=== PATIENT | female | born 1935 | race Caucasian/White ===

== ENCOUNTER 2016-10-18 05:39 | Inpatient (IN) | payer OTHER, MEDICARE ==
[2016-10-18] MEDS ORDERED: NS 1,000 ML IV ONE (05:49)
[2016-10-18] MEDS ORDERED: HYDROmorphONE/DILAUDID 1 MG/ML SYR IVP ONE (05:49)
[2016-10-18] MEDS ORDERED: ONDANSETRON 4 MG/2 ML VIAL IVP ONE (05:49)
--- NOTE | 2016-10-18 05:52 | EDPHY ---
H & P Stated Complaint: abd pain/distension; last BM 2 days ago Time Seen by Provider: 10/18/16 05:47 HPI/ROS: CHIEF COMPLAINT: Abdominal pain and vomiting HISTORY OF PRESENT ILLNESS: Patient is an 80-year-old female with a history of ovarian cancer multiple metastasis and surgeries and radiation. 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 Her son states that she has not had a bowel movement in 2 days and that this is typical of her small bowel obstructions. She states she did pass some gas yesterday. The son states that they typically try to do with this at home with oxycodone but that she cannot keep it down. She is admitted here in April of last year for 3 days and her symptoms resolved with an NG tube. She was given fentanyl and Zofran by EMS and now feels that her pain is much better down to a 4/10. Originally was 10/10. No fever. No chest pain or shortness of breath. She does feel distended and bloated. REVIEW OF SYSTEMS: Constitutional: denies: chills, fever, recent illness, recent injury EENTM: denies: blurred vision, double vision, nose congestion Respiratory: denies: cough, shortness of breath Cardiac: denies: chest pain, irregular heart rate, lightheadedness, palpitations Gastrointestinal/Abdominal: see HPI Genitourinary: denies: dysuria, frequency, hematuria, pain Musculoskeletal: denies: joint pain, muscle pain Skin: denies: lesions, rash, jaundice, bruising Neurological: denies: headache, numbness, paresthesia, tingling, dizziness, weakness Hematologic/Lymphatic: denies: blood clots, easy bleeding, easy bruising Immunologic/allergic: denies: HIV/AIDS, transplant EXAM: GENERAL: Well-appearing, well-nourished and in no acute distress. HEAD: Atraumatic, normocephalic. EYES: Pupils equal round and reactive to light, extraocular movements intact, sclera anicteric, conjunctiva are normal. ENT: TMs normal, nares patent, oropharynx clear without exudates. Moist mucous membranes. NECK: Normal range of motion, supple without lymphadenopathy or JVD. LUNGS: Breath sounds clear to auscultation bilaterally and equal. No wheezes rales or rhonchi. HEART: Regular rate and rhythm without murmurs, rubs or gallops. ABDOMEN: Mildly distended, no focal tenderness. BACK: No CVA tenderness, no spinal tenderness, step-offs or deformities EXTREMITIES: Normal range of motion, no pitting or edema. No clubbing or cyanosis. NEUROLOGICAL: Cranial nerves II through XII grossly intact. Normal speech, normal gait. 5/5 strength, normal movement in all extremities, normal sensation PSYCH: Normal mood, normal affect. SKIN: Warm, dry, normal turgor, no visible rashes or lesions. Source: Patient Exam Limitations: No limitations - Personal History Current Tetanus/Diphtheria Vaccine: Unsure Tetanus Vaccine Date: unsure - Medical/Surgical History Hx Asthma: No Hx Chronic Respiratory Disease: No Hx Diabetes: No Hx Cardiac Disease: No Hx Renal Disease: No Hx Cirrhosis: No Hx Alcoholism: No Hx HIV/AIDS: No Hx Splenectomy or Spleen Trauma: No Other PMH: ovarian CA diag 30 yr ago with 7surg & 1 round of chemo, depression, back surgery, PNA. - Family History Significant Family History: No pertinent family hx - Social History Smoking Status: Never smoked Alcohol Use: Sober Drug Use: None Constitutional: Initial Vital Signs Temperature (C) 36.2 C 10/18/16 05:45 Heart Rate 65 10/18/16 05:45 Respiratory Rate 17 10/18/16 05:45 Blood Pressure 155/55 H 10/18/16 05:45 O2 Sat (%) 95 10/18/16 05:45 O2 Delivery Mode Nasal Cannula O2 (L/minute) 2 Allergies/Adverse Reactions: Iodinated Contrast Media - Oral and [Iodinated Contrast Media - IV Dye] Allergy (Verified 01/17/16 22:05) Dyspnea IODINE Allergy (Severe, Uncoded 09/01/14 11:40) Dyspnea DAISIES Allergy (Uncoded 09/01/14 11:40) Other-Enter Comments tape Allergy (Uncoded 09/01/14 11:40) Home Medications: Medication Instructions Recorded AMITRIPTYLINE HCL [Amitriptyline 25 mg PO HS 10/28/11 25 mg] Cyanocobalamin (Vitamin B-12) 1,000 mcg PO DAILY 10/28/11 [Vitamin B-12] Diazepam [Valium] 5 mg PO Q6 PRN 10/28/11 Multivitamin [Daily Multiple 1 each PO DAILY 10/28/11 Vitamin] Cholecalciferol Vit D3 [Vitamin D3 1,000 units PO DAILY 04/10/14 (*)] Lorazepam [Ativan] 1 mg PO HS 04/10/14 Sennosides/Docusate Sodium 2 each PO HS PRN 04/10/14 [Senokot-S] Acetaminophen [Tylenol 325mg (*)] 650 mg PO Q4 PRN #0 tab 01/20/16 DULoxetine [Cymbalta 30 MG (*)] 60 mg PO DAILY 04/24/16 Ondansetron HCl [Zofran] 4 mg PO Q6 PRN 04/24/16 Pregabalin [Lyrica 50mg (*)] 100 mg PO BID #120 cap 04/27/16 morphINE SR [Ms Contin/Oramorph 15 15 mg PO BID 10/18/16 mg (*)] Medical Decision Making - Diagnostics Imaging: Results: CT scan of the abdomen and pelvis was obtained. The results of the study are positive for small bowel obstruction and worsening mass in bladder and bones. The study was read by Dr. Navarrete. I viewed the images myself on the PACS system. ED Course/Re-evaluation: 6:55 a.[address]. we discussed the CT results. We have trouble getting blood work. I recommended NG tube and admission. The patient family agree. 7:00 a.m. I discussed the case with Dr. Dorie Jernigan who will admit to the medical service. She asked that I consult surgery. 7:00 a.m. I discussed the case with Dr. Tan Olivo who will consult. Differential Diagnosis: Partial list of the Differential diagnosis considered include but were not limited to; small bowel obstruction, electrolyte abnormality, gastritis and although unlikely based on the history and physical exam, I also considered ischemia, volvulus. - Data Points Laboratory Results: Laboratory Results 10/18/16 06:55 10/18/16 06:55 Medications Given: Discontinued Medications Hydromorphone HCl (Dilaudid) 0.5 mg IVP EDNOW ONE Stop: 10/18/16 05:50 Last Admin: 10/18/16 06:07 Dose: 0.5 mg Hydromorphone HCl (Dilaudid) 0.25 - 1 mg IVP Q4HRS PRN PRN Reason: Pain, Severe Unable to Take PO Stop: 10/28/16 07:17 Last Admin: 10/18/16 14:15 Dose: 0.5 mg Hydromorphone HCl (Dilaudid) 0.25 - 1 mg IVP Q2 PRN PRN Reason: Pain, Severe Unable to Take PO Stop: 10/28/16 07:17 Last Admin: 10/19/16 13:07 Dose: 1 mg Sodium Chloride (Ns) 1,000 mls @ 0 mls/hr IV ONCE ONE PRN Reason: Wide Open Stop: 10/18/16 05:50 Last Admin: 10/18/16 06:04 Dose: 1,000 mls Potassium Chloride/Dextrose/Sod Cl (D5w Ns W/ 20 Kcl/L) 1,000 mls @ 125 mls/hr IV CONT AICHA Stop: 04/16/17 10:44 Last Admin: 10/18/16 15:16 Dose: 1,000 mls Lorazepam (Ativan Injection) 0.5 - 1 mg IVP Q4HRS PRN PRN Reason: Anxiety, Unable to Take PO Stop: 04/16/17 20:11 Last Admin: 10/18/16 20:59 Dose: 1 mg Ondansetron HCl (Zofran) 4 mg IVP EDNOW ONE Stop: 10/18/16 05:50 Last Admin: 10/18/16 06:04 Dose: 4 mg Ondansetron HCl (Zofran) 4 mg IVP Q4HRS PRN PRN Reason: Nausea/Vomiting, Can't Take PO Stop: 04/16/17 07:17 Last Admin: 10/18/16 14:15 Dose: 4 mg Promethazine HCl (Phenergan Injection) 6.25 - 12.5 mg IVP Q6HRS PRN PRN Reason: Nausea/Vomiting, Use 2nd Stop: 04/16/17 07:17 Last Admin: 10/18/16 15:25 Dose: 12.5 mg Departure - Departure Disposition: [facility] Acute Clinical Impression: Small bowel obstruction Condition: Fair
[2016-10-18] MEDS ORDERED: BENZOCAINE UNIT DOSE SPRAY HURRICAINE MM ONE (07:10)
[2016-10-18 07:14] LABS: % IMMATURE GRANULYOCYTES 0.3 % (0.0-1.1); ABSOLUTE IMMATURE GRANULOCYTES 0.04 10^3/uL (0.00-0.10); ADD DIFF? NO; ADD MORPH? NO; ADD SCAN? NO; ATYPICAL LYMPHOCYTE FLAG 0 (0-99); FRAGMENT RBC FLAG 0 (0-99); HEMATOCRIT 38.1 % (38.0-47.0); HEMOGLOBIN 12.8 g/dL (12.6-16.3); LEFT SHIFT FLG 30 (0-99); LIPEMIA HEMOLYSIS FLAG 80 (0-99); MEAN CELL HEMOGLOBIN 29.2 pg (27.9-34.1); MEAN CELL HEMOGLOBIN CONCENTR. 33.6 g/dL (32.4-36.7); MEAN CELL VOLUME 86.8 fL (81.5-99.8); MEAN PLATELET VOLUME 13.1 fL (8.7-11.7); PLATELET CLUMPS FLAG 0 (0-99); PLATELET COUNT 143 10^3/uL (150-400); RED BLOOD CELL COUNT 4.39 10^6/uL (4.18-5.33); RED CELL DISTRIBUTION WIDTH 14.4 % (11.5-15.2)
[2016-10-18] MEDS ORDERED: ACETAMINOPHEN 650 MG SUPP PR PRN (07:18)
[2016-10-18] MEDS ORDERED: ONDANSETRON 4 MG/2 ML VIAL IVP PRN (07:18)
[2016-10-18] MEDS ORDERED: PROMETHAZINE HCL 25 MG/ML INJ ONE (07:25)
[2016-10-18] MEDS: PROMETHAZINE HCL 25 MG/ML INJ IVP PRN ×2 (07:31→15:25)
[2016-10-18] MEDS ORDERED: HYDROmorphONE/DILAUDID 1 MG/ML SYR ONE (07:37)
[2016-10-18 07:46] LABS: ALANINE AMINOTRANSFERASE 33 IU/L (9-52); ALBUMIN 3.5 g/dL (3.5-5.0); ALKALINE PHOSPHATASE 61 IU/L (38-126); ANION GAP 10 mEq/L (8-16); ASPARTATE AMINOTRANSFERASE 21 IU/L (14-46); BILIRUBIN,TOTAL 0.6 mg/dL (0.1-1.4); BILIRUBIN-CONJUGATED 0.2 mg/dL (0.0-0.5); BILIRUBIN-UNCONJUGATED 0.4 mg/dL (0.0-1.1); CALCIUM 8.5 mg/dL (8.5-10.4); CARBON DIOXIDE 28 mEq/l (22-31); CHLORIDE 102 mEq/L (97-110); CREATININE 0.6 mg/dL (0.6-1.0); GLOMERULAR FILTRATION RATE > 60; GLUCOSE 110 mg/dL (70-100); POTASSIUM 4.2 mEq/L (3.5-5.2); SODIUM 140 mEq/L (134-144); TOTAL PROTEIN 6.5 g/dL (6.3-8.2)
--- NOTE | 2016-10-18 07:48 | PDGENHP ---
History and Physical - Chief Complaint abdominal pain, N/V - History of Present Illness 80 yo female with h/o ovarian cancer and multiple prior SBO's presents to ED with abdominal pain, nausea and vomiting. She was diagnosed with ovarian cancer 30 years ago and has undergone 7 surgeries and radiation, which left her with numbness and decreased mobility of the LLE. She was admitted in 04/2016 for a SBO and recovered without surgical intervention and NG tube decompression. She denies fevers or chills. Her last BM was 2 days ago, she did pass flatus yesterday. She began vomiting yesterday and the pain increased. She takes chronic opiates for back pain, but has been unable to keep her meds down. In the ED, a CT scan revealed partial SBO vs ileus and increased metastatic disease in her right pelvic mass and bone mets. An NG tube is placed. She is admitted to the hospital for further management. History Information - Allergies/Home Medication List Allergies/Adverse Reactions: Iodinated Contrast Media - Oral and [Iodinated Contrast Media - IV Dye] Allergy (Verified 01/17/16 22:05) Dyspnea IODINE Allergy (Severe, Uncoded 09/01/14 11:40) Dyspnea DAISIES Allergy (Uncoded 09/01/14 11:40) Other-Enter Comments tape Allergy (Uncoded 09/01/14 11:40) Home Medications: AMITRIPTYLINE HCL [Amitriptyline 25 mg] 25 mg PO HS 10/28/11 [Last Taken ] Cyanocobalamin (Vitamin B-12) [Vitamin B-12] 1,000 mcg PO DAILY 10/28/11 [Last Taken 04/23/16] Diazepam [Valium] 5 mg PO Q6 PRN 10/28/11 [Last Taken 04/24/16] Letrozole [Femara 2.5 mg (*)] 2.5 mg PO DAILY 10/28/11 [Last Taken 04/24/16] Multivitamin [Daily Multiple Vitamin] 1 each PO DAILY 10/28/11 [Last Taken 04/23] Cholecalciferol Vit D3 [Vitamin D3 (*)] 1,000 units PO DAILY 04/10/14 [Last Taken 04/23/16] Lorazepam [Ativan] 1 mg PO HS 04/10/14 [Last Taken 04/23/16] Pregabalin [Lyrica 50mg (*)] 100 mg PO BID 04/10/14 [Last Taken 04/23/16] Sennosides/Docusate Sodium [Senokot-S] 2 each PO HS PRN 04/10/14 [Last Taken 10/08] DULoxetine [Cymbalta 30 MG (*)] 30 mg PO DAILY 04/24/16 [Last Taken 04/23/16] Ondansetron HCl [Zofran] 4 mg PO Q6 PRN 04/24/16 [Last Taken Unknown] I have personally reviewed and updated: family history, medical history, social history, surgical history - Past Medical History Additional medical history: ovarian cancer, chronic back pain, continuous opioid dependence, recurrent SBO - Surgical History Additional surgical history: multiple abdominal surgeries for ovarian cancer and recurrent SBO - Family History Positive for: non-pertinent - Social History Smoking Status: Never smoked Alcohol Use: Sober Drug Use: None Review of Systems ROS: 10pt was reviewed & negative except for what was stated in HPI & below Physical Exam Temp Pulse Resp BP Pulse Ox 36.2 C 64 16 155/55 H 97 10/18/16 05:45 10/18/16 06:08 10/18/16 06:08 10/18/16 06:08 10/18/16 06:08 Constitutional: no apparent distress Eyes: PERRL Ears, Nose, Mouth, Throat: moist mucous membranes Cardiovascular: regular rate and rhythym Respiratory: no respiratory distress, clear to auscultation Gastrointestinal: other (decreased bowel tones, soft, mild distention, + epigastric TTP, no r/r/g) Skin: warm Neurologic: AAOx3 Psychiatric: interacting appropriately Lab Data & Imaging Review 10/18/16 06:55 10/18/16 06:55 WBC 11.75 10^3/uL (3.80-9.50) H 10/18/16 06:55 RBC 4.39 10^6/uL (4.18-5.33) 10/18/16 06:55 Hgb 12.8 g/dL (12.6-16.3) 10/18/16 06:55 Hct 38.1 % (38.0-47.0) 10/18/16 06:55 MCV 86.8 fL (81.5-99.8) 10/18/16 06:55 MCH 29.2 pg (27.9-34.1) 10/18/16 06:55 MCHC 33.6 g/dL (32.4-36.7) 10/18/16 06:55 RDW 14.4 % (11.5-15.2) 10/18/16 06:55 Plt Count 143 10^3/uL (150-400) L 10/18/16 06:55 MPV 13.1 fL (8.7-11.7) H 10/18/16 06:55 Neut % (Auto) 89.6 % (39.3-74.2) H 10/18/16 06:55 Lymph % (Auto) 5.2 % (15.0-45.0) L 10/18/16 06:55 [place] % (Auto) 4.5 % (4.5-13.0) 10/18/16 06:55 Eos % (Auto) 0.1 % (0.6-7.6) L 10/18/16 06:55 Baso % (Auto) 0.3 % (0.3-1.7) 10/18/16 06:55 Nucleat RBC Rel Count 0.0 % (0.0-0.2) 10/18/16 06:55 Absolute Neuts (auto) 10.53 10^3/uL (1.70-6.50) H 10/18/16 06:55 Absolute Lymphs (auto) 0.61 10^3/uL (1.00-3.00) L 10/18/16 06:55 Absolute Monos (auto) 0.53 10^3/uL (0.30-0.80) 10/18/16 06:55 Absolute Eos (auto) 0.01 10^3/uL (0.03-0.40) L 10/18/16 06:55 Absolute Basos (auto) 0.03 10^3/uL (0.02-0.10) 10/18/16 06:55 Absolute Nucleated RBC 0.00 10^3/uL (0-0.01) 10/18/16 06:55 Immature Gran % 0.3 % (0.0-1.1) 10/18/16 06:55 Immature Gran # 0.04 10^3/uL (0.00-0.10) 10/18/16 06:55 Assessment & Plan Assessment: Small bowel obstruction (Acute) - NG tube for decompression, NPO, pain control, anti-emetics. Surgery was consulted and Dr. Olivo will see patient. Ovarian cancer with metastatic disease - primary oncologist is Dr. Wood. CT reveals increased metastatic disease. She is planning to pursue gene therapy tx. Will need oncology consult. Chronic pain with continuous opioid dependence - holding oral pain meds, IV dilaudid for pain control DVT PPLX - Lovenox Full code Dispo - will likely require >48 hrs hospitalization for ongoing management of her SBO
[2016-10-18] MEDS: HYDROmorphONE/DILAUDID 1 MG/ML SYR IVP PRN ×3 (07:58→20:57)
--- NOTE | 2016-10-18 08:02 | DX ---
KUB History: Abdominal pain. Check NG tube placement, metastatic disease from ovarian cancer Findings: The NG tube tip is in the distal third of the esophagus. There are no dilated loops or abno rmal calcifications. Retroperitoneal fat planes are intact.. Prominent fecal material in the upper ab domen suggests constipation. There is scarring +-small amount of atelectasis at the left base. Impression: NG tube tip in the distal esophagus.. Results called to Taylor the nurse in the ED caring for the patient at 8:00 AM
--- NOTE | 2016-10-18 08:25 | DX ---
AP portable abdomen 0813 hours. History: Check NG tube placement. Findings: Comparison to exam performed earlier today at 0733 hours. The NG tube tip is now in the gastric body. Bowel gas pattern is unremarkable. There are no significa ntly dilated loops of bowel in the upper abdomen. Patchy infiltrate is suspected at the left lung bas e. Osseous structures are unchanged. Impression: 1. NG tube tip in the region of the gastric body.
[2016-10-18] MEDS: D5W NS W/ 20 KCl/L 1,000 ML IV SCH ×2 (12:21→15:16)
--- NOTE | 2016-10-18 12:21 | CT ---
CT Abdomen and Pelvis Unenhanced Indication: Abdominal pain, contrast ALLERGY, known ovarian cancer with metastases. Comparison: CT abdomen pelvis April 24, 2016. Technique: Axial unenhanced CT imaging was performed through the abdomen and pelvis without contrast . Dose reduction techniques were utilized. Findings: Abdomen: Mild basilar scarring/atelectasis is present. Left lower lobe bulla is noted. Heart size is normal. 2 hypodensities in the dome of the liver are new/increased in conspicuity since the compariso n, poorly characterized on this unenhanced study. Cholelithiasis is noted. The spleen, pancreas, and adrenals are normal. A 1.3 cm posterior right renal cyst is noted in. No renal or ureteral stones are identified. There is no obstructive uropathy. There is distention of small bowel in the pelvis, with mild mesenteric edema and trace free fluid in the region, with small bowel loops measuring up to 3.5 cm. A transition point is not identified. Mode rate stool is present in the colon. An area of apparent thickening in the hepatic flexure and transve rse colon (series 4 image 104) is likely related to underdistention. Moderate atherosclerosis is present in a normal caliber aorta. Numerous small sclerotic osseous metastases are slightly increased in size and number. Lumbar fusion hardware from L2 through S1, spanning a moderate pathologic compression fracture at L5, is stable. Th ere is stable mild retropulsion of the superior aspect of L5. L4 and L5 laminectomies are noted. Pelvis: A 4.5 x 4.5 cm mass indenting the right margin of the bladder (series 4 image 244) previous ly measured 3.3 x 2.9 cm. The bladder is displaced by the mass but otherwise has a grossly normal une nhanced appearance. Probable fat necrosis is noted in the left pelvis with peripheral calcification, unchanged. There is stable mild soft tissue thickening in the left presacral region extending to the left pelvic sidewall. There is stable appearance of irregular sclerosis in the iliac wings, left grea ter than right, with no change in appearance of a vertically oriented lucency suggesting a fracture l ine in the left sacrum. Impression: 1. Small bowel distention in the central pelvis suggesting ileus/obstruction. 2. Worsening bone metastases. 3. Enlarging right pelvic metastasis. 4. Probable hepatic metastases, new/increased since the comparison. 5. Apparent thickening of the proximal transverse colon most likely related to underdistention. 6. Additional findings as above. Attention: This examination does not use radiographic contrast, and as such, provides only a limite d evaluation of the abdomen, pelvis and retroperitoneum. Findings discussed with Daniel Castano 10/18/2016 at 650 hours. The preliminary and final reports were concordant.
[2016-10-18 12:35] LABS: COLOR YELLOW; LEUKOCYTE ESTERASE,URINE NEGATIVE (NEGATIVE); NITRITE,URINE NEGATIVE (NEGATIVE)
[2016-10-18] MEDS: ENOXAPARIN 40 MG/0.4 ML SYR SC SCH (13:00)
--- NOTE | 2016-10-18 16:52 | HOSPPROG ---
Hospitalist Progress Note Assessment/Plan: Patient is an 80-year-old female with history of ovarian cancer and multiple prior small-bowel obstructions presented to the emergency room with abdominal pain, nausea and vomiting. She was diagnosed with ovarian cancer 30 years ago and has had 7 surgeries and radiation. She was admitted earlier today, I came by to f/u with her #. small bowel obstruction * CT scan reveals a partial small-bowel obstruction versus ileus and decreased metastatic disease in the right pelvic area with associated bone Mets * an NG tube is in place * surgery has been consulted/appreciate their involvement #. continuous opioid dependence for chronic pain * p.r.n. Dilaudid #. ovarian cancer with metastatic disease * sees Dr. Wood in the outpatient setting * will likely need and a Oncology consult * she plans to pursue gene therapy #. dvt prophylaxis: LMWH #. Plan: cont close monitoring/ will recheck labs in a.m. Subjective: Beena has some minimal abdominal pain. Feels better than when she came in. Objective: Vital Signs Temp Pulse Resp BP Pulse Ox 36.8 C 74 16 127/55 H 90 L 10/18/16 15:19 10/18/16 15:19 10/18/16 15:19 10/18/16 15:19 10/18/16 15:19 10/17/16 10/18/16 10/19/16 05:59 05:59 05:59 Intake Total 1000 Output Total 102 Balance 898 - Physical Exam Constitutional: no apparent distress, appears nourished Eyes: PERRL Ears, Nose, Mouth, Throat: hearing normal Gastrointestinal: tenderness (slight with gentle palp), No normoactive bowel sounds (hypoactive) Skin: warm Musculoskeletal: no muscle tenderness Neurologic: AAOx3 Psychiatric: interacting appropriately, not anxious ICD10 Worksheet Patient Problems: Problems Problem Status Diagnosed Small bowel obstruction Acute Granulosa cell carcinoma Acute Pneumonia Acute
--- NOTE | 2016-10-18 17:13 | GCON ---
[f rep st] CONSULTATION HISTORY OF PRESENT ILLNESS: We were asked by Medicine to consult on this 80-year-old female with sma ll-bowel obstruction. Patient has had multiple small-bowel obstructions over the last 2 years, all o f which resolved with nasogastric treatment and bowel rest. She has never had surgery for bowel obst ructions. She has a history of at least 7 surgeries related to ovarian cancer that are believed to h ave caused adhesions. She reports she has been doing overall well since her last bowel obstruction i n April of 2016. Approximately 4 hours before being brought to the emergency department, during the night the patient awoke with abdominal pain, which she rated as severe. She reports yesterday she w as keeping up with her oral intake and is well hydrated she believes. She had no symptoms during the day yesterday therefore, she was tolerating a regular diet and had normal bowel movements. Since a rriving in the emergency department, she has had a nasogastric tube placed. She reports her pain is now minimal. She is much improved, which is similar to her other episodes. Presently, she rates her pain 1 to 2 out of 10. It is mostly over the epigastric region, which is where the pain seems to be centered when it was severe. She had passed gas just a few minutes ago in the emergency department while she was urinating. She reports that also helped her feel better, less crampy according to her. She is accompanied by her son in the emergency department. ALLERGIES: Iodine, tape. MEDICATIONS: Oxycodone, amitriptyline, Valium, Femara, Lyrica, Ativan, Zofran, Cymbalta. Zofran is taken p.r.n. PAST MEDICAL HISTORY: Ovarian cancer, chronic pain, recurrent small-bowel obstructions. SOCIAL HISTORY: Patient lives with her son. She is a nonsmoker. No alcohol use. PAST SURGICAL HISTORY: Surgeries for ovarian cancer. REVIEW OF SYSTEMS: She had a negative 10-point review of systems. PHYSICAL EXAM: GENERAL: Patient is a very pleasant alert female, nasogastric tube in place. Patien t appears very comfortable, talkative. She is accompanied by her son in the emergency department. H EAD AND NECK: Normocephalic,atraumatic. CHEST: CTA bilaterally. HEART: Regular rhythm and rate. ABDOMEN: There is an old midline scar over her entire midline. Her abdomen is nondistended. She is nontender to palpation throughout all 4 quadrants. She has bowel sounds on auscultation. EXTREMI TIES: There is no lower extremity edema. LABORATORY STUDIES: White count 11.7. Grossly normal complete metabolic panel. IMAGING: Latest abdominal x-ray demonstrates NG-tube in correct position, no significant dilated loo ps of bowel. CAT scan of abdomen and pelvis demonstrates small-bowel distention suggesting ileus/obs truction, worsening bone metastasis, right pelvic metastasis, hepatic metastasis. IMPRESSION: An 80-year-old female with small-bowel obstruction in the setting of history of multiple surgeries for ovarian cancer, also with metastatic ovarian cancer. RECOMMENDATION: Patient is doing quite well at this point and we will continue nasogastric tube suct ion. Patient will continue on IV fluids, be kept n.p.o. for today. Dr. Olivo will see the patient s hortly, and I have discussed the case with him. Hopefully, she can avoid surgery during this hospit al course stay. If she is doing well in the morning tomorrow, we will most likely do a trial of clam ping the nasogastric tube and then advance her to a clear diet if she tolerates that well. /[id number]/MODL
[2016-10-18] MEDS ORDERED: LORazepam 2 MG/ML INJ IVP PRN (20:12)
[2016-10-18] MEDS ORDERED: PROMETHAZINE HCL 25 MG/ML INJ IVP PRN (20:12)
[2016-10-18] MEDS: ONDANSETRON 4 MG/2 ML VIAL IVP PRN (21:05)
--- NOTE | 2016-10-18 21:43 | SOAPPROG ---
SOAP Progress Note Assessment/Plan: Assessment: 80 FEMALE WITH OVARIAN CANCER AND RECURRENT SBO SP MULTIPLE ABD SURGERIES FEELING MUCH BETTER THIS EVENNING WITH + BM AND FLATUS/ ABD SOFT, NONTENDER WITH BS NG MINIMAL OUTPUT AND TOLERATED CLAMPING Plan: OBS/ PROBABLE DC NG IN AM/ MAY NEED SBFT 10/18/16 21:37 Objective: Vital Signs Temp Pulse Resp BP Pulse Ox 36.8 C 74 16 125/62 H 97 10/18/16 19:49 10/18/16 19:49 10/18/16 19:49 10/18/16 19:49 10/18/16 19:49 10/17/16 10/18/16 10/19/16 05:59 05:59 05:59 Intake Total 1528 Output Total 152 Balance 1376 ICD10 Worksheet Patient Problems: Problems Problem Status Diagnosed Small bowel obstruction Acute Granulosa cell carcinoma Acute Pneumonia Acute
[2016-10-19] MEDS: HYDROmorphONE/DILAUDID 1 MG/ML SYR IVP PRN ×4 (01:44→13:07)
[2016-10-19 05:04] LABS: % IMMATURE GRANULYOCYTES 0.2 % (0.0-1.1); ABSOLUTE IMMATURE GRANULOCYTES 0.01 10^3/uL (0.00-0.10); ADD DIFF? NO; ADD MORPH? NO; ADD SCAN? NO; ATYPICAL LYMPHOCYTE FLAG 10 (0-99); FRAGMENT RBC FLAG 0 (0-99); HEMATOCRIT 32.8 % (38.0-47.0); HEMOGLOBIN 10.8 g/dL (12.6-16.3); LEFT SHIFT FLG 10 (0-99); LIPEMIA HEMOLYSIS FLAG 80 (0-99); MEAN CELL HEMOGLOBIN 29.3 pg (27.9-34.1); MEAN CELL HEMOGLOBIN CONCENTR. 32.9 g/dL (32.4-36.7); MEAN CELL VOLUME 89.1 fL (81.5-99.8); MEAN PLATELET VOLUME 13.4 fL (8.7-11.7); PLATELET CLUMPS FLAG 10 (0-99); PLATELET COUNT 97 10^3/uL (150-400); RED BLOOD CELL COUNT 3.68 10^6/uL (4.18-5.33); RED CELL DISTRIBUTION WIDTH 14.6 % (11.5-15.2)
[2016-10-19 05:20] LABS: ALANINE AMINOTRANSFERASE 31 IU/L (9-52); ALBUMIN 2.7 g/dL (3.5-5.0); ALKALINE PHOSPHATASE 43 IU/L (38-126); ANION GAP 3 mEq/L (8-16); ASPARTATE AMINOTRANSFERASE 15 IU/L (14-46); BILIRUBIN,TOTAL 0.6 mg/dL (0.1-1.4); CALCIUM 7.1 mg/dL (8.5-10.4); CARBON DIOXIDE 27 mEq/l (22-31); CHLORIDE 113 mEq/L (97-110); CREATININE 0.7 mg/dL (0.6-1.0); GLOMERULAR FILTRATION RATE > 60; GLUCOSE 112 mg/dL (70-100); POTASSIUM 4.2 mEq/L (3.5-5.2); SODIUM 143 mEq/L (134-144); TOTAL PROTEIN 5.3 g/dL (6.3-8.2)
[2016-10-19] MEDS: ENOXAPARIN 40 MG/0.4 ML SYR SC SCH (08:41)
--- NOTE | 2016-10-19 09:28 | DX ---
Abdomen, Two Views 8:19 a.m. Indication: Follow up small bowel obstruction. Technique: Upright and supine views. Comparison: CT abdomen and pelvis dated October 18, 2016 and abdominal radiograph from October 18, 2016. Findings: Bibasilar atelectasis and trace bilateral pleural effusions are unchanged. Esophagogastric tube is present with the tip and sideport overlying the decompressed stomach. No air-fluid level or d ilated loops of small bowel; however, the loops are filled with fluid on the CT from one day prior an d likely less conspicuous due to the intraluminal fluid). Moderate constipation throughout the right and left hemicolon is unchanged. The long low posterior fusion construct is unchanged. Impression: 1. Improving small bowel pattern. Low-grade partial small bowel obstruction versus ileus remains in t he differential diagnosis given the fluid-filled small bowel. 2. Minimal bibasilar atelectasis and trace bilateral pleural effusions. Comment: Results were discussed with Brien Garcia PA-C, October 19, 2016.
[2016-10-19] MEDS: ONDANSETRON 4 MG/2 ML VIAL IVP PRN ×3 (10:25→18:25)
--- NOTE | 2016-10-19 11:34 | SOAPPROG ---
SOAP Progress Note Assessment/Plan: Assessment: 80yo female with SBO, ovarian cancer No significant pain, had BM, passing gas. Ab xray reviewed and no dilated loops although on CT loops were fluid filled yesterday so may be not accurate. PE NG tube in place abdomen soft nontender bowel sounds upon auscultation Plan: will d/c NG tube if SBFT ok. 10/19/16 11:32 Objective: Vital Signs Temp Pulse Resp BP Pulse Ox 36.8 C 89 16 123/53 H 90 L 10/19/16 11:04 10/19/16 11:04 10/19/16 11:04 10/19/16 11:04 10/19/16 11:04 Laboratory Results 10/19/16 04:30 10/19/16 04:30 10/18/16 10/19/16 10/20/16 05:59 05:59 05:59 Intake Total 2622 Output Total 402 Balance 2220 ICD10 Worksheet Patient Problems: Problems Problem Status Diagnosed Small bowel obstruction Acute Granulosa cell carcinoma Acute Pneumonia Acute
[2016-10-19] MEDS ORDERED: diphenhydrAMINE 25 MG CAP PO PRN (12:07)
[2016-10-19] MEDS ORDERED: NON-FORMULARY NEW DRUG (Ondansetron Hcl [Zofran] 4 MG) PO PRN (12:08)
[2016-10-19] MEDS ORDERED: DIAZEPAM 5 MG TAB PO PRN (12:08)
[2016-10-19] MEDS ORDERED: SENNOSIDES/DOCUSATE SODIUM TAB PO PRN (12:08)
[2016-10-19] MEDS ORDERED: DULoxetine 30 MG CAP PO SCH (12:30)
[2016-10-19] MEDS ORDERED: ONDANSETRON DISINTEGRATING 4 MG TAB PO PRN (12:45)
--- NOTE | 2016-10-19 13:02 | DX ---
Small Bowel Follow Through, 8:53 a.m. Indication: Follow-up small bowel obstruction. Technique: Inspector Brake Lining view of the abdomen obtained. After the oral administration of Entero Vu, serial saroj ges including intermittent spot images of the small bowel were obtained. Fluoroscopy Time: 0 minutes. Findings: The learning disabled teacher view reveals mild constipation and normal caliber loops of bowel. Contrast reache s the ascending colon by 45 minutes. Several loops of terminal ileum are minimally distended without fold thickening or edema. The remainder of the small bowel is normal caliber with smooth normal folds . Impression: Normal transit time. Resolved small bowel obstruction. Comment: Results were called to Arash Garcia PA-C.
--- NOTE | 2016-10-19 13:21 | HOSPPROG ---
Hospitalist Progress Note Assessment/Plan: Patient is an 80-year-old female with history of ovarian cancer and multiple prior small-bowel obstructions presented to the emergency room with abdominal pain, nausea and vomiting. She was diagnosed with ovarian cancer 30 years ago and has had 7 surgeries and radiation. #. small bowel obstruction * CT scan reveals a partial small-bowel obstruction versus ileus and decreased metastatic disease in the right pelvic area with associated bone Mets * an NG tube is in place * abdominal xray shows improvement * small bowel study shows normal transit times * NG to be removed, trial of cl liquids #. continuous opioid dependence for chronic pain * p.r.n. Dilaudid #. ovarian cancer with metastatic disease * sees Dr. Wood in the outpatient setting * seh will f/u with her oncologist in [place] * she plans to pursue gene therapy #. dvt prophylaxis: LMWH #. Plan: poss dc later today if cont to do well Subjective: Beena is feeling well/ no complaints. Objective: Vital Signs Temp Pulse Resp BP Pulse Ox 36.8 C 89 16 123/53 H 90 L 10/19/16 11:04 10/19/16 11:04 10/19/16 11:04 10/19/16 11:04 10/19/16 11:04 Laboratory Results 10/19/16 04:30 10/19/16 04:30 10/18/16 10/19/16 10/20/16 05:59 05:59 05:59 Intake Total 2622 Output Total 402 Balance 2220 - Physical Exam Constitutional: no apparent distress, appears nourished, not in pain Eyes: PERRL Ears, Nose, Mouth, Throat: hearing normal Respiratory: no respiratory distress Gastrointestinal: normoactive bowel sounds, soft, non-tender abdomen Skin: warm, normal color Musculoskeletal: full muscle strength Neurologic: AAOx3 Psychiatric: interacting appropriately ICD10 Worksheet Patient Problems: Problems Problem Status Diagnosed Small bowel obstruction Acute Granulosa cell carcinoma Acute Pneumonia Acute
[2016-10-19] MEDS: DULoxetine 60 MG CAP PO SCH (14:42)
[2016-10-19] MEDS: PREGABALIN 50 MG CAP PO SCH ×2 (14:43→22:26)
--- NOTE | 2016-10-19 18:36 | SOAPPROG ---
SOAP Progress Note Assessment/Plan: Assessment: 80 FEMALE WITH OVARIAN CANCER AND RECURRENT SBO SP MULTIPLE ABD SURGERIES FEELING MUCH BETTER THIS EVENNING WITH + BM AND FLATUS/ ABD SOFT, NONTENDER WITH BS NG MINIMAL OUTPUT AND TOLERATED CLAMPING Plan: OBS/ PROBABLE DC NG IN AM/ MAY NEED SBFT 10/18/16 21:37 10/19/16 18:35 MUCH IMPROVED/ AFEBRILE/ NG OUT/ SBFT WNL/ WILL START LIQUIDS / HOME SOON Objective: Vital Signs Temp Pulse Resp BP Pulse Ox 36.6 C 79 16 130/56 H 90 L 10/19/16 15:26 10/19/16 15:26 10/19/16 15:26 10/19/16 15:26 10/19/16 15:26 Laboratory Results 10/19/16 04:30 10/19/16 04:30 10/18/16 10/19/16 10/20/16 05:59 05:59 05:59 Intake Total 2622 Output Total 402 Balance 2220 ICD10 Worksheet Patient Problems: Problems Problem Status Diagnosed Small bowel obstruction Acute Granulosa cell carcinoma Acute Pneumonia Acute
[2016-10-19] MEDS: PROMETHAZINE HCL 25 MG/ML INJ IVP PRN (20:41)
[2016-10-19] MEDS ORDERED: LORazepam 1 MG TAB PO SCH (21:00)
[2016-10-19] MEDS ORDERED: AMITRIPTYLINE HCL 25 MG TAB PO SCH (21:00)
[2016-10-19] MEDS: morphINE SR 15 MG TAB PO SCH (21:03)
[2016-10-19] MEDS ORDERED: LORazepam 2 MG/ML INJ IVP ONE (22:33)
[2016-10-19] MEDS ORDERED: LIDOCAINE 1% 5 ML SDV ONE (23:13)
[2016-10-20] MEDS: PROMETHAZINE HCL 25 MG/ML INJ IVP PRN ×2 (04:51→13:10)
[2016-10-20 08:38] VITALS: RESP 18
[2016-10-20] MEDS ORDERED: CHOLECALCIFEROL VIT D3 1,000 UNITS TAB PO SCH (09:00)
[2016-10-20] MEDS ORDERED: MULTIVITAMINS 1 EACH TAB PO SCH (09:00)
[2016-10-20] MEDS ORDERED: NON-FORMULARY NEW DRUG (Cyanocobalamin (Vitamin B-12) [Vitamin B-12] 1,000 MCG) PO SCH (09:00)
[2016-10-20] MEDS ORDERED: CYANO/VITAMIN B12 1000 MCG TAB PO SCH (09:00)
--- NOTE | 2016-10-20 09:04 | HOSPPROG ---
Hospitalist Progress Note Assessment/Plan: Patient is an 80-year-old female with history of ovarian cancer and multiple prior small-bowel obstructions presented to the emergency room with abdominal pain, nausea and vomiting. She was diagnosed with ovarian cancer 30 years ago and has had 7 surgeries and radiation. #. small bowel obstruction * CT scan reveals a partial small-bowel obstruction versus ileus and decreased metastatic disease in the right pelvic area with associated bone Mets * an NG tube is in place * abdominal xray shows improvement * small bowel study shows normal transit times * eating clear liquids * had something patient described being 'stuck' in her esophagus last night/ thinks this is better #. continuous opioid dependence for chronic pain * p.r.n. morpphine #. ovarian cancer with metastatic disease * sees Dr. Wood in the outpatient setting * se will f/u with her oncologist in [place] * she plans to pursue gene therapy #. dvt prophylaxis: LMWH #. Plan: dc Subjective: Beena thinks overall she is better. Objective: Vital Signs Temp Pulse Resp BP Pulse Ox 36.8 C 71 18 138/77 H 97 10/20/16 08:00 10/20/16 08:00 10/20/16 08:00 10/20/16 08:00 10/20/16 08:00 Laboratory Results 10/19/16 04:30 10/19/16 04:30 10/19/16 10/20/16 10/21/16 05:59 05:59 05:59 Intake Total 2622 500 Output Total 402 Balance 2220 500 - Physical Exam Constitutional: no apparent distress, appears nourished Eyes: PERRL Ears, Nose, Mouth, Throat: hearing normal Cardiovascular: regular rate and rhythym Respiratory: no respiratory distress Gastrointestinal: normoactive bowel sounds Skin: warm, normal color Musculoskeletal: no muscle tenderness Neurologic: AAOx3 Psychiatric: interacting appropriately ICD10 Worksheet Patient Problems: Problems Problem Status Diagnosed Small bowel obstruction Acute Granulosa cell carcinoma Acute Pneumonia Acute
--- NOTE | 2016-10-20 09:38 | SOAPPROG ---
SOAP Progress Note Assessment/Plan: Assessment/Plan - 80yo female c ovarian ca and recurrent SBO - No issues overnight - SBFt showed contrast into colon at 45mins, has tolerated some clears - Abdomen is soft, nondistended with excellent bowel sounds - Would plan to ADAT, d/c when eating and pain controlled. No plans for surgical intervention at this time 10/20/16 09:37 Subjective: Feeling better, has back pain Objective: Vital Signs Temp Pulse Resp BP Pulse Ox 36.8 C 71 18 138/77 H 97 10/20/16 08:00 10/20/16 08:00 10/20/16 08:00 10/20/16 08:00 10/20/16 08:00 Laboratory Results 10/19/16 04:30 10/19/16 04:30 10/19/16 10/20/16 10/21/16 05:59 05:59 05:59 Intake Total 2622 500 Output Total 402 Balance 2220 500 ICD10 Worksheet Patient Problems: Problems Problem Status Diagnosed Small bowel obstruction Acute Granulosa cell carcinoma Acute Pneumonia Acute
[2016-10-20 11:18] VITALS: BP 137/63; PULSE 79; TEMP 98.6; O2SAT 91
[2016-10-20] MEDS: PREGABALIN 50 MG CAP PO SCH (11:25)
[2016-10-20] MEDS: DULoxetine 60 MG CAP PO SCH (12:57)
[2016-10-20] MEDS: ENOXAPARIN 40 MG/0.4 ML SYR SC SCH (12:57)
--- NOTE | 2016-10-20 13:48 | GDS ---
[f rep st] DISCHARGE SUMMARY DISCHARGE DIAGNOSES: 1. Small-bowel obstruction. 2. Continuous opioid dependence for chronic pain. 3. Ovarian cancer with metastatic disease. CONSULTATIONS: Arash Garcia PA-C with the Surgical Team. BRIEF HISTORY: The patient is an 80-year-old female with a history of ovarian cancer, multiple prior small bowel obstructions. She presented to the emergency room with abdominal pain, nausea and vomit ing. She was diagnosed with ovarian cancer approximately 30 years ago and has undergone 7 surgeries and radiation. She was admitted in April of this past year for a small bowel obstruction and recove red well without surgical intervention. On admission, an NG was placed and she was seen and evaluate d by the Surgical Team. She had multiple abdominal x-rays which showed a low-grade partial small bow el obstruction versus ileus. Subsequently, she had a small bowel x-ray performed which showed normal transit time and resolved small bowel obstruction. Today, she is tolerating clear liquids. She johnny l be discharged home and will follow up with Dr. Wood in the outpatient setting. HOSPITAL COURSE BY PROBLEM: 1. Small bowel obstruction. A CT scan reveals a partial small bowel obstruction versus an ileus and decreased metastatic disease at the right pelvic area with associated bone metastases. She overall did well during her stay. She was initially to be discharged last night, but she felt after eating s he got some pills stuck in her esophagus. She believes this is better today. She will be discharged home and if these symptoms recur to return to the emergency room. 2. Continuous opioid dependence for chronic pain. Her home medications have been resumed. 3. Ovarian cancer with metastatic disease to follow up with Dr. Wood in the outpatient setting. She plans to pursue gene therapy. PENDING LABS AND TESTS: None. CONDITION AT DISCHARGE: Stable. Blood pressure is 138/77, respiratory rate is 18, heart rate is 71, O2 saturations on room air 97%, temperature is 36.8 Celsius. MEDICATIONS AT DISCHARGE: Please see the EMR. DISCHARGE INSTRUCTIONS: 1. Follow up with Dr. Wood. 2. If she develops any fever, chills, nausea, vomiting, and abdominal pain, to return to the ER. TIME SPENT: Greater than 30 minutes discharging and coordinating care. Copy requested to: Dr. Olivo /[id number]/MODL
[2016-10-20] MEDS: morphINE SR 15 MG TAB PO SCH (13:55)
== END 2016-10-20 16:04 | disposition home or self-care (01) | DRG 389 ==
LOC: EDUNIT# → OBSVTOIN 07:18 → F3E 15:06
PROVIDERS: ADMIT Hospitalist; ATTEND Hospitalist
DX: K56.60 Unspecified intestinal obstruction (principal); F11.20 Opioid dependence, uncomplicated; C56.9 Malignant neoplasm of unspecified ovary; C79.9 Secondary malignant neoplasm of unspecified site; G89.29 Other chronic pain
CPT/HCPCS: 82947-QW; 96374; 97162-GP; G8978-GP-CJ; G8979-GP-CI; J1170; J1650; J2405; J2550

== ENCOUNTER → 2016-11-06 | Day surgery (SDC) | payer OTHER, MEDICARE ==
[~2016-11-06] MED LIST: FLUMAZENIL 0.5 MG/5 ML MDV IVP ONE; MIDAZOLAM 2 MG/2 ML VIAL ONE; NALOXONE HCL 0.4 MG/ML INJ ONE; fentaNYL 100 MCG/2 ML INJ ONE
[2016-11-06 12:41] LABS: HEMATOCRIT 37.8 % (38.0-47.0)
[2016-11-06 12:50] LABS: PROTIME(PATIENT) 13.1 SEC (12.0-15.0)
[2016-11-06 12:51] LABS: APTT 29.8 SEC (23.0-38.0)
== END | disposition home or self-care (01) ==
LOC: FIMAGING 09:59
PROVIDERS: ATTEND Internal Medicine Hematology & Oncology
PROC: 02HV33Z Insertion of Infusion Device into Superior Vena Cava, Percutaneous Approach (ICD-10-PCS; principal; 2016-11-06 13:40)
PROC: 0JBC3ZX Excision of Pelvic Region Subcutaneous Tissue and Fascia, Percutaneous Approach, Diagnostic (ICD-10-PCS; principal; 2016-11-06 13:40)
DX: C78.6 Secondary malignant neoplasm of retroperitoneum and peritoneum (principal); C56.9 Malignant neoplasm of unspecified ovary; M81.0 Age-related osteoporosis without current pathological fracture; G62.9 Polyneuropathy, unspecified
CPT/HCPCS: 49180; 77001; 77012; 99152; C1751; J2250; J2310; J3010

== ENCOUNTER 2016-11-23 09:15 | Observation (INO) | payer OTHER, MEDICARE ==
--- NOTE | 2016-11-23 09:59 | CPEKG ---
Heart Rate: 79 RR Interval: 759 P-R Interval: 184 QRSD Interval: 86 QT Interval: 388 QTC Interval: 445 P [place]: 76 QRS [place]: 64 T Wave [place]: 67 EKG Severity - NORMAL ECG - EKG Impression: SINUS RHYTHM Electronically Signed By: Princess Gomez 23-Nov-2016 13:20:59
--- NOTE | 2016-11-23 10:25 | EDPHY ---
H & P Time Seen by Provider: 11/23/16 09:41 HPI/ROS: CHIEF COMPLAINT: Chest pain HISTORY OF PRESENT ILLNESS: 81-year-old female with a history of ovarian cancer presents with chest pain. She awoke at 6:30 a.m. this morning with chest pressure. The chest pressure was rated 9/10 and associated with shortness of breath. The pain has now subsided and is 3/10. The chest pain is slightly worsened with deep inspiration. No alleviating factors. No prior similar symptoms. She often has ongoing back discomfort, with tends to vary in location. The back pain is currently located between her shoulder blades and is moderate. The back pain increases with movement. REVIEW OF SYSTEMS: Constitutional: No fever, no chills Eyes: No visual changes ENT: No sore throat Respiratory: No cough Gastrointestinal: No nausea, no vomiting, no abdominal pain Genitourinary: No hematuria, no dysuria Musculoskeletal: No leg pain or swelling Skin: No rash Neurological: No headache, no weakness Psychiatric: No depression Past Medical/Surgical History: Ovarian cancer Chronic pain Social History: Smoking Status: Former smoker Physical Exam: General Appearance: Alert, pleasant Eyes: Pupils equal and round, no conjunctival pallor or injection ENT, Mouth: Mucous membranes moist Neck: Normal inspection Respiratory: anterior chest wall tenderness, Lungs are clear to auscultation Cardiovascular: Regular rate and rhythm Back: Periscapular tenderness bilaterally Gastrointestinal: Abdomen is soft, epigastric tenderness Neurological: A&O, nonfocal exam Skin: Warm and dry, no rash Extremities: Nontender, no pedal edema Psychiatric: Mood and affect normal Constitutional: Initial Vital Signs Temperature (C) 36.6 C 11/23/16 09:15 Heart Rate 88 11/23/16 09:15 Respiratory Rate 18 11/23/16 09:15 Blood Pressure 148/68 H 11/23/16 09:15 O2 Sat (%) 95 11/23/16 09:15 O2 Delivery Mode Room Air Allergies/Adverse Reactions: Iodinated Contrast Media - Oral and [Iodinated Contrast Media - IV Dye] Allergy (Verified 11/23/16 09:19) Dyspnea IODINE Allergy (Severe, Uncoded 09/01/14 11:40) Dyspnea DAISIES Allergy (Uncoded 09/01/14 11:40) Other-Enter Comments tape Allergy (Uncoded 12/10/14 11:40) Home Medications: Medication Instructions Recorded AMITRIPTYLINE HCL [Amitriptyline 25 mg PO HS 10/28/11 25 mg] Diazepam [Valium] 5 mg PO Q6 PRN 10/28/11 Cholecalciferol Vit D3 [Vitamin D3 1,000 units PO DAILY 04/10/14 (*)] Lorazepam [Ativan] 1 mg PO HS 04/10/14 Sennosides/Docusate Sodium 2 each PO HS 04/10/14 [Senokot-S] Acetaminophen [Tylenol 325mg (*)] 650 mg PO Q4 PRN #0 tab 01/20/16 DULoxetine [Cymbalta 30 MG (*)] 60 mg PO DAILY 04/24/16 Pregabalin [Lyrica 50mg (*)] 100 mg PO BID #120 cap 04/27/16 morphINE SR [Ms Contin/Oramorph 15 15 mg PO DAILY@13 10/18/16 mg (*)] Promethazine HCl [Phenergan 12.5mg 6.25 - 12.5 mg PO Q6 PRN #10 tablet 10/20/16 tab] Magnesium Hydroxide [Milk of 30 ml PO DAILY PRN 11/23/16 Magnesia] Ranitidine HCl [Zantac] 150 mg PO BIDMEAL 11/23/16 Medical Decision Making - Diagnostics EKG Interpretation: EKG interpreted by me reveals normal sinus rhythm, rate 79, no ST or T segment changes. Imaging: Chest x-ray reviewed by me reveals no acute disease. ED Course/Re-evaluation: This patient presents with acute chest pain, concerning for acute coronary syndrome. Stat EKG reveals no evidence of ischemia or dysrhythmia. This patient is a very difficult IV stick and multiple attempts were made, including ultrasound-guided peripheral IV, without success. Ultimately, an IV was placed in the right hand, but we were unable to draw blood from the site. A PICC line was ordered and on transfer to the floor, she has yet to get the PICC line. She tells that she always needs a PICC line when she is admitted to the hospital. She remained stable throughout her emergency department stay. The chest pain resolved. court monitor revealed normal sinus rhythm. The hospitalist service was consulted for admission. Differential Diagnosis: Differential diagnosis includes though it is not limited to pneumonia, pneumothorax, pulmonary embolism, aortic dissection, pericarditis, acute coronary syndrome. - Data Points Medications Given: Discontinued Medications Pregabalin (Lyrica) 100 mg PO EDNOW ONE Stop: 11/23/16 12:37 Last Admin: 11/23/16 13:24 Dose: 100 mg Departure - Departure Disposition: [facility] Inpatient Acute Clinical Impression: Chest pain Qualifiers: Chest pain type: precordial pain Qualified Code(s): R07.2 - Precordial pain Condition: Good
[2016-11-23] MEDS ORDERED: ALTEPLASE 2 MG VIAL IVP PRN (12:19)
[2016-11-23] MEDS ORDERED: PREGABALIN 100 MG CAP PO ONE (12:36)
[2016-11-23] MEDS: DULoxetine 60 MG CAP PO SCH (13:24)
[2016-11-23 14:16] LABS: ANION GAP 15 mEq/L (8-16); CARBON DIOXIDE 20 mEq/l (22-31); CHLORIDE 104 mEq/L (97-110); CREATININE 0.7 mg/dL (0.6-1.0); GLOMERULAR FILTRATION RATE > 60; GLUCOSE 120 mg/dL (70-100); POTASSIUM 4.4 mEq/L (3.5-5.2); SODIUM 139 mEq/L (134-144)
[2016-11-23 14:27] LABS: TROPONIN I < 0.012 ng/mL (0-0.034)
[2016-11-23] MEDS ORDERED: ONDANSETRON DISINTEGRATING 4 MG TAB PO PRN (16:31)
[2016-11-23] MEDS ORDERED: NITROGLYCERIN 0.4 MG BTL SL PRN (16:31)
[2016-11-23] MEDS ORDERED: ACETAMINOPHEN 325 MG TAB PO PRN ×2 (16:31→16:32)
[2016-11-23] MEDS ORDERED: MAGNESIUM HYDROXIDE 30 ML UDCUP PO PRN (16:32)
[2016-11-23] MEDS ORDERED: DIAZEPAM 5 MG TAB PO PRN (16:32)
[2016-11-23 16:44] LABS: % IMMATURE GRANULYOCYTES 0.2 % (0.0-1.1); ABSOLUTE IMMATURE GRANULOCYTES 0.01 10^3/uL (0.00-0.10); ADD DIFF? NO; ADD MORPH? NO; ADD SCAN? NO; ATYPICAL LYMPHOCYTE FLAG 10 (0-99); FRAGMENT RBC FLAG 0 (0-99); HEMATOCRIT 34.9 % (38.0-47.0); HEMOGLOBIN 11.6 g/dL (12.6-16.3); LEFT SHIFT FLG 0 (0-99); LIPEMIA HEMOLYSIS FLAG 80 (0-99); MEAN CELL HEMOGLOBIN 28.8 pg (27.9-34.1); MEAN CELL HEMOGLOBIN CONCENTR. 33.2 g/dL (32.4-36.7); MEAN CELL VOLUME 86.6 fL (81.5-99.8); MEAN PLATELET VOLUME 11.8 fL (8.7-11.7); PLATELET CLUMPS FLAG 0 (0-99); PLATELET COUNT 71 10^3/uL (150-400); RED BLOOD CELL COUNT 4.03 10^6/uL (4.18-5.33); RED CELL DISTRIBUTION WIDTH 14.1 % (11.5-15.2)
--- NOTE | 2016-11-23 16:54 | CPEKG ---
Heart Rate: 72 RR Interval: 833 P-R Interval: 204 QRSD Interval: 86 QT Interval: 408 QTC Interval: 447 P [place]: 78 QRS [place]: 69 T Wave [place]: 58 EKG Severity - NORMAL ECG - EKG Impression: SINUS RHYTHM Electronically Signed By: German Cheek 24-Nov-2016 10:06:12
--- NOTE | 2016-11-23 18:14 | GHP ---
DATE OF ADMISSION: 11/23/2016 CHIEF COMPLAINT: Chest pain. HISTORY OF PRESENT ILLNESS: This is an 81-year-old female, who has a past medical history of ovaria n cancer with recent recurrence, as well as prior small bowel obstructions and chronic GERD, who pre sents with abrupt onset of chest pain waking her from sleep this morning. She notes she had gone to bed yesterday in her usual state of health but was woken this morning when she developed a deep bur joaquin chest pain that radiated across her entire chest. She did have some associated shortness of br eath and anxiety. She is not really clear how long it lasted. She says "long enough to come to the hospital." She notes that on arrival in the hospital it had already improved and, after taking her usual home medications which include morphine and Lyrica, it had resolved completely. There has be en no recurrence since then. She has never had similar symptoms in the past. She does have chronic lower extremity pain secondary to nerve damage that has been result of treatment for her ovarian ca ncer. She also has some intermittent back pain which has been significantly worse in this last week . She notes she also does have chronic GERD and takes Zantac twice a day but states that this sensa tion she had this morning was different from her usual GERD pain. She has had a stress test in the past and notes it was normal, but she thinks it was many years ago. She does generally walk with a cane. However, she felt very strongly that she would be able to exercise vigorously on a treadmill and requested that she be allowed to try a treadmill stress test before having the Lexiscan, which s he has had in the past which she did not like. She is willing to undergo the Lexiscan if she is guillaume ble to exercise however. PAST MEDICAL HISTORY: 1. 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 It was very indolent initially. It is considered stage IV. She has undergone multiple int erventions including MATTHEW/BSO and omentectomy with at least 5 further surgical resections since then due to recurrence, most recently in 2007. She has also undergone radiation and was on Femara for 5 years. Given that the tumor has been more recently continuing to increase in size, she has been con sidered for a clinical trial but found out yesterday that she was not a candidate. She does have kn own mets to the bone, liver and peritoneal. 2. Chronic GERD. 3. Osteoporosis with compression fractures. 4. Lumbar stenosis. 5. Chronic pain with continuous narcotic use and dependence. 6. Chronic anemia. PAST SURGICAL HISTORY: 1. Ovarian surgeries as above. 2. Appendectomy. 3. L-spine surgery. FAMILY HISTORY: Father either of stroke or heart attack at age 62. She has a sister with hear t problems but she is uncertain of the details. SOCIAL HISTORY: Patient is nonsmoker, drink or drug user. She is and is accompanied here b y her , daughter and son. REVIEW OF SYSTEMS: 10-point review of systems obtained and is negative except as per HPI. MEDICATIONS: Include: 1. MS Contin. 2. Senna. 3. Ranitidine. 4. Phenergan. 5. Lyrica. 6. Milk of magnesia. 7. Ativan. 8. Valium. 9. Cymbalta. 10. Vitamin D3. 11. Tylenol. 12. Amitriptyline. ALLERGIES: Include iodine contrast. PHYSICAL EXAMINATION: GENERAL: The patient is awake and alert. She appears much younger than stat ed age. She is in no acute distress. VITAL SIGNS: Reviewed. Blood pressure 138/77, heart rate 87, respiratory rate 16, O2 sats 94% on room air. Temperature is 36.4. HEENT: Eyes are anicteric. Or opharynx is clear. HEART: Sounds are regular without murmurs, rubs, or gallops. LUNGS: Clear to au scultation bilaterally. ABDOMEN: Soft, nontender. EXTREMITIES: Without clubbing, cyanosis, or rebeka a. SKIN: Warm, dry, well perfused. NEUROLOGIC: The patient is oriented and appropriate, quite plea kale and interactive. CLINICAL DATA: Labs reviewed. Significant for white blood cell count of 5.36, hematocrit of 34.9, platelets of 71. Chemistry is remarkable for glucose of 120. Troponin is less than 0.012. ProBNP i s 152. EKG personally reviewed and interpreted shows sinus rhythm. There are no ischemic changes noted. Chest x-ray personally reviewed and interpreted shows findings suggestive of airways disease and a s table mild elevation of her right hemidiaphragm, question of bibasilar atelectasis. ASSESSMENT AND PLAN: This is an 81-year-old female with past medical history of metastatic ovarian cancer who presents with chest pain. 1. Chest pain. Initial workup so far negative for acute coronary syndrome, though this remains con cerning. She will be admitted. She will be observed overnight with serial troponins, serial EKGs, and telemetry monitoring. Should her initial workup remained negative, a stress test will be perfor med in the morning. Again, she is requesting to attempt an exercise nuclear stress despite the fact that she typically uses a cane. She does understand that this may not be possible. 2. Metastatic ovarian cancer. She is followed by Dr. Wood. She is currently in the process of determining whether she is a candidate for any further chemotherapeutic agents. She does have a apple y rare subtype of ovarian cancer and was recently found to be not a candidate for a clinical trial, which has led to a bit more stress. If she has a longer hospital stay than expected, Oncology will need to be consulted. 3. Anemia. This is chronic and at baseline. Will trend overnight. 4. Thrombocytopenia, also chronic and slightly lower than her usual baseline, related to chemothera py and her underlying cancer. 5. Chronic pain with continuous opiate use and dependency. Will continue her outpatient regimen. Her pain is currently quite well controlled. 6. Disposition. Observation status. The patient likely will need less than 48-hour stay for evalu ation and management of above. Care plan was reviewed with the ER physician, including plans for st ress test in the morning. Further history is obtained from patient's daughter, son and pres ent at bedside. /[id number]/MODL
[2016-11-23] MEDS: FAMOTIDINE 20 MG TAB PO SCH (18:45)
[2016-11-23] MEDS ORDERED: AMITRIPTYLINE HCL 25 MG TAB PO SCH (21:00)
[2016-11-23] MEDS ORDERED: SENNOSIDES/DOCUSATE SODIUM TAB PO SCH (21:00)
[2016-11-23] MEDS ORDERED: LORazepam 1 MG TAB PO SCH (21:00)
[2016-11-23] MEDS: PREGABALIN 100 MG CAP PO SCH (21:05)
[2016-11-24 05:21] LABS: % IMMATURE GRANULYOCYTES 0.2 % (0.0-1.1); ABSOLUTE IMMATURE GRANULOCYTES 0.01 10^3/uL (0.00-0.10); ADD DIFF? NO; ADD MORPH? NO; ADD SCAN? NO; ATYPICAL LYMPHOCYTE FLAG 20 (0-99); FRAGMENT RBC FLAG 0 (0-99); HEMATOCRIT 33.4 % (38.0-47.0); HEMOGLOBIN 10.9 g/dL (12.6-16.3); LEFT SHIFT FLG 0 (0-99); LIPEMIA HEMOLYSIS FLAG 80 (0-99); MEAN CELL HEMOGLOBIN 28.5 pg (27.9-34.1); MEAN CELL HEMOGLOBIN CONCENTR. 32.6 g/dL (32.4-36.7); MEAN CELL VOLUME 87.4 fL (81.5-99.8); MEAN PLATELET VOLUME 12.7 fL (8.7-11.7); PLATELET CLUMPS FLAG 0 (0-99); PLATELET COUNT 143 10^3/uL (150-400); RED BLOOD CELL COUNT 3.82 10^6/uL (4.18-5.33); RED CELL DISTRIBUTION WIDTH 14.4 % (11.5-15.2)
[2016-11-24] MEDS: FAMOTIDINE 20 MG TAB PO SCH (07:57)
[2016-11-24] MEDS: DULoxetine 60 MG CAP PO SCH (07:57)
[2016-11-24 08:05] VITALS: O2SAT 96
[2016-11-24] MEDS: PREGABALIN 100 MG CAP PO SCH (08:05)
--- NOTE | 2016-11-24 08:20 | CPEKG ---
Heart Rate: 80 RR Interval: 750 P-R Interval: 192 QRSD Interval: 90 QT Interval: 384 QTC Interval: 443 P [place]: 72 QRS [place]: 56 T Wave [place]: 54 EKG Severity - NORMAL ECG - EKG Impression: SINUS RHYTHM Electronically Signed By: German Cheek 24-Nov-2016 10:06:07
[2016-11-24] MEDS ORDERED: morphINE SR 15 MG TAB PO SCH ×2 (09:00→13:00)
[2016-11-24] MEDS ORDERED: CHOLECALCIFEROL VIT D3 1,000 UNITS TAB PO SCH (09:00)
[2016-11-24] MEDS ORDERED: ASPIRIN 325 MG TAB PO SCH (09:00)
[2016-11-24] MEDS ORDERED: DULoxetine 30 MG CAP PO SCH (09:00)
[2016-11-24] MEDS ORDERED: REGADENOSON 0.4 MG/5 ML SYR IVP ONE (10:50)
--- NOTE | 2016-11-24 12:00 | CPR ---
DATE OF PROCEDURE: 11/24/2016 INDICATION FOR PROCEDURE: An 81-year-old female with no known cardiac history who awoke yesterday m orning with acute onset severe chest discomfort that resolved by the time she got to the hospital. Her troponins have been negative x3 with a baseline brain natriuretic peptide of 152. Her serial 12 -lead EKGs have shown normal sinus rhythm without acute ischemic change. We are conducting nuclear stress testing for further risk stratification. PROCEDURE: Informed consent was obtained. Baseline heart rate and blood pressure along with 12-carlos d EKG were obtained in the supine position. The patient requested to do the test via Eric protocol . She has noticeable gait instability upon walking onto the treadmill, however did well in stage I up until about the 2-1/2 minute darcy, where she started losing footing, therefore was changed to Wagner iscan protocol. She underwent Lexiscan stress via standard protocol and was observed in recovery fo r 5 minutes. FINDINGS: Baseline heart rate was 80 baseline, blood pressure was 132/74, baseline 12-lead EKG show s normal sinus rhythm with normal QRS axis and intervals. As stated above, the patient started out via Eric protocol and ultimately reached a heart rate of 122 beats per minute before the test was s topped due to poor balance and gait stability. She then received standard 0.4 mg Lexiscan injection by IV with a secondary baseline heart rate of 109 and blood pressure 132/72 mmHg. Her heart rate p eaked at 116 beats per minute with a blood pressure of 122/78 that was stable throughout the duratio n of the test. At no time did she ever complain of recurrent chest discomfort. In recovery, her he art rate down-trended linearly to 104 beats per minute, with a final blood pressure of 122/68 mmHg. Oxygen saturation was greater than 90% throughout the test. There were no ischemic changes seen at any point during the test. IMPRESSION: 1. Unremarkable stress test, during the treadmill portion or Lexiscan portion. 2. Atypical chest pain. 3. Severe gait instability. 4. Family history of undisclosed cardiac issues in her father and sister. 5. Unknown coronary artery disease status. 6. Multiple comorbidities. PLAN: Await results of nuclear imaging. If negative, no further cardiac testing is warranted. If a perfusion defect is seen, we will consider diagnostic coronary angiography. /[id number]/MODL
[2016-11-24 13:00] VITALS: BP 146/58; PULSE 85; RESP 15; TEMP 97.2
--- NOTE | 2016-11-24 19:56 | GDS ---
DISCHARGE DIAGNOSES: 1. Atypical chest pain. 2. Gastroesophageal reflux disease. 3. Chronic anemia. 4. Chronic thrombocytopenia. 5. Chronic pain. CONSULTANTS: None. PROCEDURES: Myocardial perfusion scan, November 24, 2016, showed a high left ventricular ejection fract ion of 93%. No focal wall motion abnormalities and no evidence of ischemia or infarct. HISTORY: For details, please see dictated History and Physical dated November 23, 2016. In brief, the patient is an 81-year-old female with a history of metastatic ovarian cancer with a recent recurrenc e, as well as a prior small bowel obstructions and chronic reflux, who presented to the emergency de partment after awakening with burning chest pain. She was admitted to the hospital for further belkis gement. HOSPITAL COURSE: The patient was admitted to the observation unit. Her initial EKG was nonischemic . Her troponins were negative x3. She had no shortness of breath, hypoxemia, tachycardia, or pleur itic symptoms. The following day, her chest pain had completely resolved and she underwent nuclear medicine stress testing which was negative for ischemia. With her burning type symptoms, I suspect this may be secondary to acid reflux. The patient is discharged home on omeprazole and should follo w up with her primary care physician. She will continue all other outpatient medications as prescri bed. FOLLOWUP: 1. Dr. Payne, primary care provider. 2. Dr. Wood, Oncology. /[id number]/MODL
== END 2016-11-24 13:15 | disposition home or self-care (01) ==
LOC: F1N 15:03
PROVIDERS: ADMIT Internal Medicine; ATTEND Internal Medicine
PROC: 02HV33Z Insertion of Infusion Device into Superior Vena Cava, Percutaneous Approach (ICD-10-PCS; principal; 2016-11-23)
DX: R07.9 Chest pain, unspecified (principal); K21.9 Gastro-esophageal reflux disease without esophagitis; Z85.43 Personal history of malignant neoplasm of ovary; C79.51 Secondary malignant neoplasm of bone; C78.7 Secondary malignant neoplasm of liver and intrahepatic bile duct; C78.6 Secondary malignant neoplasm of retroperitoneum and peritoneum; G89.29 Other chronic pain; F11.20 Opioid dependence, uncomplicated; D53.9 Nutritional anemia, unspecified; M81.0 Age-related osteoporosis without current pathological fracture
CPT/HCPCS: 36569; 71020; 77001; 78451; 93005; 93017; 99285; A9500; C1751; G0378; J2785

== ENCOUNTER → 2016-12-04 | Outpatient (CLI) | payer OTHER, MEDICARE | LOC: FIMAGING 08:15 | PROVIDERS: ATTEND Internal Medicine | DX: R07.81 Pleurodynia (principal) ==

== ENCOUNTER → 2016-12-06 | Outpatient (CLI) | payer OTHER, MEDICARE | LOC: FIMAGING 09:48 | PROVIDERS: ATTEND Internal Medicine | DX: M54.9 Dorsalgia, unspecified (principal); M85.80 Other specified disorders of bone density and structure, unspecified site ==

== ENCOUNTER → 2016-12-10 | Outpatient (CLI) | payer OTHER, MEDICARE | LOC: FIMAGING 14:13 | PROVIDERS: ATTEND Internal Medicine | DX: M48.54XA Collapsed vertebra, not elsewhere classified, thoracic region, initial encounter for fracture (principal) ==

== ENCOUNTER 2016-12-11 13:08 | Day surgery (SDC) | payer MEDICARE ==
[2016-12-11] MEDS ORDERED: DEXMEDETOMIDINE HCL 200 MCG in NS 50 ML IV SCH (14:00)
[2016-12-11] MEDS ORDERED: DEXAMETHASONE 10 MG/ML VIAL ONE (14:51)
[2016-12-11 14:56] LABS: % IMMATURE GRANULYOCYTES 0.4 % (0.0-1.1); ABSOLUTE IMMATURE GRANULOCYTES 0.02 10^3/uL (0.00-0.10); ADD DIFF? NO; ADD MORPH? NO; ADD SCAN? NO; ATYPICAL LYMPHOCYTE FLAG 0 (0-99); FRAGMENT RBC FLAG 0 (0-99); HEMATOCRIT 34.8 % (38.0-47.0); HEMOGLOBIN 11.7 g/dL (12.6-16.3); LEFT SHIFT FLG 0 (0-99); LIPEMIA HEMOLYSIS FLAG 80 (0-99); MEAN CELL HEMOGLOBIN 29.2 pg (27.9-34.1); MEAN CELL HEMOGLOBIN CONCENTR. 33.6 g/dL (32.4-36.7); MEAN CELL VOLUME 86.8 fL (81.5-99.8); MEAN PLATELET VOLUME 13.2 fL (8.7-11.7); PLATELET CLUMPS FLAG 10 (0-99); PLATELET COUNT 122 10^3/uL (150-400); RED BLOOD CELL COUNT 4.01 10^6/uL (4.18-5.33); RED CELL DISTRIBUTION WIDTH 14.6 % (11.5-15.2)
[2016-12-11 15:06] LABS: INR 1.05 (0.83-1.16); PROTIME(PATIENT) 13.6 SEC (12.0-15.0)
[2016-12-11 15:07] LABS: APTT 31.3 SEC (23.0-38.0)
[2016-12-11 15:15] LABS: CREATININE 0.8 mg/dL (0.6-1.0); GLOMERULAR FILTRATION RATE > 60
[2016-12-11] MEDS ORDERED: MIDAZOLAM 2 MG/2 ML VIAL ONE (15:30)
[2016-12-11] MEDS ORDERED: fentaNYL 100 MCG/2 ML INJ ONE (15:30)
[2016-12-11] MEDS ORDERED: ONDANSETRON 4 MG/2 ML VIAL IVP PRN (16:51)
[2016-12-11] MEDS ORDERED: ONDANSETRON DISINTEGRATING 4 MG TAB PO PRN (16:51)
[2016-12-11] MEDS ORDERED: morphINE SR 15 MG TAB PO ONE (17:00)
[2016-12-11] MEDS ORDERED: HYDROmorphONE/DILAUDID 1 MG/ML SYR ONE (17:12)
[2016-12-12] MEDS ORDERED: BUPIVACAINE 0.5% 30 ML SDV ONE (08:08)
[2016-12-12] MEDS ORDERED: LIDOCAINE 1% 30 ML SDV ONE (08:09)
== END 2016-12-11 19:55 | disposition home or self-care (01) ==
LOC: FIMAGING 13:08
PROVIDERS: ATTEND Radiology Diagnostic Radiology
PROC: 0PU43JZ Supplement Thoracic Vertebra with Synthetic Substitute, Percutaneous Approach (ICD-10-PCS; principal; 2016-12-11 16:20)
DX: M48.54XA Collapsed vertebra, not elsewhere classified, thoracic region, initial encounter for fracture (principal)
CPT/HCPCS: J1170; J2250; J3010

== ENCOUNTER → 2016-12-13 | Outpatient (CLI) | payer OTHER, MEDICARE ==
[~2016-12-13] MED LIST changes: -FLUMAZENIL 0.5 MG/5 ML MDV IVP ONE; +IOPAMIDOL (ISOVUE-M 300) 15 ML VIAL IV ONE; -MIDAZOLAM 2 MG/2 ML VIAL ONE; -NALOXONE HCL 0.4 MG/ML INJ ONE; +TRIAMCINOLONE ACETONIDE 200 MG/5 ML MDV IM ONE; -fentaNYL 100 MCG/2 ML INJ ONE
== END ==
LOC: FIMAGING 12:11
PROVIDERS: ATTEND Radiology Diagnostic Radiology
PROC: 3E0S3GC Introduction of Other Therapeutic Substance into Epidural Space, Percutaneous Approach (ICD-10-PCS; principal; 2016-12-13)
DX: M54.6 Pain in thoracic spine (principal)
CPT/HCPCS: 62281; 72128; 99152; J3301; Q9967

== ENCOUNTER 2017-06-18 18:52 | Inpatient (IN) | payer OTHER, MEDICARE ==
[2017-06-18] MEDS ORDERED: NS 1,000 ML IV ONE (19:14)
[2017-06-18] MEDS ORDERED: ONDANSETRON 4 MG/2 ML VIAL IVP ONE (19:14)
--- NOTE | 2017-06-18 19:17 | EDPHY ---
H & P Time Seen by Provider: 06/18/17 19:03 HPI/ROS: CHIEF COMPLAINT: Abdominal pain and nausea HISTORY OF PRESENT ILLNESS: 81-year-old woman has a history of ovarian cancer and multiple bowel obstructions. She presents with abdominal pain and distention nausea and vomiting today since 1:00 p.m.. She feels like this is identical to previous bowel obstructions. Worse with oral intake. Does not radiate. Symptoms are severe. REVIEW OF SYSTEMS: Eye: no change in vision ENT: no sore throat Cardiac: no chest pain or syncope Pulmonary: Feels like she can't breathe. Abdomen: HPI Musculoskeletal: no back pain Skin: no rash Neuro: no headache Constitutional: no fever : no urinary symptoms A comprehensive 10 point review of systems is otherwise negative aside from elements mentioned in the history of present illness. PAST MEDICAL HISTORY: Ovarian cancer, 7 surgeries at [facility], chemotherapy , depression, back surgery, bowel obstructions. Social history: Nonsmoker General Appearance: Alert and conversant, cooperative. Eyes: No scleral icterus. ENT, Mouth: Dry mucous membranes. Respiratory: Normal respiratory effort, breath sounds equal, lungs are clear to auscultation. Cardiovascular: Regular rate and rhythm. Gastrointestinal: Mild distention with epigastric abdominal tenderness but no rebound or guarding. Bowel sounds are decreased. Neurological: Alert and oriented x3. Normally conversant. Face symmetric, normal movement and sensation in all extremities. Skin: Warm and dry, no rashes. Musculoskeletal: No peripheral edema and no joint swelling. Psychiatric: Not agitated. Emergency Department course/MDM: Morphine 6 mg IV for pain is flagged as possible allergy. However she takes MS Contin and took 3 doses today without any problem. Noncontrast CT scanning, Zofran 4 mg IV for nausea. 1955: CT scan personally reviewed shows bowel obstruction. Plan for NG tube. The patient says that Dr. Tan Olivo did operate 1 time on her "a long time ago ", will have his service consult and admission to hospitalist. She has recently had multiple bowel obstructions all of which resolved with conservative therapy nasogastric suction and IV fluids. Does not have peritoneal signs currently. 1958: Discussed with Carlos Olivo will consult. 2015: CT reviewed with radiology, SBO with transition in [place]. I think the patient's shortness of breath is more likely due to abdominal distension. Chest x-ray personally interpreted shows vertebroplasty but no pulmonary edema or pulmonary infiltrates. I think pulmonary embolism would be less likely. Smoking Status: Former smoker Constitutional: Initial Vital Signs Temperature (C) 36.6 C 06/18/17 18:56 Heart Rate 86 06/18/17 18:56 Respiratory Rate 20 06/18/17 18:56 Blood Pressure 144/107 H 06/18/17 18:56 O2 Sat (%) 90 L 06/18/17 18:56 O2 Delivery Mode Nasal Cannula O2 (L/minute) 3 Allergies/Adverse Reactions: hydromorphone Allergy (Verified 06/18/17 18:54) Rash Iodinated Contrast- Oral and IV Dye [Iodinated Contrast Media - IV Dye] Allergy (Verified 06/18/17 18:54) Dyspnea IODINE Allergy (Severe, Uncoded 12/10/16 16:49) Dyspnea DAISIES Allergy (Uncoded 12/10/16 16:49) Other-Enter Comments tape Allergy (Uncoded 12/10/16 16:49) Home Medications: Medication Instructions Recorded AMITRIPTYLINE HCL [Amitriptyline 25 mg PO HS 10/28/11 25 mg] Diazepam [Valium] 5 mg PO Q6 PRN 10/28/11 Cholecalciferol Vit D3 [Vitamin D3 1,000 units PO DAILY 04/10/14 (*)] LORazepam [Ativan] 1 mg PO HS 04/10/14 Sennosides/Docusate Sodium 2 each PO BID 04/10/14 [Senokot-S] Acetaminophen [Tylenol 325mg (*)] 650 mg PO Q4 PRN #0 tab 01/20/16 DULoxetine [Cymbalta 30 MG (*)] 30 mg PO DAILY 04/24/16 Pregabalin [Lyrica 50mg (*)] 100 mg PO BID #120 cap 04/27/16 Promethazine HCl [Phenergan 12.5mg 6.25 - 12.5 mg PO Q6 PRN #10 tablet 10/20/16 tab] Magnesium Hydroxide [Milk of 30 ml PO DAILY PRN 11/23/16 Magnesia] Ranitidine HCl [Zantac] 150 mg PO DAILY PRN 11/23/16 Omeprazole 20 mg PO DAILY #30 tablet. 11/24/16 Ondansetron Odt [Zofran Odt 4 mg 4 - 8 mg PO Q4 PRN 06/18/17 (*)] morphINE SR [MS Contin/Oramorph SR 30 mg PO Q12H 06/18/17 30 mg (*)] Medical Decision Making Differential Diagnosis: Differential considered including but not limited to bowel obstruction, intestinal perforation, reflux disease, pancreatitis or hepatitis. Consult/Admit Bed Type: [place] [id number] - Data Points Laboratory Results: Laboratory Results 06/18/17 19:15 06/18/17 19:15 06/18/17 06/18/17 19:15 19:15 WBC 10.19 10^3/uL H 10^3/uL (3.80-9.50) RBC 5.39 10^6/uL H 10^6/uL (4.18-5.33) Hgb 14.9 g/dL g/dL (12.6-16.3) Hct 45.5 % % (38.0-47.0) MCV 84.4 fL fL (81.5-99.8) MCH 27.6 pg L pg (27.9-34.1) MCHC 32.7 g/dL g/dL (32.4-36.7) RDW 15.5 % H % (11.5-15.2) Plt Count 179 10^3/uL 10^3/uL (150-400) MPV 12.2 fL H fL (8.7-11.7) Neut % (Auto) 81.1 % H % (39.3-74.2) Lymph % (Auto) 11.2 % L % (15.0-45.0) [place] % (Auto) 5.9 % % (4.5-13.0) Eos % (Auto) 1.1 % % (0.6-7.6) Baso % (Auto) 0.4 % % (0.3-1.7) Nucleat RBC Rel Count 0.0 % % (0.0-0.2) Absolute Neuts (auto) 8.27 10^3/uL H 10^3/uL (1.70-6.50) Absolute Lymphs (auto) 1.14 10^3/uL 10^3/uL (1.00-3.00) Absolute Monos (auto) 0.60 10^3/uL 10^3/uL (0.30-0.80) Absolute Eos (auto) 0.11 10^3/uL 10^3/uL (0.03-0.40) Absolute Basos (auto) 0.04 10^3/uL 10^3/uL (0.02-0.10) Absolute Nucleated RBC 0.00 10^3/uL 10^3/uL (0-0.01) Immature Gran % 0.3 % % (0.0-1.1) Immature Gran # 0.03 10^3/uL 10^3/uL (0.00-0.10) Sodium 138 mEq/L mEq/L (134-144) Potassium 4.5 mEq/L mEq/L (3.5-5.2) Chloride 98 mEq/L mEq/L (97-110) Carbon Dioxide 26 mEq/l mEq/l (22-31) Anion Gap 14 mEq/L mEq/L (8-16) BUN 12 mg/dL mg/dL (7-23) Creatinine 0.7 mg/dL mg/dL (0.6-1.0) Estimated GFR > 60 Glucose 134 mg/dL H mg/dL (70-100) Calcium 10.2 mg/dL mg/dL (8.5-10.4) Total Bilirubin 1.0 mg/dL mg/dL (0.1-1.4) Conjugated Bilirubin 0.4 mg/dL mg/dL (0.0-0.5) Unconjugated Bilirubin 0.6 mg/dL mg/dL (0.0-1.1) AST 25 IU/L IU/L (14-46) ALT 29 IU/L IU/L (9-52) Alkaline Phosphatase 86 IU/L IU/L (38-126) Total Protein 8.3 g/dL H g/dL (6.3-8.2) Albumin 4.7 g/dL g/dL (3.5-5.0) Lipase 28 IU/L IU/L (23-300) Medications Given: Discontinued Medications Sodium Chloride (Ns) 1,000 mls @ 0 mls/hr IV EDNOW ONE; Wide Open PRN Reason: Protocol Stop: 06/18/17 19:15 Last Admin: 06/18/17 19:21 Dose: 1,000 mls Morphine Sulfate (Morphine) 6 mg IVP EDNOW ONE Stop: 06/18/17 19:15 Last Admin: 06/18/17 20:17 Dose: 6 mg Morphine Sulfate (Morphine) 6 mg IVP EDNOW ONE Stop: 06/18/17 19:58 Last Admin: 06/18/17 20:19 Dose: Not Given Ondansetron HCl (Zofran) 4 mg IVP EDNOW ONE Stop: 06/18/17 19:15 Last Admin: 06/18/17 19:22 Dose: 4 mg Departure - Departure Disposition: [facility] Inpatient Acute Clinical Impression: Small bowel obstruction Condition: Good
[2017-06-18 19:32] LABS: % IMMATURE GRANULYOCYTES 0.3 % (0.0-1.1); ABSOLUTE IMMATURE GRANULOCYTES 0.03 10^3/uL (0.00-0.10); ADD DIFF? NO; ADD MORPH? NO; ADD SCAN? NO; ATYPICAL LYMPHOCYTE FLAG 0 (0-99); FRAGMENT RBC FLAG 0 (0-99); HEMATOCRIT 45.5 % (38.0-47.0); HEMOGLOBIN 14.9 g/dL (12.6-16.3); LEFT SHIFT FLG 0 (0-99); LIPEMIA HEMOLYSIS FLAG 80 (0-99); MEAN CELL HEMOGLOBIN 27.6 pg (27.9-34.1); MEAN CELL HEMOGLOBIN CONCENTR. 32.7 g/dL (32.4-36.7); MEAN CELL VOLUME 84.4 fL (81.5-99.8); MEAN PLATELET VOLUME 12.2 fL (8.7-11.7); PLATELET CLUMPS FLAG 0 (0-99); PLATELET COUNT 179 10^3/uL (150-400); RED BLOOD CELL COUNT 5.39 10^6/uL (4.18-5.33); RED CELL DISTRIBUTION WIDTH 15.5 % (11.5-15.2)
[2017-06-18 19:45] LABS: ALANINE AMINOTRANSFERASE 29 IU/L (9-52); ALBUMIN 4.7 g/dL (3.5-5.0); ALKALINE PHOSPHATASE 86 IU/L (38-126); ANION GAP 14 mEq/L (8-16); ASPARTATE AMINOTRANSFERASE 25 IU/L (14-46); BILIRUBIN-CONJUGATED 0.4 mg/dL (0.0-0.5); BILIRUBIN-UNCONJUGATED 0.6 mg/dL (0.0-1.1); CALCIUM 10.2 mg/dL (8.5-10.4); CARBON DIOXIDE 26 mEq/l (22-31); CHLORIDE 98 mEq/L (97-110); CREATININE 0.7 mg/dL (0.6-1.0); GLOMERULAR FILTRATION RATE > 60; GLUCOSE 134 mg/dL (70-100); POTASSIUM 4.5 mEq/L (3.5-5.2); SODIUM 138 mEq/L (134-144); TOTAL PROTEIN 8.3 g/dL (6.3-8.2)
[2017-06-18] MEDS ORDERED: ONDANSETRON DISINTEGRATING 4 MG TAB PO PRN (20:19)
[2017-06-18] MEDS ORDERED: ACETAMINOPHEN 325 MG TAB PO PRN (20:19)
[2017-06-18] MEDS ORDERED: ONDANSETRON 4 MG/2 ML VIAL IVP PRN (20:19)
[2017-06-18] MEDS ORDERED: PROMETHAZINE HCL 25 MG/ML INJ ONE (20:47)
[2017-06-18] MEDS ORDERED: PROMETHAZINE HCL 25 MG/ML INJ IM ONE (20:50)
[2017-06-18] MEDS ORDERED: NS 1,000 ML IV SCH (21:30)
[2017-06-18] MEDS: D5W NS 1,000 ML IV SCH (21:31)
--- NOTE | 2017-06-18 22:01 | GHP ---
[f rep st] HISTORY AND PHYSICAL DATE OF ADMISSION: 06/18/2017 CHIEF COMPLAINT: Bowel obstruction, metastatic ovarian cancer. HISTORY OF PRESENT ILLNESS: An 81-year-old female with history of metastatic ovarian cancer. She presented with sudden onset of epigastric abdominal pain, distention and nausea today at 1:00 p.m. This feels identical to her prior bowel obstructions. She has had several in the past, most recently in September 2016. These have all resolved with supportive care and NG tube. The pain is worse with oral intake. She denies any fevers, chills, or sweats. She had a small BM today with little flatus. She is chronically on MS Contin and amitriptyline. She is currently getting immunotherapy per Dr. Wood for her ovarian cancer. REVIEW OF SYSTEMS: I completed a 10-point review of systems, negative except as noted in HPI. PAST MEDICAL HISTORY: Ovarian cancer diagnosed in 1978, status post MATTHEW/BSO, omentum ectomy with 5 surgical revisions. Also received XRT and Femara. PAST SURGICAL HISTORY: Those as stated above, as well as back surgery. SOCIAL HISTORY: Lives in [place] with her and son. No alcohol, tobacco , or illicits. She is accompanied by her daughter. HOME MEDICATIONS: Promethazine p.r.n., Zofran p.r.n., duloxetine 30 mg daily, vitamin D3, Tylenol p.r.n., amitriptyline 25 mg q.h.s., pregabalin 100 mg b.i.d. , omeprazole 20 mg daily, milk of Mag, Ativan at night, diazepam as needed, senna, ranitidine, MS Contin 30 mg b.i.d., oxycodone p.r.n. has not been taking. ALLERGIES: Hydromorphone, iodine, daisies, tape. PHYSICAL EXAMINATION: VITAL SIGNS: Temperature is 36.4, blood pressure 140/70 , heart rate in 70s, respirations 96% on room air. GENERAL: Ill appearing, tired. HEENT: PERRLA. EOMI. NG in place. Dry mucous membranes. CV: Regular rate and rhythm. No murmurs, gallops, or rubs. LUNGS: Clear to auscultation bilaterally. ABDOMEN: Mildly distended. Moderate epigastric tenderness, but no rebound or guarding. Hyperactive bowel sounds throughout. : No suprapubic tenderness. No Saenz. MUSCULOSKELETAL: Moving all 4 extremities. NERUO: 2-12 intact. PSYCH: Alert and oriented x3. Flat affect. LABS: WBC is 10, hemoglobin is 14, hematocrit 45, platelets 179, sodium 138, potassium 4.5, chloride 98, creatinine 0.7, glucose 134, calcium 10, phos 4, total bilirubin 1, AST 25, ALT 29, alkaline phosphatase 83, total protein 8.3, albumin 4.7, lipase 28. Chest x-ray, personally reviewed by me, no effusion or opacity. Lumbar hardware in place. Abdominal CT: Official radiology read pending, but per Dr. Graham has a right colonic full obstruction with transition point. ASSESSMENT AND PLAN: 1. Recurrent bowel obstruction: This is likely secondary to prior abdominal surgeries, along with chronic narcotic and amitriptyline. We will treat supportively now with NG tube, IV fluids, and p.r.n. antiemetics and opioids. We will try to limit the amount of opioids, as likely contributing. We will check a lactate. 2. Metastatic ovarian cancer: Followed by Dr. Wood, status post MATTHEW/BSO, omentum ectomy and 5 revisions. Also received XRT and Femara. 3. Leukocytosis: Mildly elevated, afebrile, likely secondary to dehydration. 4. Nausea and vomiting: Secondary to obstruction as stated above. Plan as stated above. 5. Chronic pain: This is likely contributing to her recurrent obstructions. Again, try to minimize pain medications and anticholinergics. 6. Gastroesophageal reflux disease: IV acid karl while n.p.o. 7. Osteoporosis: We will continue home medications once taking p.o. 8. Diet: N.p.o. 9. Deep vein thrombosis prophylaxis: Lovenox. 10. Disposition: The patient warrants inpatient admission given acute bowel obstruction requiring IV fluids, antiemetics, and surgical evaluation. /[id number]/MODL MTDD
[2017-06-18] MEDS: LORazepam 2 MG/ML INJ IVP PRN (23:18)
[2017-06-18] MEDS: PREGABALIN 100 MG CAP PO SCH (23:31)
[2017-06-19] MEDS: PROMETHAZINE HCL 25 MG/ML INJ IVP PRN ×2 (02:48→09:09)
[2017-06-19 05:05] LABS: HEMOGLOBIN 12.3 g/dL (12.6-16.3); MEAN CELL HEMOGLOBIN 27.6 pg (27.9-34.1); MEAN CELL HEMOGLOBIN CONCENTR. 32.4 g/dL (32.4-36.7); MEAN CELL VOLUME 85.2 fL (81.5-99.8); RED BLOOD CELL COUNT 4.46 10^6/uL (4.18-5.33); RED CELL DISTRIBUTION WIDTH 15.4 % (11.5-15.2)
[2017-06-19 05:15] LABS: ANION GAP 7 mEq/L (8-16); CALCIUM 8.4 mg/dL (8.5-10.4); CARBON DIOXIDE 26 mEq/l (22-31); CHLORIDE 103 mEq/L (97-110); CREATININE 0.7 mg/dL (0.6-1.0); GLOMERULAR FILTRATION RATE > 60; GLUCOSE 176 mg/dL (70-100); POTASSIUM 4.5 mEq/L (3.5-5.2); SODIUM 136 mEq/L (134-144)
[2017-06-19] MEDS: D5W NS 1,000 ML IV SCH ×2 (08:22→18:18)
[2017-06-19] MEDS: ENOXAPARIN 40 MG/0.4 ML SYR SC SCH (08:22)
[2017-06-19] MEDS: FAMOTIDINE 20 MG/NACL 50 ML IV SCH ×2 (08:23→20:07)
[2017-06-19] MEDS: PREGABALIN 100 MG CAP PO SCH ×3 (08:31→20:07)
--- NOTE | 2017-06-19 11:23 | ASMTCMCOM ---
CM Note CM Note Notes: Spoke w/RN, anticipate pt will dc home w/support of when medically stable. CM available for any changes. No therapies ordered Date Signed: 06/19/2017 11:23 AM Electronically Signed By:Katarzyna Langford RN
--- NOTE | 2017-06-19 11:55 | SOAPPROG ---
SOAP Progress Note Assessment/Plan: Assessment/Plan: 81 Y F hx ovarian CA, multiple abd surgeries, SBO. Similar to prior SBO's. Agree with bowel rest, NG decompression, IVF, and supportive care for now. AXR in am. Ok to take off suction for 20 min to walk. Discussed possibility/reasons of surgery with patient and her family. Will d/w Dr. Olivo who will see the patient later today. S: no BM x ~5d. Nausea, abd cramps, and dry heaving resolved since hospitalization and NG. O: alert, nad mmm, ng in place no wob abd softly distended with mild diffuse tenderness 06/19/17 11:52 Objective: Vital Signs Temp Pulse Resp BP Pulse Ox 36.8 C 70 14 146/90 H 95 06/19/17 03:16 06/19/17 08:00 06/19/17 03:16 06/19/17 03:16 06/19/17 08:00 Laboratory Results 06/19/17 04:55 06/19/17 04:55 06/18/17 06/19/17 06/20/17 05:59 05:59 05:59 Intake Total 1500 Output Total 320 Balance 1180 ICD10 Worksheet Patient Problems: Problems Problem Status Onset Small bowel obstruction Acute Chest pain Acute Granulosa cell carcinoma Acute Pneumonia Acute
[2017-06-19] MEDS ORDERED: morphINE SR 30 MG TAB PO SCH ×2 (13:00→21:00)
--- NOTE | 2017-06-19 13:03 | HOSPPROG ---
Hospitalist Progress Note Assessment/Plan: 81 yo F w ovarian CA admitted w SBO SBO: bowel sounds noted on exam. that said, no flatus, no bm, persistent nausea continue NGT, NPO ovarian CA: CT w progression of underlying disease I have notified dr ryder proph: lmwh pain: on chronic narcotics- will restart MScontin today (clamp NGT for a few minutes after giving) lyrica also restarted nausea: phenergan, IV dispo: inpt stay required given NGT, IV medications Subjective: case discussed w sonya colby, gen surgery PA. CT w SBO and progression of ovarian CA (images reviewed/interpreted by me) Objective: Vital Signs Temp Pulse Resp BP Pulse Ox 36.8 C 76 12 115/44 L 93 06/19/17 11:58 06/19/17 11:58 06/19/17 11:58 06/19/17 11:58 06/19/17 11:58 Laboratory Results 06/19/17 04:55 06/19/17 04:55 06/18/17 06/19/17 06/20/17 05:59 05:59 05:59 Intake Total 1500 Output Total 320 300 Balance 1180 -300 - Physical Exam Constitutional: no apparent distress, appears nourished Eyes: PERRL, anicteric sclera Ears, Nose, Mouth, Throat: moist mucous membranes, hearing normal, other (NGT) Cardiovascular: regular rate and rhythym, no murmur, rub, or gallop Respiratory: no respiratory distress, no rales or rhonchi Gastrointestinal: normoactive bowel sounds, soft, non-tender abdomen Genitourinary: No forbes in urethra Skin: warm, normal color Musculoskeletal: full muscle strength, no muscle tenderness, normal joint ROM Neurologic: AAOx3, sensation intact bilaterally Psychiatric: interacting appropriately, not anxious Lymph, Heme, Immunologic: no cervical LAD ICD10 Worksheet Patient Problems: Problems Problem Status Onset Small bowel obstruction Acute Chest pain Acute Granulosa cell carcinoma Acute Pneumonia Acute
[2017-06-19] MEDS: morphINE SR 30 MG TAB PO SCH ×2 (14:05→20:07)
[2017-06-19] MEDS: AMITRIPTYLINE HCL 25 MG TAB PO SCH (20:07)
[2017-06-19] MEDS: LORazepam 2 MG/ML INJ IVP PRN (21:10)
[2017-06-20] MEDS: D5W NS 1,000 ML IV SCH (04:43)
[2017-06-20] MEDS: ENOXAPARIN 40 MG/0.4 ML SYR SC SCH (08:55)
[2017-06-20] MEDS: morphINE SR 30 MG TAB PO SCH ×2 (08:55→22:09)
[2017-06-20] MEDS: FAMOTIDINE 20 MG/NACL 50 ML IV SCH ×2 (08:56→22:09)
[2017-06-20] MEDS: PREGABALIN 100 MG CAP PO SCH ×2 (08:56→22:09)
--- NOTE | 2017-06-20 11:35 | HOSPPROG ---
Hospitalist Progress Note Assessment/Plan: 81 yo F w ovarian CA admitted w SBO SBO: imaging better but exam worse and patient feels worse no peritoneal signs continue NGT, NPO ovarian CA: CT w progression of underlying disease I have notified dr ryder pleuritic pain: concerning for pe contrast allergy noted start w LE u/s proph: lmwh pain: on chronic narcotics- will restart MScontin today (clamp NGT for a few minutes after giving) lyrica also restarted nausea: phenergan, IV dispo: inpt stay required given NGT, IV medications Subjective: c/o r sided pleuritic pain. feels worse today. nausea. no flatus, bm. axr w no air fluid levels in sm bowel, distended colon (interp by me). d/ w dr grimm Objective: Vital Signs Temp Pulse Resp BP Pulse Ox 36.7 C 83 82 H 122/69 H 96 06/20/17 07:50 06/20/17 07:50 06/20/17 07:50 06/20/17 07:50 06/20/17 07:50 Laboratory Results 06/19/17 04:55 06/19/17 04:55 06/19/17 06/20/17 06/21/17 05:59 05:59 05:59 Intake Total 1500 1865 Output Total 320 300 Balance 1180 1565 - Physical Exam Constitutional: no apparent distress, appears nourished Eyes: PERRL, anicteric sclera Ears, Nose, Mouth, Throat: moist mucous membranes, hearing normal Cardiovascular: regular rate and rhythym, no murmur, rub, or gallop Respiratory: no respiratory distress, no rales or rhonchi Gastrointestinal: No normoactive bowel sounds, No soft, non-tender abdomen, No guarding, No rebound, No distension (very hypoactive bowel sounds) Genitourinary: no bladder fullness, No forbes in urethra Skin: warm, normal color Musculoskeletal: full muscle strength, no muscle tenderness Neurologic: AAOx3 Psychiatric: interacting appropriately ICD10 Worksheet Patient Problems: Problems Problem Status Onset Small bowel obstruction Acute Chest pain Acute Granulosa cell carcinoma Acute Pneumonia Acute
[2017-06-20] MEDS ORDERED: HEPARIN 10,000 UNIT/10 ML MDV IVP ONE (16:22)
[2017-06-20] MEDS ORDERED: HEPARIN 10,000 UNIT/10 ML MDV IVP PRN (16:22)
[2017-06-20] MEDS: HEPARIN/DEXTROSE 500 ML IV SCH (17:36)
[2017-06-20 17:40] LABS: % IMMATURE GRANULYOCYTES 0.3 % (0.0-1.1); ABSOLUTE IMMATURE GRANULOCYTES 0.02 10^3/uL (0.00-0.10); ADD DIFF? NO; ADD MORPH? NO; ADD SCAN? NO; ATYPICAL LYMPHOCYTE FLAG 10 (0-99); FRAGMENT RBC FLAG 20 (0-99); HEMATOCRIT 36.1 % (38.0-47.0); HEMOGLOBIN 11.3 g/dL (12.6-16.3); LEFT SHIFT FLG 10 (0-99); LIPEMIA HEMOLYSIS FLAG 80 (0-99); MEAN CELL HEMOGLOBIN 27.8 pg (27.9-34.1); MEAN CELL HEMOGLOBIN CONCENTR. 31.3 g/dL (32.4-36.7); MEAN CELL VOLUME 88.7 fL (81.5-99.8); MEAN PLATELET VOLUME 12.9 fL (8.7-11.7); PLATELET CLUMPS FLAG 0 (0-99); PLATELET COUNT 96 10^3/uL (150-400); RED BLOOD CELL COUNT 4.07 10^6/uL (4.18-5.33); RED CELL DISTRIBUTION WIDTH 15.7 % (11.5-15.2)
[2017-06-20 17:52] LABS: INR 1.04 (0.83-1.16); PROTIME(PATIENT) 13.5 SEC (12.0-15.0)
[2017-06-20 17:53] LABS: APTT 38.3 SEC (23.0-38.0)
[2017-06-20] MEDS: PROMETHAZINE HCL 25 MG/ML INJ IVP PRN (18:37)
[2017-06-20] MEDS: AMITRIPTYLINE HCL 25 MG TAB PO SCH (22:09)
[2017-06-21] MEDS: D5W NS 1,000 ML IV SCH ×2 (03:11→18:37)
[2017-06-21] MEDS: PROMETHAZINE HCL 25 MG/ML INJ IVP PRN ×2 (08:12→18:41)
[2017-06-21] MEDS: PREGABALIN 100 MG CAP PO SCH ×2 (08:12→21:00)
[2017-06-21] MEDS: FAMOTIDINE 20 MG/NACL 50 ML IV SCH ×2 (08:12→21:00)
[2017-06-21] MEDS: morphINE SR 30 MG TAB PO SCH ×2 (08:12→21:00)
[2017-06-21] MEDS ORDERED: methylPREDNISolone SOD SUCC 125 MG/2 ML VIAL IVP ONE (08:29)
[2017-06-21] MEDS ORDERED: FAMOTIDINE 20 MG/NACL 50 ML IV ONE (08:31)
[2017-06-21] MEDS ORDERED: IOPAMIDOL (ISOVUE 370) 100 ML BTL IV ONE (10:15)
--- NOTE | 2017-06-21 11:50 | SOAPPROG ---
SOAP Progress Note Assessment/Plan: Assessment: 81 Y F hx ovarian CA, multiple abd surgeries, SBO. Similar to prior SBO's. Will get small bowel follow through study Cont NGT NPO Seen c Dr. Olivo S: Passing gas. Pain controlled. No N/V. O: Alert, NAD MMM No increased WOB Abd soft Objective: Vital Signs Temp Pulse Resp BP Pulse Ox 37.3 C 75 16 162/70 H 98 06/21/17 11:09 06/21/17 11:09 06/21/17 11:09 06/21/17 11:09 06/21/17 11:09 Laboratory Results 06/20/17 17:22 06/19/17 04:55 06/20/17 06/21/17 06/22/17 05:59 05:59 05:59 Intake Total 1865 300 Output Total 300 Balance 1565 300 PT 13.5 SEC (12.0-15.0) 06/20/17 17:22 INR 1.04 (0.83-1.16) 06/20/17 17:22 ICD10 Worksheet Patient Problems: Problems Problem Status Onset Small bowel obstruction Acute Chest pain Acute Granulosa cell carcinoma Acute Pneumonia Acute
--- NOTE | 2017-06-21 14:15 | ASMTCMCOM ---
CM Note CM Note Notes: Chart reviewed, spoke to RN. Patient is failry independent in room, no therapies ordered. No dc needs anticipated at this time. CM available should needs arise. Date Signed: 06/21/2017 02:14 PM Electronically Signed By:Iona Mari RN
--- NOTE | 2017-06-21 17:07 | HOSPPROG ---
Hospitalist Progress Note Assessment/Plan: 81 yo F w ovarian CA admitted w SBO SBO: imaging better but exam worse and patient feels worse no peritoneal signs NG T out sm bowel follow though suggestive of improvement; await read clear liquids ovarian CA: CT w progression of underlying disease I have notified dr ryder pleuritic pain: concerning for pe contrast allergy noted start w LE u/s proph: lmwh pain: on chronic narcotics- will restart MScontin today (clamp NGT for a few minutes after giving) lyrica also restarted nausea: phenergan, IV dispo: inpt stay required given NGT, IV medications Subjective: case d/w dr ryder. CT w no PE. ngt out Objective: Vital Signs Temp Pulse Resp BP Pulse Ox 36.5 C 80 20 167/77 H 93 06/21/17 16:45 06/21/17 16:45 06/21/17 16:45 06/21/17 16:45 06/21/17 16:45 Laboratory Results 06/20/17 17:22 06/19/17 04:55 06/20/17 06/21/17 06/22/17 05:59 05:59 05:59 Intake Total 1865 300 Output Total 300 Balance 1565 300 PT 13.5 SEC (12.0-15.0) 06/20/17 17:22 INR 1.04 (0.83-1.16) 06/20/17 17:22 - Physical Exam Constitutional: no apparent distress, appears nourished Eyes: PERRL, anicteric sclera Ears, Nose, Mouth, Throat: moist mucous membranes, hearing normal Cardiovascular: regular rate and rhythym, no murmur, rub, or gallop Respiratory: no respiratory distress, no rales or rhonchi Gastrointestinal: normoactive bowel sounds, soft, non-tender abdomen Genitourinary: no bladder fullness, No forbes in urethra Skin: warm, normal color Musculoskeletal: full muscle strength, no muscle tenderness Neurologic: AAOx3 ICD10 Worksheet Patient Problems: Problems Problem Status Onset Small bowel obstruction Acute Chest pain Acute Granulosa cell carcinoma Acute Pneumonia Acute
[2017-06-21] MEDS: HEPARIN/DEXTROSE 500 ML IV SCH (18:41)
[2017-06-21] MEDS: AMITRIPTYLINE HCL 25 MG TAB PO SCH (21:00)
[2017-06-21] MEDS: LORazepam 2 MG/ML INJ IVP PRN (21:16)
[2017-06-22] MEDS: LORazepam 2 MG/ML INJ IVP PRN (04:20)
[2017-06-22 08:01] VITALS: BP 132/70; PULSE 69; RESP 16; TEMP 98; O2SAT 99
[2017-06-22] MEDS: PREGABALIN 100 MG CAP PO SCH (09:10)
[2017-06-22] MEDS: morphINE SR 30 MG TAB PO SCH (09:10)
[2017-06-22] MEDS: FAMOTIDINE 20 MG/NACL 50 ML IV SCH (09:10)
--- NOTE | 2017-06-22 11:55 | ASMTCMCOM ---
CM Note CM Note Notes: Pt. ready for d/c today. RN asked SWer to meet w/ Pt. and family due to possible needs at d/c. SWer met w/ Pt., , and son in room. Son stated they had initially though that Pt. could use another OT evaluation for safety in the home, but decided against it due to having one done already. SWer let them know PCP could order eval if they needed it in the future. Also, they wondered about getting a hospital bed. Discussed the complexities of getting Medicare to pay for a bed and again encouraged them to work with PCP to get specific script for a hospital bed sent to Medicare. Date Signed: 06/22/2017 11:54 AM Electronically Signed By:Sia Agudelo LCSW
--- NOTE | 2017-06-22 15:07 | ASDISCHSUM ---
Discharge Information Plan Status:Home with No Needs Medically Cleared to Leave: Discharge Date:06/22/2017 01:14 PM CM D/C Disposition:Home, Routine, Self-Care ADT D/C Disposition:Home, Routine, Self-Care Projected Discharge Date:06/22/2017 01:14 PM Transportation at D/C:Family Discharge Delay Reason: Follow-Up Date:06/22/2017 01:14 PM Discharge Slot: Final Diagnosis: Placement Information Patient Contact Information Contact Name:ASPEN Relationship: Address:[address] City:[place] Alternate Phone: State/Zip Code:[place] [address] Email: Financial Information Financial Class: Primary Plan Desc:MEDICARE INPATIENT Primary Plan Number:[id number] Secondary Plan Desc:[employer]/MDR SUPPLEMENT Secondary Plan Number:[id number] Assessment Information [facility] CM Progress Note CM Note CM Note Notes: Spoke w/RN, anticipate pt will dc home w/support of when medically stable. CM available for any changes. No therapies ordered Date Signed: 06/19/2017 11:23 AM Electronically Signed By:Katarzyna Langford RN [facility] CM Progress Note CM Note CM Note Notes: Chart reviewed, spoke to RN. Patient is failry independent in room, no therapies ordered. No dc needs anticipated at this time. CM available should needs arise. Date Signed: 06/21/2017 02:14 PM Electronically Signed By:Iona Mari RN [facility] CM Progress Note CM Note CM Note Notes: Pt. ready for d/c today. RN asked SWer to meet w/ Pt. and family due to possible needs at d/c. SWer met w/ Pt., , and son in room. Son stated they had initially though that Pt. could use another OT evaluation for safety in the home, but decided against it due to having one done already. SWer let them know PCP could order eval if they needed it in the future. Also, they wondered about getting a hospital bed. Discussed the complexities of getting Medicare to pay for a bed and again encouraged them to work with PCP to get specific script for a hospital bed sent to Medicare. Date Signed: 06/22/2017 11:54 AM Electronically Signed By:Sia Agudelo LCSW Intervention Information
--- NOTE | 2017-06-26 04:53 | GCON ---
[f rep st] CONSULTATION DATE OF CONSULTATION: 06/19/2017 HISTORY OF PRESENT ILLNESS: Patient is an 81-year-old female with a history of ovarian cancer. She has had multiple abdominal surgeries and multiple small bowel obstructions which usually resolve with NG suction and time. Presents, again, with abdominal cramps and distention, vomiting, and small bow el obstruction seen on CT scan. She does use narcotics for pain with some constipation issues, and s he is presently on chemotherapy for her ovarian cancer. PAST MEDICAL HISTORY: Includes: Ovarian cancer with total abdominal hysterectomy and BSO, omentecto my. She has also received some radiation therapy. She has had 5 separate abdominal surgeries, as we ll, and back fusion surgery. REVIEW OF SYSTEMS: Negative on 10-point review of systems. Specifically, she does not smoke, has no cardiopulmonary symptoms. ALLERGIES: Iodine, hydromorphone. MEDICATIONS: MS Contin, omeprazole, Ativan, oxycodone, promethazine, Zofran, duloxetine, amitriptyli ne, pregabalin, and vitamin D. PHYSICAL EXAMINATION: GENERAL: Reveals alert, reasonably comfortable, 81-year-old female in no acut e distress. HEAD AND NECK: Reveal no adenopathy. No icterus. No oral lesions. Her neck is supple . Pupils are equal and reactive. CHEST: Clear and symmetric. CARDIAC: Reveals a regular rhythm w ithout murmurs. ABDOMEN: Soft. She is mildly distended. There is no significant tenderness and pa rticularly no peritoneal signs such as rebound or guarding. She does have positive active bowel soun ds. There are no palpable hernias. EXTREMITIES: Reveal full range of motion, full pulses. No sign ificant edema. NEUROLOGIC: Physiologic. Intact cranial nerves and symmetrical motor function. PSY CHIATRIC: Reveals her to be alert, oriented, and cooperative. SKIN: Reveals no current rashes or l esions. IMPRESSION: Possible partial small bowel obstruction. Agree with nasogastric tube and IV fluids and followup abdominal x-rays. We will follow with you. Copy requested to: Dr. Nina Pitt #: [id number]
== END 2017-06-22 13:14 | disposition home or self-care (01) | DRG 389 ==
LOC: F3E 21:11
PROVIDERS: ADMIT Internal Medicine; ATTEND Internal Medicine
PROC: 0D9670Z Drainage of Stomach with Drainage Device, Via Natural or Artificial Opening (ICD-10-PCS; principal; 2017-06-18)
DX: K56.69 Other intestinal obstruction (principal); C79.89 Secondary malignant neoplasm of other specified sites; Z85.43 Personal history of malignant neoplasm of ovary; T40.2X5A Adverse effect of other opioids, initial encounter; I82.492 Acute embolism and thrombosis of other specified deep vein of left lower extremity; K21.9 Gastro-esophageal reflux disease without esophagitis; M81.0 Age-related osteoporosis without current pathological fracture; Z98.1 Arthrodesis status
CPT/HCPCS: 85520-90; 96374; J1200; J1644; J1650; J2060; J2405; J2550; Q9967

== ENCOUNTER → 2017-07-03 | Outpatient (CLI) | payer OTHER, MEDICARE | LOC: FIMAGING 12:51 | PROVIDERS: ATTEND Nurse Practitioner | DX: Z03.89 Encounter for observation for other suspected diseases and conditions ruled out (principal) ==

== ENCOUNTER 2017-08-29 17:11 | Inpatient (IN) | payer OTHER, MEDICARE ==
[2017-08-29] MEDS ORDERED: NS 1,000 ML IV ONE (17:34)
[2017-08-29] MEDS ORDERED: ONDANSETRON 4 MG/2 ML VIAL IVP ONE (17:34)
--- NOTE | 2017-08-29 17:39 | EDPHY ---
H & P Stated Complaint: n/v abd pain hx ovarian cancer and SBO Time Seen by Provider: 08/29/17 17:28 HPI/ROS: Chief complaint: Abdominal pain with nausea and vomiting History of present illness: This is an 81-year-old female with a known history of metastatic ovarian cancer, with extensive abdominal pelvic surgical history and history of small-bowel obstructions who presents to the emergency department with family for abdominal pain with nausea and vomiting. Symptoms began this afternoon. She describes pain in the epigastric region. She has remained persistently nauseated and has dry heaves. Family has treated with MS Contin, Valium and Zofran but symptoms persist. She states this feels similar to past bowel obstructions. Denies other associated signs or symptoms including no fevers, no urinary symptoms. Last bowel movement last night. Review of systems: A 10 point review of systems was obtained and other than described above was negative - Personal History Current Tetanus/Diphtheria Vaccine: Yes Tetanus Vaccine Date: unsure - Medical/Surgical History Hx Asthma: No Hx Chronic Respiratory Disease: No Hx Diabetes: No Hx Cardiac Disease: No Hx Renal Disease: No Hx Cirrhosis: No Hx Alcoholism: No Hx HIV/AIDS: No Hx Splenectomy or Spleen Trauma: No Other PMH: ovarian CA diag 30 yr ago with 7surg & 1 round of chemo, radiatin, depression, back surgery, PNA, recurrent bowel obstruction, cancer currently, lymphedema,. GERD - Social History Smoking Status: Former smoker - Physical Exam Exam: General Appearance: Alert, appears unwell. Eyes: Pupils equal and round no pallor or injection. ENT, Mouth: Mucous membranes moist. Respiratory: There are no retractions, lungs are clear to auscultation. Cardiovascular: Regular rate and rhythm. Gastrointestinal: Bowel sounds are hyperactive. Abdomen is soft however there is diffuse tenderness to palpation. Neurological: Alert and oriented. Strength and sensation intact and symmetrical. Skin: Warm and dry, no rashes. Musculoskeletal: Neck is supple non tender. Extremities are symmetrical, full range of motion. Psychiatric: Patient is oriented X 3, there is no agitation. Constitutional: Initial Vital Signs Temperature (C) 36.5 C 08/29/17 17:16 Heart Rate 88 08/29/17 17:16 Respiratory Rate 17 08/29/17 17:16 Blood Pressure 171/78 H 08/29/17 17:16 O2 Sat (%) 91 L 08/29/17 17:16 O2 Delivery Mode Room Air Allergies/Adverse Reactions: hydromorphone Allergy (Verified 06/18/17 18:54) Rash Iodinated Contrast- Oral and IV Dye [Iodinated Contrast Media - IV Dye] Allergy (Verified 06/18/17 18:54) Dyspnea IODINE Allergy (Severe, Uncoded 12/10/16 16:49) Dyspnea DAISIES Allergy (Uncoded 12/10/16 16:49) Other-Enter Comments tape Allergy (Uncoded 12/10/16 16:49) Home Medications: Medication Instructions Recorded Amitriptyline HCl [Elavil] 25 mg PO HS 08/29/17 DULoxetine [Cymbalta 60 MG (*)] 60 mg PO DAILY 08/29/17 LORazepam [Ativan (*)] 1 mg PO HS 08/29/17 Levothyroxine Unknown Dose 1 tab PO DAILY 08/29/17 Nivolumab Unknown Dose 1 dose 08/29/17 Omeprazole 40 mg PO DAILY 08/29/17 Ondansetron Odt [Zofran Odt 4 mg 4 - 8 mg PO Q4 PRN 08/29/17 (*)] Pregabalin [LYRICA] 100 mg PO BID 08/29/17 Promethazine HCl [Phenergan 25mg 6.25 - 12.5 mg PO BID PRN 08/29/17 (*)] Sennosides/Docusate Sodium 2 each PO BID 08/29/17 [Senokot-S (OTC)] morphINE SR [MS Contin/Oramorph SR 30 mg PO DAILY 08/29/17 30 mg (*)] morphINE SR [Ms Contin/Oramorph 15 15 mg PO HS 08/29/17 mg (*)] Medical Decision Making - Diagnostics Imaging Results: Imaging Impressions Abdomen/Pelvis CT 08/29/17 17:34 Impression: 1. Metastatic ovarian carcinoma with enlarging pelvic metastasis, persistent hepatic metastasis, osseous metastasis, and pulmonary metastasis. 2. Small bowel obstruction with high-grade distal small bowel obstruction. 3. Constipation. 4. No drainable abscess or pneumoperitoneum. Attention: This CT examination is specifically designed to evaluate patients who are clinically suspected of having acute obstructive uropathy. This examination does not use radiographic contrast, and as such, provides only a limited evaluation of the abdomen, pelvis, and retroperitoneum. If there is further clinical suspicion for pathological conditions other than obstructive uropathy, a complete CT evaluation of the abdomen and pelvis utilizing intravenous, oral, and rectal contrast should be considered. Findings and recommendations discussed with emergency department physician office services assistant, Ari Strickland PA-C at 1854 hours on August 29, 2017. Final report concurs with initial preliminary interpretation. Imaging: Discussed imaging studies w/ bilingual call center representative Radiologist ED Course/Re-evaluation: Patient is discussed with my secondary supervising physician Dr. Daniel Castano. Patient presents to the emergency department with abdominal pain and nausea and vomiting. Ultimately she appears to have a small-bowel obstruction. She is admitted to the hospitalist service, Dr. Diaz. On-call surgery Dr. Hawkins has consulted on this patient and placed an NG tube. Differential Diagnosis: Included but not limited to bowel obstruction, gastritis, gastroenteritis, biliary tract disease, pancreatitis, - Data Points Laboratory Results: Laboratory Results 08/29/17 18:30 08/29/17 08/29/17 18:30 18:30 WBC 9.32 10^3/uL 10^3/uL (3.80-9.50) RBC 4.17 10^6/uL L 10^6/uL (4.18-5.33) Hgb 11.6 g/dL L g/dL (12.6-16.3) Hct 35.6 % L % (38.0-47.0) MCV 85.4 fL fL (81.5-99.8) MCH 27.8 pg L pg (27.9-34.1) MCHC 32.6 g/dL g/dL (32.4-36.7) RDW 16.2 % H % (11.5-15.2) Plt Count 102 10^3/uL L 10^3/uL (150-400) MPV 12.0 fL H fL (8.7-11.7) Neut % (Auto) 83.1 % H % (39.3-74.2) Lymph % (Auto) 9.0 % L % (15.0-45.0) Nash % (Auto) 5.7 % % (4.5-13.0) Eos % (Auto) 1.3 % % (0.6-7.6) Baso % (Auto) 0.5 % % (0.3-1.7) Nucleat RBC Rel Count 0.0 % % (0.0-0.2) Absolute Neuts (auto) 7.74 10^3/uL H 10^3/uL (1.70-6.50) Absolute Lymphs (auto) 0.84 10^3/uL L 10^3/uL (1.00-3.00) Absolute Monos (auto) 0.53 10^3/uL 10^3/uL (0.30-0.80) Absolute Eos (auto) 0.12 10^3/uL 10^3/uL (0.03-0.40) Absolute Basos (auto) 0.05 10^3/uL 10^3/uL (0.02-0.10) Absolute Nucleated RBC 0.00 10^3/uL 10^3/uL (0-0.01) Immature Gran % 0.4 % % (0.0-1.1) Immature Gran # 0.04 10^3/uL 10^3/uL (0.00-0.10) Total Bilirubin 0.5 mg/dL mg/dL (0.1-1.4) Conjugated Bilirubin 0.4 mg/dL mg/dL (0.0-0.5) Unconjugated Bilirubin 0.1 mg/dL mg/dL (0.0-1.1) AST 35 IU/L IU/L (14-46) ALT 32 IU/L IU/L (9-52) Alkaline Phosphatase 59 IU/L IU/L (38-126) Total Protein 5.2 g/dL L g/dL (6.3-8.2) Albumin 2.8 g/dL L g/dL (3.5-5.0) Lipase 36 IU/L IU/L (23-300) Medications Given: Sodium Chloride (1/2 Ns) 1,000 mls @ 100 mls/hr IV CONT AICHA Stop: 02/25/18 20:14 Last Admin: 08/29/17 21:32 Dose: 1,000 mls Morphine Sulfate (Morphine) 2 - 4 mg IVP Q2 PRN PRN Reason: Pain, Severe Unable to Take PO Stop: 09/08/17 20:02 Last Admin: 08/29/17 21:37 Dose: 2 mg Ondansetron HCl (Zofran) 4 mg IVP Q4 PRN PRN Reason: Nausea/Vomiting, Can't Take PO Stop: 02/25/18 20:02 Last Admin: 08/29/17 21:36 Dose: 4 mg Discontinued Medications Fentanyl (Sublimaze) 50 mcg IVP EDNOW ONE Stop: 08/29/17 19:01 Last Admin: 08/29/17 19:03 Dose: 50 mcg Sodium Chloride (Ns) 1,000 mls @ 0 mls/hr IV EDNOW ONE; Wide Open PRN Reason: Protocol Stop: 08/29/17 17:35 Last Admin: 08/29/17 17:41 Dose: 1,000 mls Ketorolac Tromethamine (Toradol) 15 mg IVP EDNOW ONE Stop: 08/29/17 19:05 Last Admin: 08/29/17 19:13 Dose: 15 mg Lidocaine (Uroject Lidocaine 2% Jelly) 20 ml UR ONCE ONE Stop: 08/29/17 19:51 Last Admin: 08/29/17 19:50 Dose: 20 ml Morphine Sulfate (Morphine) 4 mg IVP EDNOW ONE Stop: 08/29/17 17:35 Last Admin: 08/29/17 17:41 Dose: 4 mg Ondansetron HCl (Zofran) 4 mg IVP EDNOW ONE Stop: 08/29/17 17:35 Last Admin: 08/29/17 17:41 Dose: 4 mg Promethazine HCl (Phenergan) 6.25 mg IVP EDNOW ONE Stop: 08/29/17 19:02 Last Admin: 08/29/17 19:03 Dose: 6.25 mg Departure - Departure Disposition: [facility] Acute Clinical Impression: Small bowel obstruction Condition: Fair
[2017-08-29 18:48] LABS: % IMMATURE GRANULYOCYTES 0.4 % (0.0-1.1); ABSOLUTE IMMATURE GRANULOCYTES 0.04 10^3/uL (0.00-0.10); ADD DIFF? NO; ADD MORPH? NO; ADD SCAN? NO; ATYPICAL LYMPHOCYTE FLAG 0 (0-99); FRAGMENT RBC FLAG 0 (0-99); HEMATOCRIT 35.6 % (38.0-47.0); HEMOGLOBIN 11.6 g/dL (12.6-16.3); LEFT SHIFT FLG 10 (0-99); LIPEMIA HEMOLYSIS FLAG 80 (0-99); MEAN CELL HEMOGLOBIN 27.8 pg (27.9-34.1); MEAN CELL HEMOGLOBIN CONCENTR. 32.6 g/dL (32.4-36.7); MEAN CELL VOLUME 85.4 fL (81.5-99.8); PLATELET CLUMPS FLAG 20 (0-99); PLATELET COUNT 102 10^3/uL (150-400); RED BLOOD CELL COUNT 4.17 10^6/uL (4.18-5.33); RED CELL DISTRIBUTION WIDTH 16.2 % (11.5-15.2)
[2017-08-29] MEDS ORDERED: PROMETHAZINE HCL 25 MG/ML INJ ONE (18:57)
[2017-08-29] MEDS ORDERED: fentaNYL 100 MCG/2 ML INJ ONE (18:57)
[2017-08-29 18:58] LABS: ALBUMIN 2.8 g/dL (3.5-5.0); BILIRUBIN,TOTAL 0.5 mg/dL (0.1-1.4); BILIRUBIN-CONJUGATED 0.4 mg/dL (0.0-0.5); BILIRUBIN-UNCONJUGATED 0.1 mg/dL (0.0-1.1); TOTAL PROTEIN 5.2 g/dL (6.3-8.2)
[2017-08-29] MEDS ORDERED: fentaNYL 100 MCG/2 ML INJ IVP ONE (19:00)
[2017-08-29] MEDS ORDERED: PROMETHAZINE HCL 25 MG/ML INJ IVP ONE (19:01)
[2017-08-29] MEDS ORDERED: KETOROLAC 15 MG/1 ML SDV IVP ONE (19:04)
[2017-08-29] MEDS ORDERED: LIDOCAINE 2% JELLY 20 ML (UROJECT) ONE (19:31)
[2017-08-29] MEDS ORDERED: LIDOCAINE 2% JELLY 20 ML (UROJECT) UR ONE (19:50)
[2017-08-29] MEDS ORDERED: ACETAMINOPHEN 325 MG TAB PO PRN (20:03)
[2017-08-29] MEDS ORDERED: ACETAMINOPHEN 650 MG SUPP PR PRN (20:03)
[2017-08-29 20:19] LABS: ANION GAP 10 mEq/L (8-16); CALCIUM 6.8 mg/dL (8.5-10.4); CARBON DIOXIDE 20 mEq/l (22-31); CHLORIDE 109 mEq/L (97-110); CREATININE 0.5 mg/dL (0.6-1.0); GLOMERULAR FILTRATION RATE > 60; GLUCOSE 88 mg/dL (70-100); SODIUM 139 mEq/L (134-144); SPECIMEN HEMOLYSIS 116
--- NOTE | 2017-08-29 21:05 | GHP ---
[f rep st] HISTORY AND PHYSICAL DATE OF ADMISSION: 08/29/2017 CHIEF COMPLAINT: Abdominal pain. HISTORY: Patient is an 81-year-old female with a long-standing history of metastatic ovarian cancer diagnosed in 1979. She has had 5 debulking surgeries. She has had 5 bowel obstructions over the las t 2 years. All of these have resolved with conservative therapy. She now presents with her usual leandro wel obstruction symptoms which include diffuse abdominal pain with nausea and a little bit of vomitin g. Her last bowel movement was last night. She is now comfortable after NG tube placement and decom pression. PAST MEDICAL HISTORY: 1. Ovarian cancer diagnosed in 1979. Initially a hysterectomy and appendectomy performed. Subseque ntly she has had 5 debulking surgeries. 2. Recurrent small bowel obstructions. MEDICATIONS: Please see computer record for full detailed list. ALLERGIES: IV dye and Dilaudid. SOCIAL HISTORY: No smoking. Social alcohol. She lives with her and son. REVIEW OF SYSTEMS: Complete review of systems obtained. Review of systems negative regarding consti tutional, HEENT, GI, pulmonary, cardiovascular, , hematology, skin, muscular, endocrine, psych exce pt for positives noted as in HPI. FAMILY HISTORY: Reviewed and noncontributory to presenting complaint. PHYSICAL EXAMINATION: GENERAL: Well-nourished female in no distress. VITAL SIGNS: Temperature 36. 5, pulse 88, blood pressure 171/78, saturating 91% on room air. EYES: Normal conjunctivae. Pupils reactive to light. ENT: Normal ears and nose. Hearing intact. Normal lips and teeth. Oropharynx moist. NECK: Trachea midline. No thyromegaly. CHEST: Normal respiratory effort. LUNGS: Clear t o auscultation bilaterally. CARDIOVASCULAR: Regular rate and rhythm. No murmur. No lower extremit y edema. ABDOMEN: Soft, distended, minimal tenderness, hyperactive bowel sounds. No hepatosplenome vince. SKIN: Warm, dry, intact. No rash. MUSCULOSKELETAL: No cyanosis or clubbing. Strength 5/5 upper and lower extremities. NEUROLOGIC: Cranial nerves intact. Normal sensation to light touch. PSYCHIATRIC: Alert and oriented x3. Normal mood and affect. Normal judgment. Normal memory. LABORATORY DATA: White count 9.32, hematocrit 35.6, platelets 102. LFTs are negative. CT scan of the abdomen and pelvis shows metastatic ovarian cancer with enlarging pelvic mets, hepatic mets, osseous and pulmonary mets, with a high-grade SBO. ASSESSMENT/PLAN: 1. Recurrent small bowel obstruction. She has had this multiple times in the past and it has always resolved with conservative therapy. I spoke with Dr. Hawkins and he has already seen the patient in consultation. She has an NG tube in place. We will place this to low intermittent wall suction. 2. Metastatic ovarian cancer. She is currently on immunotherapy with Dr. Wood. Our CT scan here shows enlarging metastases. She is planning to fly to [place] on Saturday because she has an oncolo gy followup appointment at [facility] this upcoming week. They are aware that she this bowel obstru ction may get in the way with their plans for travel. 3. Chronic pain with continuous narcotic dependency. We will hold her long-acting narcotics while s he is n.p.o. CODE STATUS: Full. ADMISSION STATUS: Will admit to inpatient as anticipate greater than 2 midnights required for stabil ization. DEEP VEIN THROMBOSIS PROPHYLAXIS: She is high risk. We will place her on subcu Lovenox. /[id number]/MODL
[2017-08-29] MEDS: 1/2 NS 1,000 ML IV SCH (21:32)
[2017-08-29] MEDS: ONDANSETRON 4 MG/2 ML VIAL IVP PRN (21:36)
--- NOTE | 2017-08-29 21:46 | GCON ---
[f rep st] CONSULTATION REASON FOR CONSULTATION: Bowel obstruction. 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 This was discovered at the [facility]. She underwent surgery. She had an incidental appendectomy in addition to her total abdominal hysterectomy, bilateral salpingo-oophorectomy and salpingectomy. Twelve years later at this hospital, she underwent debulking of a recurrent tumor. She underwent postoperative radiation. That was done by Dr. Turner Olivo. In 1999, she was at [facility] and had a debulking with intraoperative radiation therapy. In 2001 she had a debulking with intraoperative radiation therapy at [facility]. In 2004 she had a debulking at [facility]. In 2009 she had a debulking and her last radiation therapy at [place]. In December 2015 she had a small bowel obstruction which resolved without surgery. This was repeated in June 2016, October 2016 and April 2017. Yesterday, after lunch , she had a 30 minute bout of discomfort, which then resolved. Today after lunch, she had increasing abdominal pain, nausea and vomited 1 time. She passed gas this morning, but has not done so since. Given her prior history, the family was alerted to the possibility of a bowel obstruction and brought her directly to the ER for evaluation. I was asked to come to share in her evaluation. SOCIAL HISTORY: She smoked a few cigarettes a day from ages [age]. She does not drink alcohol at this time. ALLERGIES: She has no known drug allergies. MEDICATIONS: Include Tylenol 650 mg p.o. q.4 hours as needed. She takes amitriptyline 25 mg at bedtime. She takes cholecalciferol, vitamin D3 1000 units daily. She takes Cymbalta 30 mg daily. She uses 5 mg of Valium every 6 hours as needed. She uses Ativan 1 mg at bedtime. She uses milk of magnesia 30 cc daily for constipation. She uses MS Contin SR 30 mg every 12 hours. She uses Prilosec 20 mg daily, Zofran ODT 4 mg to 8 mg every 4 hours as needed. She takes Lyrica 100 mg twice a day. She uses Phenergan 6.25 to 12.5 mg as needed. She uses Zantac as needed. She also uses levothyroxine. She uses a chemotherapy unit, nivolumab, monthly. Note is made that she seems to develop a cough after the medication. PAST SURGICAL HISTORY: Also includes a lumbar surgery (fusion), and cataract surgery. She also has had a disc stabilized with injected cement. No history of rheumatic fever, tuberculosis, or hepatitis. She has had transfusions in the past. She wears lenses for reading. She has 2 bridges. She has been known to be hypothyroid for approximately a month. She does get short of breath with exercise. PHYSICAL EXAMINATION: She is awake and alert. I placed an NG tube (18-Nepali, right nares). She is awake, alert, and oriented. I am not detecting carotid bruits. Her lungs are clear to auscultation. Cardiac exam shows S1, S2 to be normal. Her abdomen is tensely distended. I do not detect any inguinal or incisional hernias. Bowel sounds are actually present and only slightly high- pitched. Her abdomen is tensely distended but not tender. Her CT scan shows a large amount of stool in the colon. There is a dilated distal small bowel. She has diffuse osseous metastasis identified. There is no distinct abscess. IMPRESSION: Patient with a history of recurrent bowel obstructions. An NG tube has been placed. I recommend that we do follow her thyroid functions and consider enemas to clean out her colon. Hopefully nonoperative approach will be again successful for her. /[id number]/MODL MTDD
[2017-08-29] MEDS: LORazepam 2 MG/ML INJ IVP PRN (23:06)
[2017-08-30] MEDS: PROMETHAZINE HCL 25 MG/ML INJ IVP PRN ×3 (00:57→20:17)
[2017-08-30 05:25] LABS: % IMMATURE GRANULYOCYTES 0.3 % (0.0-1.1); ABSOLUTE IMMATURE GRANULOCYTES 0.04 10^3/uL (0.00-0.10); ADD DIFF? NO; ADD MORPH? NO; ADD SCAN? NO; ATYPICAL LYMPHOCYTE FLAG 0 (0-99); FRAGMENT RBC FLAG 20 (0-99); HEMATOCRIT 35.9 % (38.0-47.0); HEMOGLOBIN 11.6 g/dL (12.6-16.3); LEFT SHIFT FLG 20 (0-99); LIPEMIA HEMOLYSIS FLAG 80 (0-99); MEAN CELL HEMOGLOBIN 27.1 pg (27.9-34.1); MEAN CELL HEMOGLOBIN CONCENTR. 32.3 g/dL (32.4-36.7); MEAN CELL VOLUME 83.9 fL (81.5-99.8); MEAN PLATELET VOLUME 13.3 fL (8.7-11.7); PLATELET CLUMPS FLAG 0 (0-99); PLATELET COUNT 114 10^3/uL (150-400); RED BLOOD CELL COUNT 4.28 10^6/uL (4.18-5.33); RED CELL DISTRIBUTION WIDTH 15.9 % (11.5-15.2)
[2017-08-30] MEDS: 1/2 NS 1,000 ML IV SCH ×2 (05:29→17:37)
[2017-08-30 05:43] LABS: ANION GAP 11 mEq/L (8-16); CALCIUM 7.9 mg/dL (8.5-10.4); CARBON DIOXIDE 27 mEq/l (22-31); CHLORIDE 101 mEq/L (97-110); CREATININE 0.7 mg/dL (0.6-1.0); GLOMERULAR FILTRATION RATE > 60; GLUCOSE 129 mg/dL (70-100); POTASSIUM 4.1 mEq/L (3.5-5.2); SODIUM 139 mEq/L (134-144)
--- NOTE | 2017-08-30 10:46 | PDMN ---
Medical Necessity Medical necessity: est los>2mn for recurrent SBO; admit for NGT, surgery consult ; comorbid metastatic ovarian cancer on immunotherapy; per order and H&P
--- NOTE | 2017-08-30 11:50 | SOAPPROG ---
SOAP Progress Note Assessment/Plan: Assessment: AFEBRILE/ DISTENDED/ 800 NG OUTPUT/ 2-WAY SUGGESTS CONSTIPATION RATHER THAN SBO SBFT 10 WEEKS AGO WAS OK ABD SOFT WITH BS AND NONTENDER BUT DISTENDED MODERATELY Plan:CONSIDER CATHARSIS AND SBFT/ WILL FOLLOW WITH NG 08/30/17 11:46 Objective: Vital Signs Temp Pulse Resp BP Pulse Ox 36.8 C 82 19 143/58 H 96 08/30/17 11:32 08/30/17 11:32 08/30/17 11:32 08/30/17 11:32 08/30/17 11:32 Laboratory Results 08/30/17 05:16 08/30/17 05:16 08/29/17 08/30/17 08/31/17 05:59 05:59 05:59 Intake Total 1800 Output Total 900 Balance 900 ICD10 Worksheet Patient Problems: Problems Problem Status Onset Small bowel obstruction Acute Chest pain Acute Granulosa cell carcinoma Acute Pneumonia Acute
--- NOTE | 2017-08-30 13:39 | HOSPPROG ---
Hospitalist Progress Note Assessment/Plan: SBO - significant output from NG tube. Abd xray personally reviewed and interpreted, shows air fluid levels, persistent obstruction. Surgery following. -cont NG tube -repeat XR in am -consider SBFT Leukocytosis - ?stress reaction. No fever or e/o infection. Follow. Metastatic ovarian cancer - on immunotherapy, followed by Dr. Wood, plans to go to [place] for f/u Chronic pain with continuous opioid dependence - PO meds on hold, prn IV morphine for pain Full code DVT PPLX - Lovenox Dispo - cont inpt Subjective: Pt continues to have nausea, some pain. No fevers. She feels anxious. Objective: Vital Signs Temp Pulse Resp BP Pulse Ox 36.8 C 82 19 143/58 H 96 08/30/17 11:32 08/30/17 11:32 08/30/17 11:32 08/30/17 11:32 08/30/17 11:32 Laboratory Results 08/30/17 05:16 08/30/17 05:16 08/29/17 08/30/17 08/31/17 05:59 05:59 05:59 Intake Total 1800 Output Total 900 Balance 900 - Physical Exam Constitutional: no apparent distress Eyes: PERRL Ears, Nose, Mouth, Throat: moist mucous membranes Cardiovascular: regular rate and rhythym Respiratory: no respiratory distress Gastrointestinal: other (high pitched, hypoactive bowel tones, abd soft, mild distention) Skin: warm Musculoskeletal: full muscle strength Neurologic: AAOx3 Psychiatric: interacting appropriately ICD10 Worksheet Patient Problems: Problems Problem Status Onset Small bowel obstruction Acute Chest pain Acute Granulosa cell carcinoma Acute Pneumonia Acute
[2017-08-30] MEDS: LORazepam 2 MG/ML INJ IVP PRN ×2 (14:44→23:12)
[2017-08-30] MEDS: ONDANSETRON 4 MG/2 ML VIAL IVP PRN (14:44)
[2017-08-30] MEDS: PANTOPRAZOLE SODIUM 40 MG VIAL IVP SCH (16:58)
[2017-08-30] MEDS: ENOXAPARIN 40 MG/0.4 ML SYR SC SCH (16:59)
--- NOTE | 2017-08-30 17:06 | ASMTCMCOM ---
CM Note CM Note Notes: 08/30/2017 Case Management Note. Fellow Die Turner met with pt. Pt has strong family support. She lives with her and son. Family has cancelled a planned trip to [facility]. Pt d/c needs are unclear at this time. Case Management d/c poc: TBD Case Management will follow. Date Signed: 08/30/2017 05:05 PM Electronically Signed By:Cathie David RN
[2017-08-31] MEDS: 1/2 NS 1,000 ML IV SCH ×2 (04:52→22:01)
[2017-08-31 05:29] LABS: ADD DIFF? NO; ADD MORPH? NO; ADD SCAN? NO; ATYPICAL LYMPHOCYTE FLAG 0 (0-99); FRAGMENT RBC FLAG 0 (0-99); HEMATOCRIT 31.6 % (38.0-47.0); HEMOGLOBIN 10.2 g/dL (12.6-16.3); LEFT SHIFT FLG 0 (0-99); LIPEMIA HEMOLYSIS FLAG 80 (0-99); MEAN CELL HEMOGLOBIN 27.2 pg (27.9-34.1); MEAN CELL HEMOGLOBIN CONCENTR. 32.3 g/dL (32.4-36.7); MEAN CELL VOLUME 84.3 fL (81.5-99.8); MEAN PLATELET VOLUME 12.8 fL (8.7-11.7); PLATELET CLUMPS FLAG 0 (0-99); PLATELET COUNT 130 10^3/uL (150-400); RED BLOOD CELL COUNT 3.75 10^6/uL (4.18-5.33); RED CELL DISTRIBUTION WIDTH 16.3 % (11.5-15.2)
[2017-08-31] MEDS: PANTOPRAZOLE SODIUM 40 MG VIAL IVP SCH (08:43)
[2017-08-31] MEDS: ENOXAPARIN 40 MG/0.4 ML SYR SC SCH (08:43)
[2017-08-31] MEDS: PROMETHAZINE HCL 25 MG/ML INJ IVP PRN ×2 (09:00→19:36)
--- NOTE | 2017-08-31 13:19 | HOSPPROG ---
Hospitalist Progress Note Assessment/Plan: SBO - Suspect related to chronic opiate use. Now with decreasing NG output. Abd xray personally reviewed and interpreted, shows improvement with decreasing air fluid levels. Pt passing flatus and had small BM today. Discussed with surgery service. -clamp NG tube x4 hrs and check outpt. If <200 mL's, will d/c NG -trial lactulose -one time dose of relistor Leukocytosis - ?stress reaction. Resolved. Metastatic ovarian cancer - on immunotherapy, followed by Dr. Wood, plans to go to [place] for f/u Chronic pain with continuous opioid dependence - PO meds on hold, prn IV morphine for pain -resume home meds when taking po with aggressive bowel regimen to prevent SBO Full code DVT PPLX - Lovenox Dispo - cont inpt Subjective: Pt doing ok. She is passing gas. Also reports small hard BM this afternoon. No N/V. NG tube in with decreasing outpt. No fevers. Objective: Vital Signs Temp Pulse Resp BP Pulse Ox 36.4 C 91 16 159/64 H 96 08/31/17 13:10 08/31/17 13:10 08/31/17 13:10 08/31/17 13:10 08/31/17 13:10 Laboratory Results 08/31/17 04:04 08/30/17 05:16 08/30/17 08/31/17 09/01/17 05:59 05:59 05:59 Intake Total 1800 1399 Output Total 900 1250 500 Balance 900 149 -500 - Physical Exam Constitutional: no apparent distress Eyes: PERRL Ears, Nose, Mouth, Throat: moist mucous membranes Cardiovascular: regular rate and rhythym Respiratory: no respiratory distress, clear to auscultation Gastrointestinal: normoactive bowel sounds, soft, non-tender abdomen Skin: warm Musculoskeletal: full muscle strength Neurologic: AAOx3 Psychiatric: interacting appropriately ICD10 Worksheet Patient Problems: Problems Problem Status Onset Small bowel obstruction Acute Chest pain Acute Granulosa cell carcinoma Acute Pneumonia Acute
--- NOTE | 2017-08-31 13:23 | SOAPPROG ---
SOAP Progress Note Assessment/Plan: Assessment: AFEBRILE/ DISTENDED/ 800 NG OUTPUT/ 2-WAY SUGGESTS CONSTIPATION RATHER THAN SBO SBFT 10 WEEKS AGO WAS OK ABD SOFT WITH BS AND NONTENDER BUT DISTENDED MODERATELY Plan:CONSIDER CATHARSIS AND SBFT/ WILL FOLLOW WITH NG 08/30/17 11:46 08/31/17 13:21 See continues to improve with some flatus today in a small amount of bowel movement/abdomen much softer and less tender and less distended/afebrile/she is hungry/decreased NG output Seems to be improving overall and probably needs catharsis potentially with lactulose or other oral laxatives/she will need a small-bowel follow-through again at some point when she is moving things through Objective: Vital Signs Temp Pulse Resp BP Pulse Ox 36.4 C 91 16 159/64 H 96 08/31/17 13:10 08/31/17 13:10 08/31/17 13:10 08/31/17 13:10 08/31/17 13:10 Laboratory Results 08/31/17 04:04 08/30/17 05:16 08/30/17 08/31/17 09/01/17 05:59 05:59 05:59 Intake Total 1800 1399 Output Total 900 1250 500 Balance 900 149 -500 ICD10 Worksheet Patient Problems: Problems Problem Status Onset Small bowel obstruction Acute Chest pain Acute Granulosa cell carcinoma Acute Pneumonia Acute
[2017-08-31] MEDS: ONDANSETRON 4 MG/2 ML VIAL IVP PRN (13:41)
[2017-08-31] MEDS ORDERED: LACTULOSE 20 GM/30 ML UDCUP PO ONE ×2 (14:02→17:30)
[2017-08-31] MEDS ORDERED: METHYLNALTREXONE BROMIDE 12 MG/0.6 ML INJ SC ONE (14:02)
--- NOTE | 2017-08-31 16:06 | ASMTCMCOM ---
CM Note CM Note Notes: PT still pending. OT recommending home vs homecare. Pt has had [facility] in the past. Date Signed: 08/31/2017 04:06 PM Electronically Signed By:ANIL Murray
[2017-08-31] MEDS ORDERED: hydrOXYzine HCL 25 MG TAB PO PRN (17:28)
[2017-08-31] MEDS: LORazepam 2 MG/ML INJ IVP PRN (21:59)
[2017-09-01] MEDS: PROMETHAZINE HCL 25 MG/ML INJ IVP PRN ×4 (01:58→20:55)
[2017-09-01] MEDS: LORazepam 2 MG/ML INJ IVP PRN ×4 (04:31→22:17)
[2017-09-01] MEDS: ENOXAPARIN 40 MG/0.4 ML SYR SC SCH (08:57)
[2017-09-01] MEDS: PANTOPRAZOLE SODIUM 40 MG VIAL IVP SCH (08:57)
[2017-09-01] MEDS: 1/2 NS 1,000 ML IV SCH (09:26)
--- NOTE | 2017-09-01 11:41 | HOSPPROG ---
Hospitalist Progress Note Assessment/Plan: SBO - Suspect related to chronic opiate use. Failed attempt to clamp NG last night, though has had some small BM's. -SBFT today -re-trial of clamping NG tube if SBFT effective -trial lactulose if above effective -resume aggressive bowel regimen once SBO resolved -s/p relistor Leukocytosis - ?stress reaction. Resolved. Metastatic ovarian cancer - on immunotherapy, followed by Dr. Wood, plans to go to [place] for f/u Chronic pain with continuous opioid dependence - PO meds on hold, prn IV morphine for pain. 3 mg po morphine = 1 mg IV morphine. Her home daily morphine eq's is 45 mg, so will provide up to 15 mg IV morphine, divided as 2-4 mg po q6h prn. -Discussed backing off on morphine dose to help with bowel dysmotility. -add 2 lidoderm patches for LBP -schedule tylenol 1 g q8h Full code DVT PPLX - Lovenox Dispo - cont inpt Subjective: Pt feels ok. Has some back pain, which is chronic, no abdominal pain. NG tube to suction. Had 2 small BM's yesterday. Objective: Vital Signs Temp Pulse Resp BP Pulse Ox 36.7 C 86 14 143/61 H 96 09/01/17 11:35 09/01/17 11:35 09/01/17 11:35 09/01/17 11:35 09/01/17 11:35 Laboratory Results 08/31/17 04:04 08/30/17 05:16 08/31/17 09/01/17 09/02/17 05:59 05:59 05:59 Intake Total 1399 893 Output Total 1250 1000 Balance 149 -107 - Physical Exam Constitutional: no apparent distress Eyes: PERRL Ears, Nose, Mouth, Throat: moist mucous membranes Cardiovascular: regular rate and rhythym, no murmur, rub, or gallop Respiratory: no respiratory distress, clear to auscultation Gastrointestinal: other (soft, nondistended, absent bowel tones) Skin: warm Musculoskeletal: full muscle strength Neurologic: AAOx3 Psychiatric: interacting appropriately ICD10 Worksheet Patient Problems: Problems Problem Status Onset Small bowel obstruction Acute Chest pain Acute Granulosa cell carcinoma Acute Pneumonia Acute
[2017-09-01] MEDS: LIDOCAINE 5% 1 EA PATCH TD SCH (12:17)
--- NOTE | 2017-09-01 12:35 | ASMTCMCOM ---
CM Note CM Note Notes: Reviewed chart regarding discharge plan, pt's progress. Per PT notes, pt would benefit from home care PT and 24 hr supervision. OT rec home vs home care and 24 hr supervision. Pt has previously had [facility]. CM will cont to monitor pt's progress and will fax referral for home care, if indicated. CM avail for any further issues or concerns today. Current discharge plan: Home w/ home care, 24 hr supervision Date Signed: 09/01/2017 12:35 PM Electronically Signed By:Ewa Ambriz RN
[2017-09-01] MEDS: ACETAMINOPHEN 500 MG TAB PO SCH ×2 (15:33→22:16)
[2017-09-01] MEDS: ONDANSETRON 4 MG/2 ML VIAL IVP PRN (16:15)
--- NOTE | 2017-09-01 16:25 | SOAPPROG ---
SOAP Progress Note Assessment/Plan: Assessment/Plan: 81yo F with ovarian cancer and recurrent SBO NG tube - continue to suction today until increased bowel function Failed NG clamp trial yesterday due to nausea. SBFT today Passing flatus and reports 2 BMs yesterday with lactulose and relistor OK to try lyrica with NG clamped. Not sure if enough absorption to be effective Appreciate hospitalists S: less nausea today. Pain controlled. Passed flatus and had BM yesterday, minimal gas today. Significant pain in shoulder overnight - asking if can restart lyrica O: Sitting up in chair, comfortable, NAD, family at bedside No increased WOB NG clamped Min BS, abd softly distended, nontender throughout. Objective: Vital Signs Temp Pulse Resp BP Pulse Ox 36.7 C 86 14 143/61 H 96 09/01/17 11:35 09/01/17 11:35 09/01/17 11:35 09/01/17 11:35 09/01/17 11:35 Laboratory Results 08/31/17 04:04 08/30/17 05:16 08/31/17 09/01/17 09/02/17 05:59 05:59 05:59 Intake Total 1399 893 Output Total 1250 1000 Balance 149 -107 ICD10 Worksheet Patient Problems: Problems Problem Status Onset Small bowel obstruction Acute Chest pain Acute Granulosa cell carcinoma Acute Pneumonia Acute
[2017-09-01] MEDS ORDERED: LACTULOSE 20 GM/30 ML UDCUP PO PRN (16:33)
[2017-09-01] MEDS: PATCH REMOVAL 1 EA PATCH TD SCH (22:17)
[2017-09-01] MEDS: PREGABALIN 100 MG CAP PO SCH (23:10)
[2017-09-02] MEDS: PROMETHAZINE HCL 25 MG/ML INJ IVP PRN (02:22)
[2017-09-02 05:04] LABS: ANION GAP 13 mEq/L (8-16); CALCIUM 7.2 mg/dL (8.5-10.4); CARBON DIOXIDE 24 mEq/l (22-31); CHLORIDE 106 mEq/L (97-110); CREATININE 0.6 mg/dL (0.6-1.0); GLOMERULAR FILTRATION RATE > 60; GLUCOSE 61 mg/dL (70-100); POTASSIUM 3.1 mEq/L (3.5-5.2); SODIUM 143 mEq/L (134-144)
[2017-09-02] MEDS: ACETAMINOPHEN 500 MG TAB PO SCH ×3 (05:05→20:08)
[2017-09-02] MEDS ORDERED: POTASSIUM Cl (KCl) 100 ML IV SCH ×2 (07:30→08:00)
[2017-09-02] MEDS ORDERED: ONDANSETRON DISINTEGRATING 4 MG TAB PO PRN (09:08)
[2017-09-02] MEDS: 1/2 NS 1,000 ML IV SCH (10:41)
[2017-09-02] MEDS: LIDOCAINE 5% 1 EA PATCH TD SCH (10:42)
[2017-09-02] MEDS: PREGABALIN 100 MG CAP PO SCH ×2 (10:42→22:18)
[2017-09-02] MEDS: ENOXAPARIN 40 MG/0.4 ML SYR SC SCH (10:43)
[2017-09-02] MEDS: PANTOPRAZOLE SODIUM 40 MG TAB PO SCH (11:28)
[2017-09-02] MEDS: PANTOPRAZOLE SODIUM 40 MG VIAL IVP SCH (12:24)
[2017-09-02] MEDS: POTASSIUM Cl (KCl) 10 MEQ in NS 100 ML IV SCH ×3 (12:34→18:58)
--- NOTE | 2017-09-02 13:02 | HOSPPROG ---
Hospitalist Progress Note Assessment/Plan: SBO - Suspect related to chronic opiate use. NG tube out. SBFT yesterday effected copious BM's with no e/o obstruction. Hasn't tolerated po yet. -po challenge today -bowel regimen with senna/docusate, prn lactulose -reduce morphine dose -s/p relistor Leukocytosis - ?stress reaction. Resolved. Metastatic ovarian cancer - on immunotherapy, followed by Dr. Wood, plans to go to [place] for f/u Chronic pain with continuous opioid dependence -Decrease morphine to 15 BID -add 2 lidoderm patches for LBP -schedule tylenol 1 g q8h Full code DVT PPLX - Lovenox Dispo - cont inpt, home when taking po Subjective: Pt feels better. NG tube out. No N/V. Had copious stool after SBFT. Objective: Vital Signs Temp Pulse Resp BP Pulse Ox 36.9 C 84 18 147/72 H 97 09/02/17 11:29 09/02/17 11:29 09/02/17 11:29 09/02/17 11:29 09/02/17 11:29 Laboratory Results 08/31/17 04:04 09/02/17 03:58 09/01/17 09/02/17 09/03/17 05:59 05:59 05:59 Intake Total 893 1879 Output Total 1000 401 Balance -107 1478 - Physical Exam Constitutional: no apparent distress Eyes: PERRL Ears, Nose, Mouth, Throat: moist mucous membranes Cardiovascular: regular rate and rhythym Respiratory: no respiratory distress, clear to auscultation Gastrointestinal: normoactive bowel sounds, soft, non-tender abdomen Skin: warm Musculoskeletal: full muscle strength Neurologic: AAOx3 Psychiatric: interacting appropriately ICD10 Worksheet Patient Problems: Problems Problem Status Onset Small bowel obstruction Acute Chest pain Acute Granulosa cell carcinoma Acute Pneumonia Acute
[2017-09-02] MEDS ORDERED: PROMETHAZINE HCL 25 MG TAB PO PRN (13:44)
--- NOTE | 2017-09-02 16:57 | ASMTCMCOM ---
CM Note CM Note Notes: Prior C/M notes said that patient has previously been with [facility] home care. Therapies are recommending Home Care with 15/04 supervision by family. Confirmed this with PT Dean. Notified [facility] that patient does want to have them for Home care. According to Pt family would probably benefit from RN, PT, OT, aide. Case management will continue to follow. Date Signed: 09/02/2017 04:57 PM Electronically Signed By:ANIL Nance
--- NOTE | 2017-09-02 17:55 | SOAPPROG ---
SOAP Progress Note Assessment/Plan: Assessment/Plan: 81 Y F hx ovarian CA, multiple SBO's. SBFT shows easy passage of contrast. NG is out. Soft regular diet this evening. Possibly home in am. S: Had clears--apple juice caused nausea, but thinks it was the food choice, no functional. +gas and maybe small BM vs mostly contrast. O: alert, nad abd soft, +BS 09/02/17 17:54 Objective: Vital Signs Temp Pulse Resp BP Pulse Ox 36.8 C 71 18 129/55 H 97 09/02/17 15:13 09/02/17 15:13 09/02/17 15:13 09/02/17 15:13 09/02/17 15:13 Laboratory Results 08/31/17 04:04 09/02/17 03:58 09/01/17 09/02/17 09/03/17 05:59 05:59 05:59 Intake Total 893 1879 Output Total 1000 401 Balance -107 1478 ICD10 Worksheet Patient Problems: Problems Problem Status Onset Small bowel obstruction Acute Chest pain Acute Granulosa cell carcinoma Acute Pneumonia Acute
[2017-09-02] MEDS: SENNOSIDES/DOCUSATE SODIUM TAB PO SCH ×2 (18:42→22:38)
[2017-09-02] MEDS: LEVOTHYROXINE 25 MCG TAB PO SCH (18:42)
[2017-09-02] MEDS: DULoxetine 60 MG CAP PO SCH (18:43)
[2017-09-02] MEDS ORDERED: POTASSIUM CL 20 MEQ TAB PO ONE (20:38)
[2017-09-02] MEDS ORDERED: LORazepam 1 MG TAB PO SCH (21:00)
[2017-09-02] MEDS ORDERED: AMITRIPTYLINE HCL 25 MG TAB PO SCH (21:00)
[2017-09-02] MEDS: PATCH REMOVAL 1 EA PATCH TD SCH (22:26)
[2017-09-02] MEDS: morphINE SR 15 MG TAB PO SCH (22:37)
[2017-09-03] MEDS: ACETAMINOPHEN 500 MG TAB PO SCH ×2 (06:01→11:07)
[2017-09-03] MEDS: LEVOTHYROXINE 25 MCG TAB PO SCH (06:01)
[2017-09-03] MEDS ORDERED: PANTOPRAZOLE SODIUM 40 MG TAB PO SCH (09:00)
[2017-09-03 09:04] VITALS: BP 136/75; PULSE 87; RESP 17; TEMP 98.8; O2SAT 93
[2017-09-03] MEDS: PREGABALIN 100 MG CAP PO SCH (09:22)
[2017-09-03] MEDS: morphINE SR 15 MG TAB PO SCH (09:23)
[2017-09-03] MEDS: DULoxetine 60 MG CAP PO SCH (09:23)
[2017-09-03] MEDS: PANTOPRAZOLE SODIUM 40 MG TAB PO SCH (09:23)
[2017-09-03] MEDS: SENNOSIDES/DOCUSATE SODIUM TAB PO SCH (09:23)
[2017-09-03] MEDS: LIDOCAINE 5% 1 EA PATCH TD SCH (09:24)
[2017-09-03] MEDS: ENOXAPARIN 40 MG/0.4 ML SYR SC SCH (09:24)
--- NOTE | 2017-09-03 10:00 | SOAPPROG ---
SOAP Progress Note Assessment/Plan: Assessment/Plan: 81 Y F hx ovarian CA, multiple SBO's. Tolerating diet, albeit, small amounts of food. SBFT ok. D/c order in per medicine. Discussed f/u c Olivo. S: No pain. Passing gas. Mild nausea at baseline. O: alert, nad abd soft, +normoactiveBS 09/03/17 09:59 Objective: Vital Signs Temp Pulse Resp BP Pulse Ox 37.1 C 87 17 136/75 H 93 09/03/17 09:00 09/03/17 09:00 09/03/17 09:00 09/03/17 09:00 09/03/17 09:00 Laboratory Results 08/31/17 04:04 09/02/17 03:58 09/02/17 09/03/17 09/04/17 05:59 05:59 05:59 Intake Total 1879 100 Output Total 401 Balance 1478 100 ICD10 Worksheet Patient Problems: Problems Problem Status Onset Small bowel obstruction Acute Chest pain Acute Granulosa cell carcinoma Acute Pneumonia Acute
--- NOTE | 2017-09-03 10:55 | PDIAF ---
- Diagnosis Diagnosis: metastatic ovarian cancer Code Status: Full Code - Medication Management Discharge Medications: Medications to Continue on Transfer Amitriptyline HCl [Elavil] 25 mg PO HS 08/29/17 [Last Taken 08/28/17] DULoxetine [Cymbalta 60 MG (*)] 60 mg PO DAILY 08/29/17 [Last Taken 08/29/17 09: 00] LORazepam [Ativan (*)] 1 mg PO HS 08/29/17 [Last Taken 08/28/17] Levothyroxine [Synthroid 25 mcg (*)] 25 mcg PO DAILY06 08/29/17 [Last Taken Unknown] Nivolumab [Opdivo] 480 mg IV Q30D 08/29/17 [Last Taken Unknown] Omeprazole 40 mg PO DAILY 08/29/17 [Last Taken 08/29/17 09:00] Ondansetron Odt [Zofran Odt 4 mg (*)] 4 - 8 mg PO Q4 PRN 08/29/17 [Last Taken ] Pregabalin [LYRICA] 100 mg PO BID 08/29/17 [Last Taken 08/29/17 09:00] Promethazine HCl [Phenergan 25mg (*)] 6.25 - 12.5 mg PO BID PRN 08/29/17 [Last Taken 08/25/17] Acetaminophen [Tylenol ES 500 mg (*)] 1,000 mg PO Q8H #90 tab 09/03/17 [Last Taken Unknown] Lidocaine 5% [Lidoderm 5% Patch (*)] 2 ea TD DAILY #60 patch 09/03/17 [Last Taken Unknown] Pantoprazole Sodium [Protonix 40mg (*)] 40 mg PO DAILY #30 tab 09/03/17 [Last Taken Unknown] Sennosides/Docusate Sodium [Senokot-S] 2 each PO BID #120 tab 09/03/17 [Last Taken Unknown] morphINE SR [Ms Contin/Oramorph 15 mg (*)] 15 mg PO BID #20 tab 09/03/17 [Last Taken Unknown] Discharge Medications: Refer to the Discharge Home Medication list for PRN reason. - Orders Services needed: Home Care, Registered Nurse, Certified Township Supervisor, Physical Therapy, Occupational Therapy Home Care Face to Face: I certify that this patient was under my care and that I had the required [id number] encounter meeting the encounter requirements on the discharge day. My findings support the fact that the patient is homebound as defined in Home Care Face to Face Continued: CMS Chapter 7 Medicare Benefits Manual 30.1.1 , The condition of the patient is such that there exists a normal inability to leave home and consequently, leaving home would require a considerable and taxing effort. Isolation Type: None Diet Recommendation: no restrictions on diet - Follow Up Care Current Providers and Referrals: Tan Olivo MD [Medical Doctor] - follow up in 2 weeks Latha Payne MD [Primary Care Provider] - As per Instructions
--- NOTE | 2017-09-03 11:04 | ASMTCMCOM ---
CM Note CM Note Notes: Spoke with patient, spouse and son about recommendations for Home Care and 15/04 family support for patient. They said they would like [facility] home improvement advisor, PT, OT, and aide. Informed them that [facility] will call tonight to schedule time to come. They are aware that they will receive a call from [facility] to schedule time to come on 09/04/2017. Date Signed: 09/03/2017 11:04 AM Electronically Signed By:ANIL Nance
--- NOTE | 2017-09-03 11:09 | ASDISCHSUM ---
Discharge Information Plan Status:Home with Home Health Medically Cleared to Leave:09/02/2017 Discharge Date:09/02/2017 CM D/C Disposition:Home Health Service ADT D/C Disposition:Home, Routine, Self-Care Projected Discharge Date:09/03/2017 12:00 PM Transportation at D/C:Family Discharge Delay Reason: Follow-Up Date:09/03/2017 12:00 PM Discharge Slot: Final Diagnosis:SBO, Metastatic ovarian Cancer Placement Information Patient Contact Information Contact Name:ASPEN Relationship: Address:[address] City:[place] Alternate Phone: [facility]/Zip Code:[place] [address] Email: Financial Information Financial Class: Primary Plan Desc:MEDICARE INPATIENT Primary Plan Number:[id number] Secondary Plan Desc:[employer]/MDR SUPPLEMENT Secondary Plan Number:[id number] Assessment Information [facility] CM Progress Note CM Note CM Note Notes: 08/30/2017 Case Management Note. Fellow Phosphoric Acid Operator met with pt. Pt has strong family support. She lives with her and son. Family has cancelled a planned trip to [facility]. Pt d/c needs are unclear at this time. Case Management d/c poc: TBD Case Management will follow. Date Signed: 08/30/2017 05:05 PM Electronically Signed By:Cathie David RN [facility] CM Progress Note CM Note CM Note Notes: PT still pending. OT recommending home vs homecare. Pt has had [facility] in the past. Date Signed: 08/31/2017 04:06 PM Electronically Signed By:ANIL Murray [facility] CM Progress Note CM Note CM Note Notes: Reviewed chart regarding discharge plan, pt's progress. Per PT notes, pt would benefit from home care PT and 24 hr supervision. OT rec home vs home care and 24 hr supervision. Pt has previously had [facility]. CM will cont to monitor pt's progress and will fax referral for home care, if indicated. CM avail for any further issues or concerns today. Current discharge plan: Home w/ home care, 24 hr supervision Date Signed: 09/01/2017 12:35 PM Electronically Signed By:Ewa Ambriz RN [facility] CM Progress Note CM Note CM Note Notes: Prior C/M notes said that patient has previously been with [facility] home care. Therapies are recommending Home Care with 15/04 supervision by family. Confirmed this with ABEL Moran. Notified [facility] that patient does want to have them for Home care. According to Pt family would probably benefit from RN, PT, OT, aide. Case management will continue to follow. Date Signed: 09/02/2017 04:57 PM Electronically Signed By:ANIL Nance [facility] CM Progress Note CM Note CM Note Notes: Spoke with patient, spouse and son about recommendations for Home Care and 15/04 family support for patient. They said they would like [facility] home sales consultant, PT, OT, and aide. Informed them that [facility] will call lisy to schedule time to come. They are aware that they will receive a call from [facility] to schedule time to come on 09/04/2017. Date Signed: 09/03/2017 11:04 AM Electronically Signed By:ANIL Nance Intervention Information
--- NOTE | 2017-09-03 20:17 | GDS ---
[f rep st] DISCHARGE SUMMARY DISCHARGE DIAGNOSES: 1. Recurrent small-bowel obstruction. 2. Metastatic ovarian cancer. 3. Chronic pain with continuous opioid dependence. CONSULTANTS: Dr. Turner Olivo, Surgery. HISTORY OF DETAILS: Please see the history and physical dated August 29, 2017. In brief, the patie melinda is an 81-year-old female with a history of metastatic ovarian cancer diagnosed in 1979. She has u ndergone 5 debulking surgeries and has struggled with recurrent small bowel obstruction over the past 2 years. Presents to the emergency department with abdominal pain. She is admitted to the hospital for recurrent small-bowel obstruction. HOSPITAL COURSE: Patient was admitted to the Cancer Care Unit. Conservative management was pursued. She received an NG tube. Surgery consulted and did not feel she warranted surgery. She ultimately underwent an upper GI study, which affected copious output of stool and was therapeutic in the resol ution of her bowel obstruction with contrast passing into the colon within 60 minutes. She continued to have stool. Her NG tube was clamped, and this was able to be removed. She was slowly able to in crease her diet. There has been some concern that her chronic morphine use is contributory to her re current bowel obstructions, and her dose was decreased to 50 mg twice daily. She was given a dose of Relistor for opioid-induced constipation, and she will be discharged on a bowel regimen with docusat e, senna, and p.r.n. lactulose, milk of magnesia, and MiraLAX. DISPOSITION: Patient is discharged home in stable condition. FOLLOWUP: 1. Latha Payne, Primary Care. 2. Dr. Turner Olivo, General Surgery. DISCHARGE MEDICATIONS: Please see [facility] for completed outpatient medication list. New medications on discharge include Lidoderm patch 2 daily, #60, no refills; Protonix 40 mg p.o. fabiana ly, #30, no refills; Tylenol 1000 mg p.o. q.8 hours, #90, no refills. Changed medications include mo rphine dose is decreased to 50 mg p.o. b.i.d. from a total of 45 mg daily. She should continue her s randi docusate, p.r.n. MiraLAX, milk of Mag, and lactulose for ongoing bowel regimen in the setting of chronic opioid use. /[id number]/MODL
== END 2017-09-03 11:32 | disposition home or self-care (01) | DRG 389 ==
LOC: F1N 21:07
PROVIDERS: ADMIT Internal Medicine; ATTEND Internal Medicine
DX: K56.609 Unspecified intestinal obstruction, unspecified as to partial versus complete obstruction (principal); F11.20 Opioid dependence, uncomplicated; C79.89 Secondary malignant neoplasm of other specified sites; G89.29 Other chronic pain; Z72.0 Tobacco use; Z85.43 Personal history of malignant neoplasm of ovary; Z90.710 Acquired absence of both cervix and uterus
CPT/HCPCS: 96374; 97116-GP; 97161-GP; 97165-GO; 97530-GP; 97535-GO; G8978-GP-CJ; G8979-GP-CI; G8987-GO-CI; G8988-GO-CI; J1650; J1885; J2060; J2212; J2405; J2550; J3010

== ENCOUNTER 2017-10-22 08:04 | Observation (INO) | payer OTHER, MEDICARE ==
--- NOTE | 2017-10-22 08:07 | EDPHY ---
HPI/HX/ROS/PE/MDM Narrative: CHIEF COMPLAINT: Nausea, vomiting HPI: The patient is an 81 y/o female with a history of ovarian cancer and multiple bowel obstructions arriving via EMS for nausea, vomiting, and abdominal pain, worsening overnight. She became nauseated and started vomiting last night. Overnight she developed worsening abdominal pain. Her family reports this is different than previous bowel obstructions. EMS reports she was diaphoretic and hot with a possible fever. In the ED she has no fever but continues to vomit. Her last bowel movement was this morning. REVIEW OF SYSTEMS: Aside from elements discussed in the HPI, a comprehensive 10-point review of systems was reviewed and is negative. PMH: Ovarian cancer, multiple small bowel obstructions SOCIAL HISTORY: Lives in [place], son and at bedside, retired PHYSICAL EXAM: General:Patient is alert, in no acute distress. ENT:Eyes are normal to inspection. ENT inspection normal. Neck: Normal inspection. Full range of motion. Respiratory:No respiratory distress. Breath sounds normal bilaterally. Cardiovascular: Regular rate and rhythm. Strong peripheral pulses. Normal cap refill. Abdomen:Diffuse abdominal tenderness. There are no peritoneal signs. There are normal bowel sounds. Back: Normal to inspection. No tenderness to palpation. Skin: Normal color. No rash. Warm and dry. Extremities: Normal appearance. Full range of motion. Neuro: Oriented x3. Normal motor function. Normal sensory function. ED Course: Study: X-ray of the abdomen Indication: Abdominal pain, nausea, vomiting Results: X-ray of the abdomen was obtained. The results of the study are: indicative of possible obstruction The study was read by the radiologist, Dr. Brody. I viewed the images myself on the PACS system. Study: CT of the abdomen Indication: Abdominal pain, nausea, vomiting Results: CT scan of the abdomen was obtained. The results of the study are: small bowel obstruction or ileus The study was read by the radiologist, Dr. Brody. I viewed the images myself on the PACS system. The patient presents with nausea, vomiting, and abdominal pain, worsening overnight. She has a long history of ovarian cancer with multiple abdominal surgeries, and multiple small bowel obstructions. Plan for flu swab, labs, blood culture, and CT. She is difficult to get an IV into so the possibility of PICC line or central line placement will be evaluated if an IV cannot be placed. A CT with contrast is not an option due to the patient's allergy to contrast. 8:46 AM- An IV was able to be established an a small amount of blood was drawn. The blood was sent for a lactic acid test. More blood was drawn and sent 9:49 AM- The patient was negative for influenza. CT results are pending. 10:03 AM- The patient's CT indicates either a small bowel obstruction or an ileus. I have paged her surgeon for evaluation. 10:28 AM- I spoke with her surgeon, Dr. Olivo, regarding admission for this patient. He advises me to admit her to the hospitalist and discuss NG tube placement. I informed her of the results of her workup. She refuses NG tube. 10:49 AM- I spoke with the hospitalist service regarding admission for this patient. They agree to admit. Dr. North will be the admitting physician. - Data Points Imaging Results: Imaging Impressions Abdomen X-Ray 10/22/17 08:09 Impression: 1. Abnormal bowel gas pattern suggests obstruction. Fecal material in the colon suggests that the obstruction may be partial. 2. Basilar opacities are probably atelectasis. Pulmonary nodules are again noted. Laboratory Results: Laboratory Results 10/22/17 10:13 10/22/17 10:13 10/22/17 10/22/17 10/22/17 10:13 10:13 08:45 WBC 10.90 10^3/uL H 10^3/uL (3.80-9.50) RBC 4.39 10^6/uL 10^6/uL (4.18-5.33) Hgb 11.9 g/dL L g/dL (12.6-16.3) Hct 36.7 % L % (38.0-47.0) MCV 83.6 fL fL (81.5-99.8) MCH 27.1 pg L pg (27.9-34.1) MCHC 32.4 g/dL g/dL (32.4-36.7) RDW 17.1 % H % (11.5-15.2) Plt Count 173 10^3/uL 10^3/uL (150-400) MPV 12.0 fL H fL (8.7-11.7) Neut % (Auto) 87.9 % H % (39.3-74.2) Lymph % (Auto) 4.7 % L % (15.0-45.0) [place] % (Auto) 6.6 % % (4.5-13.0) Eos % (Auto) 0.2 % L % (0.6-7.6) Baso % (Auto) 0.3 % % (0.3-1.7) Nucleat RBC Rel Count 0.0 % % (0.0-0.2) Absolute Neuts (auto) 9.59 10^3/uL H 10^3/uL (1.70-6.50) Absolute Lymphs (auto) 0.51 10^3/uL L 10^3/uL (1.00-3.00) Absolute Monos (auto) 0.72 10^3/uL 10^3/uL (0.30-0.80) Absolute Eos (auto) 0.02 10^3/uL L 10^3/uL (0.03-0.40) Absolute Basos (auto) 0.03 10^3/uL 10^3/uL (0.02-0.10) Absolute Nucleated RBC 0.00 10^3/uL 10^3/uL (0-0.01) Immature Gran % 0.3 % % (0.0-1.1) Immature Gran # 0.03 10^3/uL 10^3/uL (0.00-0.10) VBG Lactic Acid 1.2 mmol/L mmol/L (0.7-2.1) Sodium 141 mEq/L mEq/L (135-145) Potassium 4.3 mEq/L mEq/L (3.5-5.2) Chloride 103 mEq/L mEq/L (97-110) Carbon Dioxide 23 mEq/l mEq/l (22-31) Anion Gap 15 mEq/L mEq/L (8-16) BUN 8 mg/dL mg/dL (7-23) Creatinine 0.7 mg/dL mg/dL (0.6-1.0) Estimated GFR > 60 Glucose 108 mg/dL H mg/dL (70-100) Calcium 8.8 mg/dL mg/dL (8.5-10.4) Total Bilirubin 0.6 mg/dL mg/dL (0.1-1.4) Conjugated Bilirubin 0.4 mg/dL mg/dL (0.0-0.5) Unconjugated Bilirubin 0.2 mg/dL mg/dL (0.0-1.1) AST 25 IU/L IU/L (14-46) ALT 21 IU/L IU/L (9-52) Alkaline Phosphatase 99 IU/L IU/L (38-126) Total Protein 6.9 g/dL g/dL (6.3-8.2) Albumin 3.7 g/dL g/dL (3.5-5.0) Lipase 20 IU/L L IU/L (23-300) Nasal Influenza A PCR Nasal Influenza B PCR 10/22/17 08:30 WBC RBC Hgb Hct MCV MCH MCHC RDW Plt Count MPV Neut % (Auto) Lymph % (Auto) [place] % (Auto) Eos % (Auto) Baso % (Auto) Nucleat RBC Rel Count Absolute Neuts (auto) Absolute Lymphs (auto) Absolute Monos (auto) Absolute Eos (auto) Absolute Basos (auto) Absolute Nucleated RBC Immature Gran % Immature Gran # VBG Lactic Acid Sodium Potassium Chloride Carbon Dioxide Anion Gap BUN Creatinine Estimated GFR Glucose Calcium Total Bilirubin Conjugated Bilirubin Unconjugated Bilirubin AST ALT Alkaline Phosphatase Total Protein Albumin Lipase Nasal Influenza A PCR NEGATIVE FOR FLU A (NEGATIVE) Nasal Influenza B PCR NEGATIVE FOR FLU B (NEGATIVE) Medications Given: Discontinued Medications Fentanyl (Sublimaze) 50 mcg IVP EDNOW ONE Stop: 10/22/17 08:47 Last Admin: 10/22/17 08:50 Dose: 50 mcg Fentanyl (Sublimaze) 50 mcg IVP EDNOW ONE Stop: 10/22/17 10:52 Last Admin: 10/22/17 11:03 Dose: 50 mcg Sodium Chloride (Ns) 1,000 mls @ 0 mls/hr IV EDNOW ONE; Wide Open PRN Reason: Protocol Stop: 10/22/17 08:09 Last Admin: 10/22/17 08:50 Dose: 1,000 mls Ketorolac Tromethamine (Toradol) 30 mg IVP EDNOW ONE Stop: 10/22/17 09:21 Last Admin: 10/22/17 09:30 Dose: 30 mg Metoclopramide HCl (Reglan Injection) 10 mg IM EDNOW ONE Stop: 10/22/17 08:39 Last Admin: 10/22/17 08:55 Dose: Not Given Metoclopramide HCl (Reglan Injection) 10 mg IVP EDNOW ONE Stop: 10/22/17 08:46 Last Admin: 10/22/17 08:50 Dose: 10 mg General Initial Vital Signs: Initial Vital Signs Temperature (C) 36.5 C 10/22/17 08:10 Heart Rate 81 10/22/17 08:10 Respiratory Rate 16 10/22/17 08:10 Blood Pressure 140/83 H 10/22/17 08:10 O2 Sat (%) 94 10/22/17 08:10 O2 Delivery Mode Nasal Cannula O2 (L/minute) 3 Allergies/Adverse Reactions: Iodinated Contrast- Oral and IV Dye Allergy (Unknown, Unverified 09/03/17 14:11) Dyspnea hydromorphone Allergy (Verified 06/18/17 18:54) Rash IODINE Allergy (Severe, Uncoded 12/10/16 16:49) Dyspnea DAISIES Allergy (Uncoded 12/10/16 16:49) Other-Enter Comments tape Allergy (Uncoded 12/10/16 16:49) Home Medications: Medication Instructions Recorded Amitriptyline HCl [Elavil] 25 mg PO HS 08/29/17 DULoxetine [Cymbalta 60 MG (*)] 60 mg PO DAILY 08/29/17 LORazepam [Ativan (*)] 1 mg PO HS 08/29/17 Nivolumab [Opdivo] 480 mg IV Q30D 08/29/17 Omeprazole 40 mg PO DAILY 08/29/17 Ondansetron Odt [Zofran Odt 4 mg 4 - 8 mg PO Q4 PRN 08/29/17 (*)] Pregabalin [LYRICA] 100 mg PO BID 08/29/17 Promethazine HCl [Phenergan 25mg 6.25 - 12.5 mg PO BID PRN 08/29/17 (*)] Pantoprazole Sodium [Protonix 40mg 40 mg PO DAILY #30 tab 09/03/17 (*)] Sennosides/Docusate Sodium 2 each PO BID #120 tab 09/03/17 [Senokot-S] Acetaminophen [Tylenol ES 500 mg 1,000 mg PO Q8H PRN 10/22/17 (*)] Lactulose 15 ml PO BID 10/22/17 Levothyroxine [Synthroid 50 mcg 50 mcg PO DAILY06 10/22/17 (*)] Lidocaine 5% [Lidoderm 5% Patch 1 ea TD DAILY PRN 10/22/17 (*)] morphINE SR [Ms Contin/Oramorph 15 30 mg PO BID 10/22/17 mg (*)] Departure - Departure Disposition: [facility] Inpatient Acute Clinical Impression: Small bowel obstruction Condition: Fair Report Scribed for: Kendall James Report Scribed by: Carissa Mccray Date of Report: 10/22/17 Time of Report: 08:07 Physician Review and Approval Statement: Portions of this note were transcribed by an ED scribe. I personally performed the history, physical exam, and medical decision making; and confirm the accuracy of the information in the transcribed note.
[2017-10-22] MEDS ORDERED: NS 1,000 ML IV ONE (08:08)
[2017-10-22] MEDS ORDERED: METOCLOPRAMIDE 10 MG/2 ML VIAL IM ONE (08:38)
[2017-10-22] MEDS ORDERED: METOCLOPRAMIDE 10 MG/2 ML VIAL IVP ONE (08:45)
[2017-10-22] MEDS ORDERED: fentaNYL 100 MCG/2 ML INJ IVP ONE ×2 (08:46→10:51)
[2017-10-22] MEDS ORDERED: KETOROLAC 30 MG/1 ML SDV IVP ONE (09:20)
[2017-10-22 10:21] LABS: PLATELET COUNT 173 10^3/uL (150-400)
--- NOTE | 2017-10-22 11:48 | ASMTLACE ---
ASHU Acuity / Level of Answers: Yes Care: Did the patient have an inpatient admission? Comorbidities - select Answers: Any tumor (including all that apply lymphoma or leukemia) # of Emergency department Answers: 1-2 visits in the last 6 months Score: 6 Date Signed: 10/22/2017 11:47 AM Electronically Signed By:Kateryna Heck RN
--- NOTE | 2017-10-22 12:48 | GCON ---
[f rep st] CONSULTATION GENERAL SURGERY CONSULTATION HISTORY OF PRESENT ILLNESS: The patient is a very pleasant 81-year-old female with a long history of ovarian cancer and multiple bowel obstructions. She presented to the emergency department with her son and after complaints of severe abdominal pain, associated with nausea. She did have a leandro wel movement early this morning and passed some gas but nothing since she has been in the emergency d epartment. She has vomited and denies fever. Of note, patient has surgery planned at the [facility] on November 13 of this year for debulking. Her son says she has tumor along her bowel and bladder that they plan to remove. Also of note, her was recently ill with fatigue and diarrhea but has been better over the last 24-48 hours. PAST MEDICAL HISTORY: Includes ovarian cancer with total abdominal hysterectomy and bilateral salpin go-oophorectomy with omentectomy. She has also had radiation therapy for this. Per chart review, ivanna medina has had 5 separate abdominal surgeries, as well as a back fusion surgery. MEDICATIONS: Include morphine, omeprazole, promethazine, Zofran, duloxetine, amitriptyline, pregabal in, and vitamin D. ALLERGIES: Iodine and hydromorphone. SOCIAL HISTORY: Patient and her are retired and present with her son, who has been very invo lved in her care. She is a nonsmoker. REVIEW OF SYSTEMS: Negative aside from that in the HPI. PHYSICAL EXAMINATION: GENERAL: A somewhat chronically ill-appearing 81-year-old female in no acute distress. HEENT: Mucous membranes moist. Sclerae are anicteric. CHEST: No work of breathing. Cl ear to auscultation bilaterally. CARDIAC: Regular rate and rhythm. ABDOMEN: Softly distended with no rebound or guarding. Nontender. EXTREMITIES: Warm and dry. SPECIAL TESTS: CT scan of the abdomen and pelvis was reviewed, and radiology interpretation describe s it as a partial small bowel obstruction in the mid ileum, either due to focal enteritis or a perito tanna implant versus adynamic ileus. There is progression of metastatic disease, with increased size of pulmonary nodules, a lytic lesion in the left ileum, and stable lesions in the dome of the liver. Please see report for full details. IMPRESSION: This is an 81-year-old female with ovarian cancer and history of small bowel obstruction s, now with likely recurrent bowel obstruction and less likely some type of infectious gastroenteriti s. PLAN: Patient is going to be admitted to the hospital service. IV access is being attempted now. S he has needed PICC lines in the past. We will provide hydration and supportive care, including antie metics and pain medicines as needed. I will order abdominal x-ray for tomorrow. Family is hoping to avoid surgery now and be able to have surgery at the [facility] as planned. I agree an NG tube is not necessary now, but if she does continue to vomit, I would suggest that. I will also discuss it w ith Dr. Olivo, who is aware that the patient is here. /[id number]/MODL
[2017-10-22] MEDS ORDERED: PROMETHAZINE HCL 25 MG/ML INJ IVP PRN (13:17)
[2017-10-22] MEDS ORDERED: ONDANSETRON 4 MG/2 ML VIAL IVP PRN (13:58)
[2017-10-22] MEDS ORDERED: ONDANSETRON DISINTEGRATING 4 MG TAB PO PRN (13:58)
[2017-10-22] MEDS ORDERED: LIDOCAINE 5% 1 EA PATCH TD PRN (14:02)
--- NOTE | 2017-10-22 14:39 | GHP ---
[f rep st] HISTORY AND PHYSICAL DATE OF ADMISSION: 10/22/2017 HISTORY OF PRESENT ILLNESS: The patient is an 81-year-old female with a history of longstanding hist ory of ovarian cancer, admissions for small-bowel obstruction, presents with an episode of abdominal pain and nausea. She woke up this morning. She ate crackers. She had a normal bowel movement, and she experienced some abdominal pain with nausea and dry heaves. Her has been sick with a don rrheal illness over the last couple of days. She did not have malaise or myalgias when I asked her, although her family mentioned that she said she had not been feeling well over the last couple of day s. She has not had fever. She has not had chills. She has not had cough or shortness of breath. She is due for a debulking surgery at the [facility] here in about 3 weeks' time. She had previousl y been on nivolumab which has been discontinued because it was no longer effective. REVIEW OF SYSTEMS: Complete 10-point review of systems conducted. Negative except as noted in the H PI. PAST MEDICAL HISTORY: 1. Ovarian cancer diagnosed in 1979. She has had 5 surgeries. 2. Recurrent small-bowel obstructions. ALLERGIES: IV Dilaudid, IV dye. HOME MEDICATIONS: Tylenol, amitriptyline, duloxetine, lactulose, levothyroxine, lorazepam, morphine sustained release 30 b.i.d., nivolumab, although it sounds like this has been discontinued, ondansetr on, pantoprazole, pregabalin, promethazine, senna/docusate, lidocaine patch. SOCIAL HISTORY: She lives with her here in [place]. Her children are involved in her care. She is nonsmoker, nondrinker. FAMILY HISTORY: Parents . PHYSICAL EXAMINATION: VITAL SIGNS: Temp 36.5, blood pressure 140/83, pulse 81, breathing 16 times a minute, 94% on room air. GENERAL: In no acute distress. HEENT: Sclerae anicteric. Oropharynx cl ear. Mucous membranes moist. NECK: Supple without lymphadenopathy or JVD. LUNGS: Clear to auscul tation bilaterally. HEART: S1, S2, not tachycardic. ABDOMEN: Soft. Bowel sounds are normoactive. There is really no distention. There is no rebound or guarding. LOWER EXTREMITIES: Without edema . Calves nontender. SKIN: Without rash. NEUROLOGIC: Nonfocal. LABORATORY/IMAGING DATA: White count 10.9, hematocrit 36.7. Platelets are 173,000. Venous lactate is 1.2. Sodium 141, potassium 4.3, chloride 103, bicarb 23, BUN 8, creatinine 0.7, glucose 108. LFT s normal. Lipase 20. She is influenza negative. Abdominal x-ray interpreted by me shows air-fluid levels consistent with ileus versus small-bowel obstruction. Chest x-ray is clear. Abdominal, pelvi s CT shows partial small-bowel obstruction in the mid ilium due to focal enteritis or peritoneal impl ant versus adynamic ileus, progression of metastatic disease based on increased pulmonary nodules, ly tic lesion in the left ilium, and stable lesion in the dome. I have discussed the case with Dr. Nick James as well as Patsy Zavala of general surgery. ASSESSMENT/PLAN: This is an 81-year-old female with small bowel obstruction. 1. Small-bowel obstruction. There exists a possibility that this is a viral infection. However, I think given her absence of malaise as I understand it, I think it is more likely to be a mild small b owel obstruction. She already has relatively normal bowel sounds and improved symptoms. I will admit her under observation. N.p.o., IV fluids, IV pain medicines, and IV antiemetics. 2. Continuous narcotic use. The patient is on morphine sulfate Contin for pain relief. I will give her 4 mg of morphine intravenous q.4 hours scheduled and some p.r.n.'s. She is at low risk for with drawal given the relatively low dose of long-acting medicine she takes. 3. History of ovarian cancer. She appears to have progressive disease. She will have the debulking surgery at [facility] in 3 weeks. I see no contraindication to that. 4. Prophylaxis. Pharmacologic prophylaxis is indicated with low-molecular heparin. DISPOSITION: Observation status. /[id number]/MODL
[2017-10-22] MEDS: NS 1,000 ML IV SCH (17:24)
--- NOTE | 2017-10-22 17:33 | SOAPPROG ---
MIGUE Progress Note Assessment/Plan: Assessment: Patient is stable with possible SBO but x-rays appear more like constipation from her pain medicine Plan: Consider cathartics in the a.m. 10/22/17 17:32 Objective: Vital Signs Temp Pulse Resp BP Pulse Ox 36.5 C 83 16 128/60 H 95 10/22/17 15:32 10/22/17 15:32 10/22/17 15:32 10/22/17 15:32 10/22/17 15:32 10/21/17 10/22/17 10/23/17 05:59 05:59 05:59 Intake Total 1000 Balance 1000 ICD10 Worksheet Patient Problems: Problems Problem Status Onset Small bowel obstruction Acute Chest pain Acute Granulosa cell carcinoma Acute Pneumonia Acute
[2017-10-22] MEDS: PANTOPRAZOLE SODIUM 40 MG VIAL IVP SCH (18:21)
[2017-10-22] MEDS ORDERED: LORazepam 2 MG/ML INJ IVP SCH (21:00)
[2017-10-23] MEDS ORDERED: MELATONIN 3 MG TAB PO PRN (00:50)
[2017-10-23] MEDS: NS 1,000 ML IV SCH ×2 (01:17→09:23)
[2017-10-23 06:05] LABS: PLATELET COUNT 128 10^3/uL (150-400)
[2017-10-23] MEDS ORDERED: ENOXAPARIN 40 MG/0.4 ML SYR SC SCH (09:00)
[2017-10-23] MEDS: PANTOPRAZOLE SODIUM 40 MG VIAL IVP SCH (09:25)
[2017-10-23] MEDS ORDERED: ACETAMINOPHEN 500 MG TAB PO PRN (09:36)
[2017-10-23] MEDS ORDERED: PROMETHAZINE HCL 25 MG TAB PO PRN (09:36)
[2017-10-23] MEDS ORDERED: ONDANSETRON DISINTEGRATING 4 MG TAB PO PRN (09:36)
[2017-10-23] MEDS ORDERED: morphINE SR 15 MG TAB PO SCH (09:45)
[2017-10-23] MEDS ORDERED: SENNOSIDES/DOCUSATE SODIUM TAB PO SCH (09:45)
[2017-10-23] MEDS ORDERED: LEVOTHYROXINE 50 MCG TAB PO SCH (09:45)
[2017-10-23] MEDS ORDERED: PREGABALIN 100 MG CAP PO SCH (09:45)
[2017-10-23] MEDS ORDERED: DULoxetine 60 MG CAP PO SCH (09:45)
[2017-10-23] MEDS ORDERED: LACTULOSE 20 GM/30 ML UDCUP PO SCH (10:15)
--- NOTE | 2017-10-23 10:23 | ASMTCASEMG ---
Living Arrangements What is your living Answers: With Spouse arrangement? Who do you live with? Type Of Residence What kind of residence do Answers: House you live in? Discharge Plan Comments Coordination Status Comments Notes: Pt is a 81 y/o female admitted for a small bowel obstruction. Needs are TBD at this time. Therapies have been ordered and awaiting recommendations. CM to follow. Plan: TBD Date Signed: 10/23/2017 10:23 AM Electronically Signed By:WILLIAM Orozco
[2017-10-23] MEDS ORDERED: POLYETHYLENE GLYCOL 3350 17 GM PKT PO SCH (11:15)
--- NOTE | 2017-10-23 11:24 | HOSPPROG ---
Hospitalist Progress Note Assessment/Plan: 81 yo F well known to me w improved sbo adat miralax home today see dc summary Subjective: abdomen xray improved (interp by me) Objective: Vital Signs Temp Pulse Resp BP Pulse Ox 36.7 C 100 16 136/63 H 96 10/23/17 07:57 10/23/17 07:57 10/23/17 07:57 10/23/17 07:57 10/23/17 07:57 Laboratory Results 10/23/17 05:00 10/23/17 05:00 10/22/17 10/23/17 10/24/17 05:59 05:59 05:59 Intake Total 1000 Balance 1000 - Physical Exam Constitutional: no apparent distress, appears nourished Eyes: PERRL, anicteric sclera Ears, Nose, Mouth, Throat: moist mucous membranes, hearing normal Cardiovascular: regular rate and rhythym, no murmur, rub, or gallop Respiratory: no respiratory distress, no rales or rhonchi Gastrointestinal: normoactive bowel sounds, soft, non-tender abdomen, No guarding, No rebound Genitourinary: no bladder fullness, No forbes in urethra Skin: warm Musculoskeletal: full muscle strength, no muscle tenderness Neurologic: AAOx3 ICD10 Worksheet Patient Problems: Problems Problem Status Onset Small bowel obstruction Acute Chest pain Acute Granulosa cell carcinoma Acute Pneumonia Acute
--- NOTE | 2017-10-23 11:47 | GDS ---
[f rep st] DISCHARGE SUMMARY DISCHARGE DIAGNOSES: 1. Possible small bowel obstruction versus ileus versus constipation. 2. Abdominal pain. 3. Chronic pain on continuous narcotics. 4. Longstanding ovarian cancer. Scheduled for debulking procedure at [facility]. HOSPITAL COURSE: Please see admission history and physical by Dr. Vaughn North. The patient prese nted with some abdominal pain, nausea, and dry heaves. She had abdominal x-ray suggestive of small b owel obstruction. This is similar to previous presentations, albeit more mild in nature. There has been a viral gastroenteritis going around her family. She has had nausea but no vomiting and no diar inge, so this is felt less likely. She had abdominal films. She was seen by Surgery, who felt this was possible constipation versus SBO. On the first hospital day, her exam is improved. Her film was improved and she was amenable to discharge home. She was given a dose of MiraLAX and her diet was a dvanced. If she tolerates that, she will go home. /[id number]/MODL
[2017-10-23 11:53] VITALS: BP 151/60; PULSE 92; RESP 18; TEMP 98.4; O2SAT 95
--- NOTE | 2017-10-23 12:58 | ASMTCMCOM ---
CM Note CM Note Notes: Spoke w/pt re; dc with home care. Pt agrees and has used [facility] in the past, CM notified Mariaa at [facility] HC. DC Plan: [facility] ([place]) Date Signed: 10/23/2017 12:57 PM Electronically Signed By:Katarzyna Langford RN
--- NOTE | 2017-10-23 13:08 | PDIAF ---
- Diagnosis Diagnosis: sbo Code Status: Full Code - Medication Management Discharge Medications: Medications to Continue on Transfer Amitriptyline HCl [Elavil] 25 mg PO HS 08/29/17 [Last Taken 10/21/17] DULoxetine [Cymbalta 60 MG (*)] 60 mg PO DAILY 08/29/17 [Last Taken 10/21/17] LORazepam [Ativan (*)] 1 mg PO HS 08/29/17 [Last Taken 10/21/17] Omeprazole 40 mg PO DAILY 08/29/17 [Last Taken 08/29/17 09:00] Ondansetron Odt [Zofran Odt 4 mg (*)] 4 - 8 mg PO Q4 PRN 08/29/17 [Last Taken ] Pregabalin [LYRICA] 100 mg PO BID 08/29/17 [Last Taken 10/21/17 21:00] Promethazine HCl [Phenergan 25mg (*)] 6.25 - 12.5 mg PO BID PRN 08/29/17 [Last Taken 10/21/17 21:00] Pantoprazole Sodium [Protonix 40mg (*)] 40 mg PO DAILY #30 tab 09/03/17 [Last Taken 10/21/17] Sennosides/Docusate Sodium [Senokot-S] 2 each PO BID #120 tab 09/03/17 [Last Taken 10/21/17 21:00] Acetaminophen [Tylenol ES 500 mg (*)] 1,000 mg PO Q8H PRN 10/22/17 [Last Taken Unknown] Lactulose 15 ml PO BID 10/22/17 [Last Taken 10/21/17 21:00] Levothyroxine [Synthroid 50 mcg (*)] 50 mcg PO DAILY06 10/22/17 [Last Taken ] Lidocaine 5% [Lidoderm 5% Patch (*)] 1 ea TD DAILY PRN 10/22/17 [Last Taken Unknown] morphINE SR [Ms Contin/Oramorph 15 mg (*)] 30 mg PO BID 10/22/17 [Last Taken 21:00] Polyethylene Glycol 3350 [Miralax 17 gm (*)] 17 gm PO DAILY pkt 10/23/17 [Last Taken Unknown] Discharge Medications: Refer to the Discharge Home Medication list for PRN reason. - Orders Services needed: Physical Therapy, Occupational Therapy Isolation Type: None - Follow Up Care Current Providers and Referrals: Latha Payne MD [Primary Care Provider] - As per Instructions
--- NOTE | 2017-10-23 17:03 | ASDISCHSUM ---
Discharge Information Plan Status:Home with Home Health Medically Cleared to Leave: Discharge Date:10/23/2017 03:12 PM D/C Disposition:Home Health Service ADT D/C Disposition:Home, Routine, Self-Care Projected Discharge Date:10/23/2017 03:00 PM Transportation at D/C:Family Discharge Delay Reason: Follow-Up Date:10/23/2017 03:00 PM Discharge Slot: Final Diagnosis: Placement Information Referral Type:*Home Health Care Services Referral ID:[id number] Provider Name:[facility] Address 1:[address] [facility] [address] Address 2: City:[place] Selection Factors: State:[place] Patient Contact Information Contact Name:DAVIDNGHIA Relationship: Address:[address] City:[place] Alternate Phone: State/Zip Code:[place] [address] Email: Financial Information Financial Class: Primary Plan Desc:MEDICARE OUTPATIENT Primary Plan Number:[id number] Secondary Plan Desc:[employer]/MDR SUPPLEMENT Secondary Plan Number:[id number] Assessment Information LACE LACE Acuity / Level of Answers: Yes Care: Did the patient have an inpatient admission? Comorbidities - select Answers: Any tumor (including all that apply lymphoma or leukemia) # of Emergency department Answers: 1-2 visits in the last 6 months Score: 6 Date Signed: 10/22/2017 11:47 AM Electronically Signed By:Kateryna Heck RN [facility] Initial CM Assessment Living Arrangements What is your living Answers: With Spouse arrangement? Who do you live with? Type Of Residence What kind of residence do Answers: House you live in? Discharge Plan Comments Coordination Status Comments Notes: Pt is a 81 y/o female admitted for a small bowel obstruction. Needs are TBD at this time. Therapies have been ordered and awaiting recommendations. CM to follow. Plan: TBD Date Signed: 10/23/2017 10:23 AM Electronically Signed By:WILLIAM Orozco BC CM Progress Note CM Note CM Note Notes: Spoke w/pt re; dc with home care. Pt agrees and has used [facility] in the past, CM notified Mariaa at [facility]. DC Plan: [facility] (RN) Date Signed: 10/23/2017 12:57 PM Electronically Signed By:Katarzyna Langford RN Intervention Information Intervention Type:*Incorrect Registration Date of Service:10/22/2017 01:58 PM Patient Type:Observation Staff Member:LEANNA North, Susie Hours: Discipline: Severity: Comment: Intervention Type:*BETTINA-Signed Date of Service:10/23/2017 02:12 PM Patient Type:Observation Staff Member:Tete Gandara Hours: Discipline: Severity: Comment:
[2017-10-23] MEDS ORDERED: LORazepam 1 MG TAB PO SCH (21:00)
[2017-10-23] MEDS ORDERED: AMITRIPTYLINE HCL 25 MG TAB PO SCH (21:00)
== END 2017-10-23 15:12 | disposition home or self-care (01) ==
LOC: EDUNIT# → F3E 11:52 → INTOOBSV 13:15 → OBSVTOIN 13:15
PROVIDERS: ADMIT Internal Medicine; ATTEND Internal Medicine
DX: R93.3 Abnormal findings on diagnostic imaging of other parts of digestive tract (principal); R10.9 Unspecified abdominal pain; Z79.891 Long term (current) use of opiate analgesic; Z85.43 Personal history of malignant neoplasm of ovary
CPT/HCPCS: 74019; 74022; 74176; 96361; 96374; 96375; 96376; 97116; 97161; 99285; G0378; G8978; G8979; J1650; J1885; J2060; J2550; J2765; J3010

== ENCOUNTER → 2017-10-28 | Outpatient (CLI) | payer OTHER, MEDICARE | LOC: FIMAGING 11:23 | PROVIDERS: ATTEND Internal Medicine Hematology & Oncology | DX: M79.604 Pain in right leg (principal); R60.0 Localized edema ==

== ENCOUNTER 2017-12-20 09:57 | Emergency (ER) | payer OTHER, MEDICARE ==
[2017-12-20 10:06] VITALS: RESP 18
--- NOTE | 2017-12-20 11:18 | EDPHY ---
H & P Time Seen by Provider: 12/20/17 10:40 HPI/ROS: CHIEF COMPLAINT: "I pulled my DALLIN drain" HISTORY OF PRESENT ILLNESS: THE PATIENT IS AN 82-YEAR-OLD FEMALE WITH A HISTORY OF OVARIAN CANCER. 1 MONTH AGO SHE HAD ABDOMINAL SURGERY AT THE [facility] TO A TUMOR OR HER BLADDER. SINCE THAT TIME SHE HAS HAD A DALLIN DRAIN IN PLACE. THIS IS BEEN PRODUCING 300 ML A DAY. BY ACCIDENT THE PATIENT THOUGHT SHE WAS SUPPOSED TO PULL HER DRAIN THIS MORNING. THEY ARE INSTRUCTED NOT TO PULL THE DRAIN IN TELE PRODUCED 50 ML A DAY. THE PATIENT STATES THAT SHE HAS HAD NO SIGNIFICANT DRAINAGE TENSE PULLING THE DRAIN. SHE HAS NO ABDOMINAL PAIN. NO DISTENSION. NO NAUSEA VOMITING. NO FEVERS OR CHILLS. THE PATIENT HAS AN APPOINT WITH DR. COTA ON December. SHE SAW DR. WOOD YESTERDAY. REVIEW OF SYSTEMS: My complete review of systems is negative except as mentioned in the HPI. Past Medical/Surgical History: Ovarian cancer, depression, pneumonia, recurrent bowel obstruction, lymphedema, GERD Past surgical history: Includes recent abdominal surgery Smoking Status: Former smoker Physical Exam: 36.5, 119/72, 87, 18, 97 on room air GENERAL: Well-appearing, in no acute distress, alert. HEENT: Eyes normal to inspection, normal pharynx, no signs of dehydration. NECK: No thyromegaly, no lymphadenopathy, supple. RESPIRATORY: Clear to auscultation bilaterally, no rales, rhonchi or wheezing. CVS: Regular rate and rhythm, no rubs, murmurs, or gallops. ABDOMEN: Soft, nontender, nondistended, no organomegaly. The drain site is not producing significant amount of fluid. BACK: Normal to inspection, no CVA tenderness. SKIN: Normal color, no rash, warm, dry. No pallor. EXTREMITIES: No pedal edema, no calf tenderness, no Homans sign or cords, no joint swelling. NEURO/PSYCH: Alert and oriented x3, normal mood and affect, normal motor sensory exam. No obvious cranial nerve deficit. Constitutional: Initial Vital Signs Temperature (C) 36.5 C 12/20/17 09:58 Heart Rate 87 12/20/17 09:58 Respiratory Rate 18 12/20/17 09:58 Blood Pressure 119/72 12/20/17 09:58 O2 Sat (%) 96 12/20/17 09:58 O2 Delivery Mode Room Air Allergies/Adverse Reactions: hydromorphone Allergy (Mild, Verified 12/20/17 10:06) Rash Iodinated Contrast- Oral and IV Dye Allergy (Unknown, Verified 12/20/17 09:58) Dyspnea IODINE Allergy (Severe, Uncoded 12/10/16 16:49) Dyspnea DAISIES Allergy (Uncoded 12/10/16 16:49) Other-Enter Comments tape Allergy (Uncoded 12/10/16 16:49) Home Medications: Medication Instructions Recorded DULoxetine [Cymbalta 60 MG (*)] 60 mg PO DAILY 08/29/17 LORazepam [Ativan (*)] 1 mg PO HS 08/29/17 Omeprazole 40 mg PO DAILY 08/29/17 Ondansetron Odt [Zofran Odt 4 mg 4 - 8 mg PO Q4 PRN 08/29/17 (*)] Pregabalin [LYRICA] 150 mg PO BID 08/29/17 Promethazine HCl [Phenergan 25mg 6.25 - 12.5 mg PO BID PRN 08/29/17 (*)] Sennosides/Docusate Sodium 2 each PO BID #120 tab 09/03/17 [Senokot-S] Acetaminophen [Tylenol ES 500 mg 1,000 mg PO Q8H PRN 10/22/17 (*)] Lactulose 15 ml PO BID 10/22/17 Levothyroxine [Synthroid 50 mcg 50 mcg PO DAILY06 10/22/17 (*)] Lidocaine 5% [Lidoderm 5% Patch] 1 ea TD DAILY PRN 10/22/17 morphINE SR [Ms Contin/Oramorph 15 30 mg PO BID 10/22/17 mg (*)] Polyethylene Glycol 3350 [Miralax 17 gm PO DAILY pkt 10/23/17 17 gm (*)] Cephalexin [Keflex (*)] 500 mg PO QID #12 cap 12/20/17 hydrOXYzine HCL [hydrOXYzine HCL 25 mg PO 12/20/17 (RX)] Medical Decision Making ED Course/Re-evaluation: In the emergency department I discussed possible etiologies with the patient and family. I answered all their questions. I reviewed the patient's DALLIN drain that they brought with her. Eyes serosanguineous fluid in there. No blood or pus. Discussed the case with Dr. Shultz who was on-call for Dr. Wood. He recommended we take conservative approach. He did not want the DALLIN drain placed in the ER at this time. He will have patient recheck. The patient should keep her appointment with Dr. Olivo. I reviewed the patient's laboratory studies from 12/19/2017. At that time her white count was normal. She is anemic with hematocrit of 30. Her chemistry panel was notable for potassium of 3.5 slightly low chloride of 94 and slightly low carbon dioxide of 21. Her BUN was high at 46 with a creatinine mildly elevated at 1.3. Her urine did not show signs of acute infection. I discussed the case with the patient's son who is a physician. He was concerned that the patient's altered mental status secondary to spontaneous bacterial peritonitis. Patient does come in with a bowl DALLIN drain full of clear serosanguineous fluid. This was sent to the lab. White blood cell count 125, red blood cell count 31,. She will total protein less than to, peritoneal albumin less than 1, peritoneal glucose 64 I obtained a UA sample while here. Her white count was 51 82, red cells 5-10, bacteria 2+. Patient was given keflex 500 mg Orally. She was given a prescription for Keflex prior to leaving. I discussed this with the patient. I answered all her questions. She was given warnings prior to leaving. She will return with worsening symptoms. Patient was discharged from the emergency department. Addendum: Upon leaving the patient is family had spoken with the patient's surgeon at the [facility]. He requested that the patient have creatinine added onto her DALLIN drain fluid. This was completed by the charge nurse. 1500: The patient's creatinine was elevated at 1.2. I discussed the case with Dr. Hawkins from surgery. I explained the case. As the patient was already gone from the emergency department he did not see the patient personally. He recommended the patient have a cystogram scheduled in the next 3-5 days. He did not want a cystogram scheduled today and did not feel the patient needed to come back to the emergency department this time. I discussed this plan with Dr. Shultz who was on-call for Dr. Wood. His office will arrange appropriate follow-up. I contacted the patient's son at [phone] and informed him of the plan. He is aware of creatinine finding and the need for close follow-up with Dr. Wood. I subsequently called the patient's other son who is a physician at . He was unavailable and her left him a message to call back. Differential Diagnosis: My differential includes but is not limited to DALLIN drain removal, abscess, ascites, bacteremia, sepsis - Data Points Laboratory Results: 12/20/17 12/20/17 12/20/17 12:43 12:03 12:03 Urine RBC 5-10 /hpf H /hpf (0-3) Urine WBC 50-182 /hpf H /hpf (0-3) Ur Epithelial Cells TRACE /lpf /lpf (NONE-1+) Urine Bacteria 2+ /hpf H /hpf (NONE SEEN) Hyaline Casts 15-25 /lpf H /lpf (0-1) Fluid Glucose Cancelled Fluid Total Protein Cancelled Fluid Albumin Cancelled Peritoneal Source PER Peritoneal Color YELLOW H (CLS/PALE YL) Peritoneal Appearance CLEAR (CLEAR) Peritoneal WBC 125 /mm3 H /mm3 (0-0) Peritoneal RBC 31 /mm3 H /mm3 (0-0) Periton Neutrophils 8 % H % (0-7) Periton Lymphocytes % 92 % H % (0-18) Peritoneal Creatinine 1.2 mg/dL mg/dL Peritoneal Tot Protein < 2.0 g/dL g/dL Peritoneal Albumin < 1.0 g/dL g/dL Peritoneal Glucose 64 mg/dL mg/dL (55-113) Microbiology Results: MICROBIOLOGY 12/20/17 12:03 Abdomen - Other Gram Stain - Final Medications Given: Discontinued Medications Cephalexin (Keflex 500 Mg Prepack#4) 1 btl TAKEHOME EDNOW ONE PRN Reason: Protocol Stop: 12/20/17 13:07 Last Admin: 12/20/17 13:15 Dose: 1 btl Departure - Departure Disposition: Home, Routine, Self-Care Clinical Impression: Visit for wound check Condition: Good Instructions: Cephalexin (By mouth), Acute Abdominal Pain (ED), Urinary Tract Infection in Older Adults (ED) Additional Instructions: Return with increasing pain, swelling, distension, vomiting, significant drainage from your wound site or any other concerns. You need close follow-up with Dr. Wood. Keep your appointment with Dr. Olivo. Referrals: Leonard Wood MD [Medical Doctor] - 2-3 days without fail Prescriptions: Cephalexin [Keflex (*)] 500 mg PO QID #12 cap
[2017-12-20] MEDS ORDERED: CEPHALEXIN 500MG PREPACK#4 BTL TAKEHOME ONE (13:06)
[2017-12-20 13:11] VITALS: TEMP 97.5; O2SAT 93
[2017-12-20 13:27] VITALS: BP 124/66; PULSE 80
== END 2017-12-20 13:26 | disposition home or self-care (01) ==
DX: Z48.00 Encounter for change or removal of nonsurgical wound dressing (principal); Z85.43 Personal history of malignant neoplasm of ovary; Z87.891 Personal history of nicotine dependence

== ENCOUNTER 2018-01-23 14:54 | Inpatient (IN) | payer OTHER, MEDICARE ==
[2018-01-23] MEDS ORDERED: NS 1,000 ML IV ONE (15:27)
[2018-01-23] MEDS ORDERED: methylPREDNISolone SOD SUCC 125 MG/2 ML VIAL IVP ONE (15:29)
--- NOTE | 2018-01-23 15:33 | EDPHY ---
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 She was seen by her oncologist Dr. Wood today who sent her here for an MRI of her T and L-spine as well as a CT scan of her abdomen. The patient had debulking surgery at the [facility] in her pelvis 2 months ago. Since that time she has had progressively increasing weakness in her right leg and could no longer stand up. 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 She has not had a fever. She has not had a fall. She does have a history of surgery for lumbar stenosis. No urinary symptoms. She was recently on antibiotics for urinary tract infection. Family also complains of some mild swelling in her leg since her DALLIN drain was pulled 2 weeks ago. She was on Lovenox until about 3 weeks ago. She does not have any arm symptoms. No neck pain or headache. REVIEW OF SYSTEMS: Constitutional: denies: chills, fever, recent illness, recent injury EENTM: denies: blurred vision, double vision, nose congestion Respiratory: denies: cough, shortness of breath Cardiac: denies: chest pain, irregular heart rate, lightheadedness, palpitations Gastrointestinal/Abdominal: denies: abdominal pain, diarrhea, nausea, vomiting, blood streaked stools Genitourinary: denies: dysuria, frequency, hematuria, pain Musculoskeletal: See HPI Skin: denies: lesions, rash, jaundice, bruising Neurological: denies: headache, numbness, paresthesia, tingling, dizziness, weakness Hematologic/Lymphatic: denies: blood clots, easy bleeding, easy bruising Immunologic/allergic: denies: HIV/AIDS, transplant EXAM: GENERAL: Well-appearing, well-nourished and in no acute distress. HEAD: Atraumatic, normocephalic. EYES: Pupils equal round and reactive to light, extraocular movements intact, sclera anicteric, conjunctiva are normal. ENT: TMs normal, nares patent, oropharynx clear without exudates. Moist mucous membranes. NECK: Normal range of motion, supple without lymphadenopathy or JVD. LUNGS: Breath sounds clear to auscultation bilaterally and equal. No wheezes rales or rhonchi. HEART: Regular rate and rhythm without murmurs, rubs or gallops. ABDOMEN: Soft, nontender, normoactive bowel sounds. No guarding, no rebound. No masses appreciated. BACK: No CVA tenderness, no spinal tenderness, step-offs or deformities EXTREMITIES: The weakness primarily in the right leg, cannot lift off the bed, no obvious swelling seen. NEUROLOGICAL: Cranial nerves II through XII grossly intact. Normal speech, normal gait. The to of 5 strength in the right leg, 4-5 in the left leg except the ankle which is in a brace., normal movement in upper extremities, complains of decreased sensation in the right thigh and left ankle. PSYCH: Normal mood, normal affect. SKIN: Warm, dry, normal turgor, no visible rashes or lesions. Source: Patient Exam Limitations: No limitations - Personal History Current Tetanus/Diphtheria Vaccine: Unsure Tetanus Vaccine Date: unsure - Medical/Surgical History Hx Asthma: No Hx Chronic Respiratory Disease: No Hx Diabetes: No Hx Cardiac Disease: No Hx Renal Disease: No Hx Cirrhosis: No Hx Alcoholism: No Hx HIV/AIDS: No Hx Splenectomy or Spleen Trauma: No Other PMH: ovarian CA diag 38 yr ago with 7surg & 1 round of chemo, radiation, depression, back surgery, PNA, recurrent bowel obstruction, cancer currently, lymphedema,. GERD - Family History Significant Family History: No pertinent family hx - Social History Smoking Status: Former smoker Alcohol Use: Sober Drug Use: None Constitutional: Initial Vital Signs Temperature (C) 36.5 C 01/23/18 15:04 Heart Rate 82 01/23/18 15:04 Respiratory Rate 18 01/23/18 15:04 Blood Pressure 162/72 H 01/23/18 15:04 O2 Sat (%) 92 01/23/18 15:04 O2 Delivery Mode Room Air O2 (L/minute) 2 Allergies/Adverse Reactions: hydromorphone Allergy (Mild, Verified 01/23/18 14:59) Rash Iodinated Contrast- Oral and IV Dye Allergy (Unknown, Verified 01/23/18 14:59) Dyspnea IODINE Allergy (Severe, Uncoded 12/10/16 16:49) Dyspnea DAISIES Allergy (Uncoded 12/10/16 16:49) Other-Enter Comments tape Allergy (Uncoded 12/10/16 16:49) Home Medications: Medication Instructions Recorded DULoxetine [Cymbalta 60 MG (*)] 60 mg PO DAILY 08/29/17 LORazepam [Ativan (*)] 1 mg PO HS 08/29/17 Pregabalin [LYRICA] 150 mg PO BID 08/29/17 Promethazine HCl [Phenergan 25mg 12.5 - 25 mg PO BID PRN 08/29/17 (*)] Sennosides/Docusate Sodium 2 each PO BID #120 tab 09/03/17 [Senokot-S] Acetaminophen [Tylenol ES 500 mg 1,000 mg PO Q8H PRN 10/22/17 (*)] Lactulose 15 ml PO BID PRN 10/22/17 Levothyroxine [Synthroid 50 mcg 50 mcg PO DAILY06 10/22/17 (*)] Lidocaine 5% [Lidoderm 5% Patch] 1 ea TD HS PRN 10/22/17 morphINE SR [Ms Contin/Oramorph 15 30 mg PO DAILY 10/22/17 mg (*)] hydrOXYzine HCL [hydrOXYzine HCL 25 mg PO TID PRN 12/20/17 (RX)] Ascorbic Acid [Vitamin C 500 mg 500 mg PO DAILY 01/23/18 (*)] Cholecalciferol Vit D3 [Vitamin D3 1,000 units PO DAILY 01/23/18 (*)] Furosemide [Lasix 20 MG (*)] 20 mg PO DAILY 01/23/18 Hydrocortisone 1% [Hydrocortisone 1 manolo TP QID PRN 01/23/18 1% cream (*)] Letrozole [Femara 2.5 mg (*)] 2.5 mg PO DAILY 01/23/18 Multivitamins [Multivitamin (*)] 1 each PO DAILY 01/23/18 Omeprazole 20 mg PO DAILY 01/23/18 morphINE SR [Ms Contin/Oramorph 15 15 mg PO HS 01/23/18 mg (*)] Medical Decision Making - Diagnostics Imaging Results: Imaging Impressions Thoracic Spine MRI 01/23/18 15:27 Impression: 1. Moderate cord compression at the T6 level due to right epidural soft tissue mass extending from T4 to T8. Cord has mild edema/gliosis of the T6 level. 2. Extensive metastatic disease to the thoracic spine, worst at the T5-T8 level on the right. 3. No acute pathologic compression fracture. 4. Worsening metastatic liver disease. Findings discussed with Emergency Department physician, Daniel Castano on 2017, 18:30. Imaging: Discussed imaging studies w/ call center recruiter Radiologist ED Course/Re-evaluation: I spoke with Dr. Daly and with Dr. Diaz who will admit and consult. Dr. Daly request Decadron 4 mg q.6 hours. I spoke with Dr. Wood who feels that the abscess could be a seroma from the surgery. Also I spoke with patient and family are obviously disappointed but agree to admission and further workup and consultation. Differential Diagnosis: Partial list of the Differential diagnosis considered include but were not limited to; metastasis, cord compression and although unlikely based on the history and physical exam, I also considered head injury, CVA, peripheral neuropathy, infection. Critical Care Time: Critical care time spent by me, Dr. Castano exclusive with this patient was 45 minutes, exclusive of the PA time exclusive of procedures. The organ system that was at risk was neurologic and I gave medications, diagnostics and admission and consultation to prevent worsening of the patient's condition - Data Points Laboratory Results: Laboratory Results 01/23/18 16:11 01/23/18 16:11 Medications Given: Acetaminophen (Tylenol) 650 mg PO Q4 PRN PRN Reason: Pain, Mild/Fever, Can Take PO Stop: 07/22/18 21:00 Last Admin: 01/24/18 12:12 Dose: 650 mg Dexamethasone (Decadron Injection) 4 mg IVP Q6HRS AICHA Stop: 07/23/18 00:00 Last Admin: 01/24/18 12:06 Dose: 4 mg Duloxetine HCl (Cymbalta) 60 mg PO DAILY AICHA Stop: 07/23/18 08:59 Last Admin: 01/24/18 10:01 Dose: 60 mg Furosemide (Lasix) 20 mg PO DAILY AICHA Stop: 07/23/18 08:59 Last Admin: 01/24/18 10:01 Dose: 20 mg Hydroxyzine HCl (Hydroxyzine Hcl) 25 mg PO TID PRN PRN Reason: Anxiety Stop: 07/22/18 21:17 Last Admin: 01/24/18 14:19 Dose: 25 mg Lactulose (Cephulac) 20 gm PO TID PRN; Protocol PRN Reason: Constipation Stop: 07/22/18 22:54 Last Admin: 01/23/18 23:32 Dose: 20 gm Letrozole (Femara) 2.5 mg PO DAILY AICHA Stop: 07/23/18 08:59 Last Admin: 01/24/18 10:01 Dose: 2.5 mg Levothyroxine Sodium (Synthroid) 50 mcg PO DAILY06 AICHA Stop: 07/23/18 05:59 Last Admin: 01/24/18 06:08 Dose: 50 mcg Lorazepam (Ativan) 1 mg PO HS AICHA Stop: 07/22/18 20:59 Last Admin: 01/23/18 22:45 Dose: 1 mg Miscellaneous Information (Patch Removal) 1 ea TD DAILY AICHA Stop: 07/23/18 08:59 Last Admin: 01/24/18 10:33 Dose: Not Given Morphine Sulfate (Ms Contin/Oramorph Sr) 30 mg PO DAILY AICHA Stop: 02/03/18 08:59 Last Admin: 01/24/18 10:01 Dose: 30 mg Pantoprazole Sodium (Protonix) 40 mg PO DAILY AICHA Stop: 07/23/18 08:59 Last Admin: 01/24/18 10:01 Dose: 40 mg Pregabalin (Lyrica) 150 mg PO BID AICHA Stop: 07/23/18 08:59 Last Admin: 01/24/18 10:01 Dose: 150 mg Senna/Docusate Sodium (Senokot-S) 2 tab PO BID AICHA Stop: 07/22/18 23:14 Last Admin: 01/24/18 10:01 Dose: 2 tab Discontinued Medications Dexamethasone (Decadron Injection) 4 mg IVP EDNOW ONE Stop: 01/23/18 18:39 Last Admin: 01/23/18 18:53 Dose: 4 mg Diphenhydramine HCl (Benadryl Injection) 50 mg IVP EDNOW ONE Stop: 01/23/18 15:30 Last Admin: 01/23/18 16:11 Dose: 50 mg Sodium Chloride (Ns) 1,000 mls @ 0 mls/hr IV ONCE ONE; Wide Open PRN Reason: Protocol Stop: 01/23/18 15:28 Last Admin: 01/23/18 16:10 Dose: 1,000 mls Methylprednisolone Sodium Succinate (Solu-Medrol) 125 mg IVP EDNOW ONE Stop: 01/23/18 15:30 Last Admin: 01/23/18 16:11 Dose: 125 mg Morphine Sulfate (Ms Contin/Oramorph) 15 mg PO ONCE ONE Stop: 01/23/18 20:36 Last Admin: 01/23/18 20:56 Dose: 15 mg Pregabalin (Lyrica) 150 mg PO ONCE ONE Stop: 01/23/18 20:37 Last Admin: 01/23/18 20:56 Dose: 150 mg Departure - Departure Disposition: [facility] Acute 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
[2018-01-23 16:20] LABS: PLATELET COUNT 297 10^3/uL (150-400)
[2018-01-23 16:39] LABS: INR 0.99 (0.83-1.16); PROTIME(PATIENT) 13.3 SEC (12.0-15.0)
[2018-01-23] MEDS ORDERED: GADOBUTROL 10 ML VIAL IVP ONE (17:07)
[2018-01-23] MEDS ORDERED: IOPAMIDOL (ISOVUE-300) 100 ML BTL ONE (17:54)
[2018-01-23] MEDS ORDERED: DEXAMETHASONE 4 MG/ML VIAL IVP ONE (18:38)
[2018-01-23] MEDS ORDERED: morphINE SR 15 MG TAB PO ONE (20:35)
[2018-01-23] MEDS ORDERED: PREGABALIN 150 MG CAP PO ONE (20:36)
[2018-01-23] MEDS ORDERED: ONDANSETRON 4 MG/2 ML VIAL IVP PRN (21:01)
--- NOTE | 2018-01-23 21:46 | GHP ---
[f rep st] HISTORY AND PHYSICAL DATE OF ADMISSION: 01/23/2018 CHIEF COMPLAINT: Right leg weakness. HISTORY: The patient is an 82-year-old female with metastatic ovarian cancer that she has battled fo r the last 38 years. She has had 6 debulking surgeries with the last 1 occurring at [facility] only 2 months ago. She now presents with 2 weeks of increasing right leg weakness and numbness. It is n ow to the point she can no longer stand. She saw Dr. Wood in the office who sent her to the emerg ency room today for MRI of thoracic and lumbar spine, which is now showing spinal metastases with cor d compression. Her left leg is chronically weak and numb due to a previous injury. She still had a DALLIN drain in place after her debulking surgery; however, she got a UTI which caused some confusion abo ut 2 weeks ago, and in her confusion that she pulled out her DALLIN. At the time it was pulled out, it w as still draining significant amounts of fluid. She denies any abdominal pain. She is due for urete ral stent removal at [facility]. However given her illness, family does not think they are going to be able to return there to have this procedure performed. PAST MEDICAL HISTORY: 1. Metastatic ovarian cancer x38 years. Initially she underwent hysterectomy and appendectomy. She has had recurrent small bowel obstructions due to tumor burden. She has had 6 debulkings. 2. Lymphedema and neuropathy to the left lower extremity. 3. Continuous narcotic dependency. 4. Ureteral stent, due for removal. MEDICATIONS: Please see computer record for full detailed list. ALLERGIES: To IV dye. SOCIAL HISTORY: No smoking. No alcohol. She lives with her and son. REVIEW OF SYSTEMS: Complete review of systems obtained. Review of systems negative on constitutiona l, HEENT, GI, pulmonary, cardiovascular, , hematology, skin, musculoskeletal, endocrine, psych. Po sitives and negatives as in HPI. FAMILY HISTORY: Reviewed, noncontributory to presenting complaint. PHYSICAL EXAMINATION: GENERAL: Well-developed, well-nourished female, in no acute distress. VITAL SIGNS: Temperature 36.5, pulse 97, blood pressure 157/71, saturating 92% on room air. EYE: Normal conjunctivae. Pupils equal, round, react to light. ENT: Normal ears and nose. Hearing intact. No rmal teeth. Oropharynx moist. NECK: Trachea midline. No thyromegaly. CHEST: Normal respiratory effort. LUNGS: Clear to auscultation bilaterally. CARDIOVASCULAR: Regular rate, rhythm. No murmu r. No lower extremity edema. ABDOMEN: Soft, nontender. Positive bowel sounds. SKIN: Warm, dry, intact. No rash. MUSCULOSKELETAL: No cyanosis or clubbing. Cranial nerves intact. Strength to he r lower extremities is a 2/5. She can move them laterally in the bed but cannot lift them off the be d. They are both numb to differing degrees. PSYCH: Alert, oriented x3. Normal affect. Normal chantelle gment and insight. Normal memory. LABORATORY DATA: White count 7.57, hematocrit 27.8, platelets 297. Sodium 140, potassium 3.7, chlor darryl 103, bicarb 25, BUN 17, creatinine 0.8, glucose 94. LFTs are normal. INR 0.99. UA shows 25-50 white blood cells, 3+ bacteria. T-spine MRI shows moderate cord compression at T6 due to a right epi dural soft tissue mass T4 through T8. L-spine shows severe spinal stenosis due to an L4 metastases a s well as moderate bilateral hydronephrosis secondary to pelvic mass. Medical records reviewed. She has been here multiple times before with frequent bowel obstructions d ue to adhesions. ASSESSMENT/PLAN: 1. T6 and L4 spinal metastases with cord compression. We will continue IV Decadron. Neurosurgery w ill see her in consultation. 2. Metastatic ovarian cancer, status post recent debulking surgery at [facility]. This was her 6th debul[address] surgery. CT scan of the abdomen and pelvis is pending, but reportedly ER was told by Radi ology there is a fluid collection. I anticipate this is due to her DALLIN drain falling out prematurely. It is unclear if she is going to need some type of tap of this fluid collection by Radiology. 3. Bilateral hydro secondary to a pelvic mass. Her renal function is normal. She has a ureteral st ent that is due for removal. She may need Urology consultation during this hospitalization. 4. Cor status is full. We will consult palliative care regarding goals of care. Specifically, I wo uld at this point address cor status. ADMISSION STATUS: Will admit to inpatient. As she is medically complex, anticipate greater than 2 m idnights. DEEP VENOUS THROMBOSIS PROPHYLAXIS: She is high risk. We will place on subcu Lovenox. /[id number]/MODL
[2018-01-23] MEDS: LORazepam 1 MG TAB PO SCH (22:45)
[2018-01-23] MEDS ORDERED: POLYETHYLENE GLYCOL 3350 17 GM PKT PO PRN (22:55)
[2018-01-23] MEDS ORDERED: BISACODYL 10 MG SUPP PR PRN (22:55)
[2018-01-23] MEDS ORDERED: MAGNESIUM HYDROXIDE 30 ML UDCUP PO PRN (22:55)
[2018-01-23] MEDS: DEXAMETHASONE 4 MG/ML VIAL IVP SCH (23:32)
[2018-01-23] MEDS: SENNOSIDES/DOCUSATE SODIUM TAB PO SCH (23:32)
[2018-01-23] MEDS: LACTULOSE 20 GM/30 ML UDCUP PO PRN (23:32)
[2018-01-24 04:51] LABS: PLATELET COUNT 299 10^3/uL (150-400)
[2018-01-24] MEDS: DEXAMETHASONE 4 MG/ML VIAL IVP SCH ×4 (06:07→23:47)
[2018-01-24] MEDS: LEVOTHYROXINE 50 MCG TAB PO SCH (06:08)
[2018-01-24] MEDS ORDERED: ENOXAPARIN 40 MG/0.4 ML SYR SC SCH (09:00)
[2018-01-24] MEDS: LETROZOLE 2.5 MG TAB PO SCH (10:01)
[2018-01-24] MEDS: morphINE SR 30 MG TAB PO SCH (10:01)
[2018-01-24] MEDS: PANTOPRAZOLE SODIUM 40 MG TAB PO SCH (10:01)
[2018-01-24] MEDS: PREGABALIN 150 MG CAP PO SCH ×2 (10:01→20:05)
[2018-01-24] MEDS: FUROSEMIDE 20 MG TAB PO SCH (10:01)
[2018-01-24] MEDS: SENNOSIDES/DOCUSATE SODIUM TAB PO SCH ×2 (10:01→20:05)
[2018-01-24] MEDS: DULoxetine 60 MG CAP PO SCH (10:01)
--- NOTE | 2018-01-24 10:13 | GHP ---
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 We really outlined several options: First I discussed hospice care. The second option would be palliative radiation to the spinal cord compression and probably the L4, followed by palliative/hospice care at home once she has completed the radiotherapy. EXECUTIVE SUMMARY: This is a patient I have taken care for a long time, who is 82 years of age and has had a granulosa cell carcinoma of the ovary since 1978. She recently had a surgical debulking procedure at [facility], where they removed a large tumor that was impinging on the bladder wall, and also a mesenteric mass. She had intraoperative radiotherapy and came home, was recovering, but then developed increasing right leg weakness in the last week or so. She called yesterday, and they referred her to the emergency room. MR showed significant spinal cord compression at T6 and also an invasion at T4, displacing the dural sac. She also has evidence of progressive liver metastases. I asked her permission to discuss her situation and reviewed the facts, and I talked to her about what the meaning of this was, and we discussed prognosis. What I told her is that it is most likely that this disease would run its course within 6 months, and it could easily run its course within a few months. It is her goal to at home and spend her last days there, if possible, with her family. She will obviously need a lot of care and support to be able to do that, and therefore home palliative care/hospice will be needed prior to that, though we talked about radiation therapy to the thoracic and lumbar spine. We felt, given the advanced state of this cancer and the extent of surgery that would be required, that surgical decompression was not appropriate, and Dr. James agreed with that assessment. We discussed palliative radiation to see if it helps restore leg function, and we talked about that in a lot of detail, and they are making a decision this morning if they want to do that, and if they do, we will probably try to arrange for that to begin as soon as possible, pending the availability of Radiation Oncology, and then also she will stay here until the treatment plan is effective and then probably be, if she does palliative radiation, transitioned to a detention facility for rehab, and then after that, probably would be cared for in the home setting with hospice. /[id number]/MODL MTDD
[2018-01-24] MEDS: PATCH REMOVAL 1 EA PATCH TD SCH (10:33)
--- NOTE | 2018-01-24 11:41 | PDMN ---
Medical Necessity Medical necessity: est los>2mn for metastatic ovarian cancer w/T6/L4 spinal mets w/cord compression, and bilateral hydo r/t pelvic mass; admit for IV Decadron, NS consult, possible urology consult; hx multiple bowel obstructions and debulking surgeries, including 2 mos ago, uteteral stent in place; per order and H&P
[2018-01-24] MEDS: ACETAMINOPHEN 325 MG TAB PO PRN ×2 (12:12→23:47)
--- NOTE | 2018-01-24 13:04 | GCON ---
[f rep st] CONSULTATION NEUROSURGERY CONSULTATION. CHIEF COMPLAINT: Leg weakness. HPI: The patient is an 82-year-old female patient with a past medical history significant for metastatic ovarian cancer that she has been battling for the past almost 40 years. She has had approximately 6 debulking surgeries with the last one occurring at the [facility] about 2 months ago. She presented to the emergency room with 2 weeks of increasing right leg weakness and numbness. She is no longer able to stand. She underwent imaging in the emergency room and has been seen by Dr. Wood as well. MRI demonstrated significant metastasis into the spine with some cord compression. The neurosurgery service is subsequently consulted. On exam examination this morning, the patient is resting in bed. Her daughter is at the bedside. She denies any pain, numbness or tingling, but states that she has continued weakness. She states that yesterday her weakness was more in her right leg and today it is more on the left. PAST MEDICAL HISTORY: Metastatic ovarian cancer, lymphedema, neuropathy of left lower extremity, narcotic dependency, ureteral stent. MEDICATIONS: Please see the home medication list. ALLERGIES: To IV contrast. SOCIAL HISTORY: The patient lives with her and son. She does not use alcohol. FAMILY HISTORY: Patient has a living son and daughter. Her family history has been reviewed and is noncontributory. REVIEW OF SYSTEMS: Please see above mentioned HPI. PHYSICAL EXAMINATION: VITAL SIGNS: Blood pressure is 143/65, heart rate 83, respirations 15, O2 saturation is 99% on 2 L of oxygen via nasal cannula, temperature is 36.6 Celsius. GENERAL: This is an elderly female patient in no acute distress. NEUROLOGIC: Cranial nerves 2-12 are grossly intact. Focused motor examination of bilateral lower extremities: The patient has approximately 4+/5 in left and right quadriceps and hamstring. Tibialis anterior on the left is approximately 4-/5. It is 4+/5 on the right. She was unable to dorsiflex or plantar flex with the left foot. Dorsiflexion and plantar flexion on the right side approximately 4-/5. She reports intact sensation throughout the normal dermatomal distribution of her body. However, she states she does have longstanding numbness in her left foot. LABORATORY: White blood cells 5.73, red blood cells 3.23, hemoglobin 7.9, hematocrit 26.4, RDW 18.6, platelet count 299. PT 13.3, INR 0.99, APTT is 36.8. Sodium is 140, potassium 4.2, chloride 102, carbon dioxide 28, anion gap 10, BUN 16, creatinine 0.7, GFR greater than 60, glucose 152, calcium 8.8. Urinalysis is 2+ for blood, 1+ leukocyte esterase, red blood cells 50-180, white blood cells 25 to 50, urine bacteria is 3+. IMAGING: Lumbar spine MRI with and without contrast new severe central canal stenosis at the L4 level due to large metastatic lesion at L4 resulting in posterior cortical dehiscence and posterior bulge into the canal, mild height loss of the L4 vertebral body, diffusely heterogeneous bone marrow signal throughout the lumbar spine suggests multilevel metastatic disease. Moderate central canal narrowing and neural foraminal stenosis at L1-L2 due to degenerative disk and facet arthropathy is unchanged, worsening metastatic disease to the liver. New moderate bilateral hydronephrosis, presumably due to a pelvic mass. Thoracic spine MRI with and without contrast, moderate cord compression at the T6 level due to right epidural soft tissue mass extending from T4 through T8, cord has mild edema/gliosis at the T6 level. Extensive metastatic disease to the thoracic spine, worse at the T5 through T8 level on the right. No acute pathologic compression fracture. Worsening metastatic liver disease. CT of the abdomen, no significant change to lung metastasis, worsening liver metastasis. New bilateral hydronephrosis, right worse than left. New double J ureteral stent is present on the right, small fluid collection with speckles of air medial to the acetabular roof where the previous primary ovarian cancer has been removed. Developing abscess is a possibility. This is right now too small for drain placement and is in a location that is very challenging for aspiration. Continue followup as suggested. Resolution of small-bowel obstruction. Constipation. Diffuse anasarca. No definite IVC or iliac venous thrombosis on either side when taking into consideration some indirect signs. Some of the anatomy is obscured by spinal hardware. No change of metastatic mass in the presacral/retrorectal space on the left. ASSESSMENT: This is an 82-year-old female patient with past medical history significant for metastatic ovarian cancer with multiple areas of metastasis to the spine and other organs. She has cord compression in her thoracic and lumbar spine. PLAN: The patient was seen by Dr. Reuben James this morning. I also saw the patient and examined her today. Dr. James and Dr. Wood discussed and, given the patient's worsening disease, do not feel that surgical intervention would enhance her overall quality of life. At this time, Dr. Wood is going to discuss further treatment options with the patient including hospice and/or possible palliative radiation therapy. I reiterated to the patient and her daughter that, at this time, we would not recommend any surgical intervention for her. They expressed agreement and understanding of the plan. The patient will continue to work with Dr. Wood for further management. Neurosurgery will plan to sign off on this patient and follow peripherally. Please contact us if there are any additional questions or concerns or if we can be of further assistance. /[id number]/MODL MTDD
--- NOTE | 2018-01-24 14:00 | HOSPPROG ---
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 - nsg and onc do not feel she is a surgical candidate; nsg does not recommend brace - family has sent all imaging to [place] - plan to proceed with XRT - cont decadron IV # bilat hydronephrosis R>L - she has a R ureteral stent in place; likely d/t worsening metastatic disease # depr - cymbalta # hypothyroid - synthroid # chronic pain on continuous narcotics - cont morphine # code status - discussed with daughter and patient; they clearly would prefer DNR and understand the significance Subjective: strength in her R leg actually seems better today Objective: Vital Signs Temp Pulse Resp BP Pulse Ox 36.8 C 87 15 144/52 H 92 01/24/18 11:26 01/24/18 11:26 01/24/18 11:26 01/24/18 11:26 01/24/18 11:26 Laboratory Results 01/24/18 04:22 01/24/18 04:22 01/23/18 01/24/18 01/25/18 05:59 05:59 05:59 Intake Total 1300 Output Total 400 200 Balance 900 -200 PT 13.3 SEC (12.0-15.0) 01/23/18 16:11 INR 0.99 (0.83-1.16) 01/23/18 16:11 imaging reviewed and discussed with Lexii Ellsworth and Nina - Time Spent With Patient Time Spent with Patient: greater than 35 minutes Time Spent with Patient: Greater than 35 minutes spent on this patients care, greater than 50% of time spent counseling, educating, and coordinating care regarding the above mentioned plan. - Physical Exam Constitutional: no apparent distress, appears nourished Neurologic: other (slight movement in her R leg) ICD10 Worksheet Patient Problems: Problems Problem Status Onset Pneumonia Acute Granulosa cell carcinoma Acute Small bowel obstruction Acute Chest pain Acute 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
[2018-01-24] MEDS: hydrOXYzine HCL 25 MG TAB PO PRN ×2 (14:19→23:49)
[2018-01-24] MEDS ORDERED: PROCHLORPERAZINE MALEATE 10 MG TAB PO PRN (16:17)
--- NOTE | 2018-01-24 17:03 | ASMTCMCOM ---
CM Note CM Note Notes: Palliative consult with pt's dtr today, palliative service dog traineralycia Richards and this CM. Consult cut short by pt's need to go to [facility] for radiation simulation. Pt will need SNF at [place] until she regains her strength. First choice is [facility]. [facility] had already reached out to [facility]. They may have a bed next week but able to review until Saturday. [facility] and clinicals faxed. 2nd choice is [facility]. Both will need to arrange for radiation appts. Pt also agreed to palliative in the home with [facility]. they were alerted and referral faxed. CM to follow. Date Signed: 01/24/2018 05:02 PM Electronically Signed By:Krystin Pollock LCSW
[2018-01-24] MEDS: morphINE SR 15 MG TAB PO SCH (20:05)
[2018-01-24] MEDS: LORazepam 1 MG TAB PO SCH (22:10)
[2018-01-24] MEDS: LACTULOSE 20 GM/30 ML UDCUP PO PRN (23:57)
[2018-01-25] MEDS: ACETAMINOPHEN 325 MG TAB PO PRN ×2 (04:44→11:53)
[2018-01-25] MEDS: LEVOTHYROXINE 50 MCG TAB PO SCH (04:45)
[2018-01-25] MEDS: DEXAMETHASONE 4 MG/ML VIAL IVP SCH ×4 (05:05→23:52)
[2018-01-25] MEDS: PANTOPRAZOLE SODIUM 40 MG TAB PO SCH (08:43)
[2018-01-25] MEDS: SENNOSIDES/DOCUSATE SODIUM TAB PO SCH ×2 (08:43→20:32)
[2018-01-25] MEDS: PREGABALIN 150 MG CAP PO SCH ×2 (08:43→20:33)
[2018-01-25] MEDS: LETROZOLE 2.5 MG TAB PO SCH (08:43)
[2018-01-25] MEDS: morphINE SR 30 MG TAB PO SCH (08:43)
[2018-01-25] MEDS: DULoxetine 60 MG CAP PO SCH (08:43)
[2018-01-25] MEDS: ENOXAPARIN 40 MG/0.4 ML SYR SC SCH (08:43)
[2018-01-25] MEDS: PATCH REMOVAL 1 EA PATCH TD SCH (08:45)
--- NOTE | 2018-01-25 09:47 | SOAPPROG ---
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 cord compression - not a surgical candidate plan XRT to start today cont dexamethasone will need rehab on discharge palliative care on board; family had long discussion w Dr Wood yesterday - no further aggressive treatment recommended continue letrozole 2. bilateral hydronephrosis (R>L) - s/p ureteral stent on right no e/o infection monitor 3. pain - cont current medications 4. hypothyroidism 5. Cor status - DNR 01/25/18 09:48 Subjective: No acute events pain relatively controlled per family in XRT this morning Objective: Vital Signs Temp Pulse Resp BP Pulse Ox 36.7 C 66 16 157/75 H 94 01/25/18 08:49 01/25/18 08:49 01/25/18 08:49 01/25/18 08:49 01/25/18 08:49 Laboratory Results 01/24/18 04:22 01/24/18 04:22 01/24/18 01/25/18 01/26/18 05:59 05:59 05:59 Intake Total 1300 1000 Output Total 400 200 Balance 900 800 PT 13.3 SEC (12.0-15.0) 01/23/18 16:11 INR 0.99 (0.83-1.16) 01/23/18 16:11 Pt not examined today gone to XRT ICD10 Worksheet Patient Problems: Problems Problem Status Onset 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
[2018-01-25] MEDS: FUROSEMIDE 20 MG TAB PO SCH (10:48)
[2018-01-25] MEDS: PROMETHAZINE HCL 25 MG TAB PO PRN (11:52)
[2018-01-25] MEDS ORDERED: FUROSEMIDE 20 MG TAB PO ONE (12:53)
--- NOTE | 2018-01-25 13:13 | HOSPPROG ---
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 - nsg and onc do not feel she is a surgical candidate; nsg does not recommend brace - family has sent all imaging to [place] - started XRT today - cont decadron IV - family would like to consider megace as treatment # bilat hydronephrosis R>L - she has a R ureteral stent in place; likely d/t worsening metastatic disease; normal renal function - consider urology consult # LE edema - increase lasix today # depr - cymbalta # hypothyroid - synthroid # chronic pain on continuous narcotics - cont morphine # code status - DNR Subjective: had radiation today, feels slightly nauseaus; seen with her son Objective: Vital Signs Temp Pulse Resp BP Pulse Ox 36.4 C 88 17 150/70 H 94 01/25/18 11:15 01/25/18 11:15 01/25/18 11:15 01/25/18 11:15 01/25/18 11:15 Laboratory Results 01/24/18 04:22 01/24/18 04:22 01/24/18 01/25/18 01/26/18 05:59 05:59 05:59 Intake Total 1300 1000 Output Total 400 200 Balance 900 800 PT 13.3 SEC (12.0-15.0) 01/23/18 16:11 INR 0.99 (0.83-1.16) 01/23/18 16:11 - Time Spent With Patient Time Spent with Patient: greater than 35 minutes Time Spent with Patient: Greater than 35 minutes spent on this patients care, greater than 50% of time spent counseling, educating, and coordinating care regarding the above mentioned plan. - Physical Exam Constitutional: no apparent distress, appears nourished Musculoskeletal: other (1+ bilat LE edema) ICD10 Worksheet Patient Problems: Problems Problem Status Onset 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
[2018-01-25] MEDS: hydrOXYzine HCL 25 MG TAB PO PRN ×2 (14:45→23:51)
[2018-01-25] MEDS: ACETAMINOPHEN 500 MG TAB PO SCH ×2 (17:44→21:28)
[2018-01-25] MEDS: LIDOCAINE 4%/MENTHOL 1% PATCH TD PRN ×2 (17:58→23:56)
[2018-01-25] MEDS: morphINE SR 15 MG TAB PO SCH (20:33)
[2018-01-25] MEDS: LACTULOSE 20 GM/30 ML UDCUP PO PRN (21:28)
[2018-01-25] MEDS: LORazepam 1 MG TAB PO SCH (21:28)
[2018-01-26] MEDS: LEVOTHYROXINE 50 MCG TAB PO SCH (04:48)
[2018-01-26] MEDS: ACETAMINOPHEN 500 MG TAB PO SCH (04:48)
[2018-01-26] MEDS: hydrOXYzine HCL 25 MG TAB PO PRN ×2 (04:49→23:32)
[2018-01-26] MEDS: DEXAMETHASONE 4 MG/ML VIAL IVP SCH ×2 (04:57→12:14)
[2018-01-26] MEDS: PROMETHAZINE HCL 25 MG TAB PO PRN (08:22)
[2018-01-26] MEDS: PATCH REMOVAL 1 EA PATCH TD SCH (08:45)
[2018-01-26] MEDS: PROCHLORPERAZINE MALEATE 10 MG TAB PO SCH (08:55)
[2018-01-26] MEDS: LETROZOLE 2.5 MG TAB PO SCH (08:55)
[2018-01-26] MEDS: morphINE SR 30 MG TAB PO SCH (08:55)
[2018-01-26] MEDS: PANTOPRAZOLE SODIUM 40 MG TAB PO SCH (08:55)
[2018-01-26] MEDS: PREGABALIN 150 MG CAP PO SCH ×2 (08:55→20:38)
[2018-01-26] MEDS: DULoxetine 60 MG CAP PO SCH (08:55)
[2018-01-26] MEDS: SENNOSIDES/DOCUSATE SODIUM TAB PO SCH ×2 (08:55→20:38)
[2018-01-26] MEDS: ENOXAPARIN 40 MG/0.4 ML SYR SC SCH (08:55)
--- NOTE | 2018-01-26 10:53 | SOAPPROG ---
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 cord compression - not a surgical candidate started XRT 01/25/2018 cont dexamethasone will need rehab on discharge family would like pt to stay here until XRT complete - not sure this is feasible palliative care on board; family had long discussion w Dr Wood - no further aggressive treatment recommended continue letrozole 2. bilateral hydronephrosis (R>L) - s/p ureteral stent on right no e/o infection monitor 3. pain - need to increase long acting morphine 4. hypothyroidism 5. anemia - checking iron studies consider PRBCs while inpatient EPO (chronic dz) vs iron (iron deficiency) as outpt 6. Weight loss - son would like to try Megace but worried about possibility of IVC thrombus although not definite on CT scan Check abd US w doppler to help clarify? doubt IVC will be well visualized 7. Cor status - DNR 01/26/18 10:49 01/26/18 10:53 01/26/18 11:00 Subjective: no acute events pain not well controlled not sleeping no LE edema Objective: Vital Signs Temp Pulse Resp BP Pulse Ox 36.8 C 90 17 161/78 H 93 01/26/18 08:14 01/26/18 08:14 01/26/18 08:14 01/26/18 08:16 01/26/18 08:14 Laboratory Results 01/24/18 04:22 01/26/18 04:55 01/25/18 01/26/18 01/27/18 05:59 05:59 05:59 Intake Total 1000 1300 Output Total 200 500 Balance 800 800 PT 13.3 SEC (12.0-15.0) 01/23/18 16:11 INR 0.99 (0.83-1.16) 01/23/18 16:11 Gen - NAD, sitting in chair HEENT - anicteric abd - soft, NT/ND, BS+ Ext - no sig edema ICD10 Worksheet Patient Problems: Problems Problem Status Onset 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
[2018-01-26] MEDS: FUROSEMIDE 40 MG TAB PO SCH (12:13)
--- NOTE | 2018-01-26 13:13 | HOSPPROG ---
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 - nsg and onc do not feel she is a surgical candidate; nsg does not recommend brace - started XRT 01/25 - cont decadron PO today - family would like to consider megace as treatment - would start if US negative for thrombus # ? IVC thrombus - will try US of abd with dopplers to eval # bilat hydronephrosis R>L - she has a R ureteral stent in place; likely d/t worsening metastatic disease; normal renal function - consider urology consult # LE edema - increase lasix today # depr - cymbalta # hypothyroid - synthroid # chronic pain on continuous narcotics - cont morphine # code status - DNR Subjective: no nausea after XRT today Objective: Vital Signs Temp Pulse Resp BP Pulse Ox 36.7 C 86 18 166/80 H 94 01/26/18 11:55 01/26/18 11:55 01/26/18 11:55 01/26/18 11:55 01/26/18 11:55 Laboratory Results 01/24/18 04:22 01/26/18 04:55 01/25/18 01/26/18 01/27/18 05:59 05:59 05:59 Intake Total 1000 1300 Output Total 200 500 Balance 800 800 PT 13.3 SEC (12.0-15.0) 01/23/18 16:11 INR 0.99 (0.83-1.16) 01/23/18 16:[address] Mccormack - Physical Exam Constitutional: no apparent distress, appears nourished Cardiovascular: regular rate and rhythym, no murmur, rub, or gallop Respiratory: no respiratory distress, no rales or rhonchi, clear to auscultation Gastrointestinal: soft, non-tender abdomen, No guarding, No rebound, No distension ICD10 Worksheet Patient Problems: Problems Problem Status Onset Pneumonia Acute Granulosa cell carcinoma Acute Small bowel obstruction Acute Chest pain Acute 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
--- NOTE | 2018-01-26 15:14 | ASMTCMCOM ---
CM Note CM Note Notes: Referral sent to [facility] today. [facility] was sent a referral on the . [facility] will take patients needing limited radiation. Beena will need radiation 5 days/wk through the 05 of February. Hospice could take someone on home Hospice with limited radiation for pain control not tx. Family lives across the street from [facility] and it would make it a lot easier if she was at [facility] for to visit. Transport from [facility] by [employer] van cost RT $8. Date Signed: 01/26/2018 03:04 PM Electronically Signed By:Bela Frye LCSW
[2018-01-26] MEDS: DEXAMETHASONE 4 MG TAB PO SCH ×2 (17:56→23:31)
[2018-01-26] MEDS: morphINE SR 15 MG TAB PO SCH (20:38)
[2018-01-26] MEDS: LORazepam 1 MG TAB PO SCH (20:38)
[2018-01-26] MEDS: ENOXAPARIN 60 MG/0.6 ML SYR SC SCH (20:38)
[2018-01-26] MEDS: LACTULOSE 20 GM/30 ML UDCUP PO PRN (20:47)
[2018-01-26] MEDS: ACETAMINOPHEN 500 MG TAB PO PRN (23:31)
[2018-01-27] MEDS: oxyCODONE IR 5 MG TAB PO PRN ×2 (00:53→06:20)
[2018-01-27] MEDS: LIDOCAINE 4%/MENTHOL 1% PATCH TD PRN ×3 (01:06→20:57)
[2018-01-27] MEDS: LEVOTHYROXINE 50 MCG TAB PO SCH (05:45)
[2018-01-27] MEDS: DEXAMETHASONE 4 MG TAB PO SCH ×4 (05:45→23:21)
[2018-01-27] MEDS: hydrOXYzine HCL 25 MG TAB PO PRN ×2 (05:54→18:30)
[2018-01-27] MEDS: ACETAMINOPHEN 500 MG TAB PO PRN ×3 (05:54→23:20)
[2018-01-27] MEDS: SENNOSIDES/DOCUSATE SODIUM TAB PO SCH ×2 (08:25→20:56)
[2018-01-27] MEDS: PREGABALIN 150 MG CAP PO SCH ×2 (08:26→20:56)
[2018-01-27] MEDS: PANTOPRAZOLE SODIUM 40 MG TAB PO SCH (08:26)
[2018-01-27] MEDS: DULoxetine 60 MG CAP PO SCH (08:26)
[2018-01-27] MEDS: LETROZOLE 2.5 MG TAB PO SCH (08:26)
[2018-01-27] MEDS: FUROSEMIDE 40 MG TAB PO SCH (08:26)
[2018-01-27] MEDS: morphINE SR 30 MG TAB PO SCH (08:26)
[2018-01-27] MEDS: ENOXAPARIN 60 MG/0.6 ML SYR SC SCH ×2 (08:27→20:56)
[2018-01-27] MEDS: PROCHLORPERAZINE MALEATE 10 MG TAB PO SCH (08:31)
--- NOTE | 2018-01-27 11:34 | HOSPPROG ---
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 - cont lovenox # bilat hydronephrosis R>L - she has a R ureteral stent in place; likely d/t worsening metastatic disease; normal renal function - consider urology consult # LE edema - cont lasix # depr - cymbalta # hypothyroid - synthroid # chronic pain on continuous narcotics - cont morphine # code status - DNR # dispo - likely SNF; CM discussing options; will meet with [facility] today Subjective: seen with son and dtr; knee pain overnight, relieved with lidocaine patch; Objective: Vital Signs Temp Pulse Resp BP Pulse Ox 36.8 C 86 16 160/78 H 93 01/27/18 07:49 01/27/18 07:49 01/27/18 07:49 01/27/18 07:49 01/27/18 07:49 Laboratory Results 01/24/18 04:22 01/26/18 04:55 01/26/18 01/27/18 01/28/18 05:59 05:59 05:59 Intake Total 1300 1500 Output Total 500 600 Balance 800 1500 -600 PT 13.3 SEC (12.0-15.0) 01/23/18 16:11 INR 0.99 (0.83-1.16) 01/23/18 16:11 high risk - Physical Exam Constitutional: no apparent distress, appears nourished Cardiovascular: regular rate and rhythym, no murmur, rub, or gallop, systolic murmur Respiratory: no respiratory distress, no rales or rhonchi, clear to auscultation Gastrointestinal: soft, non-tender abdomen, no palpable masses, No guarding, No rebound, No distension ICD10 Worksheet Patient Problems: Problems Problem Status Onset Pneumonia Acute Granulosa cell carcinoma Acute Small bowel obstruction Acute Chest pain Acute 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
[2018-01-27] MEDS: PATCH REMOVAL 1 EA PATCH TD SCH (12:01)
--- NOTE | 2018-01-27 15:01 | ASMTCMCOM ---
CM Note CM Note Notes: Chart reviewed. Patient discussed with MD. The patient and her family were hoping for [facility] but unfortunately they have no beds available. Patient has been accepted to [facility]. I invited the daughter to go visit facility. The ultimate goal is to get patient home with hospice Her radiation is palliative to help control her symptoms and will receive radiation treatments 5x a week until the 05 of February. CM to follow. Plan: To SNF Date Signed: 01/27/2018 03:01 PM Electronically Signed By:Iona Mari RN
[2018-01-27] MEDS: LACTULOSE 20 GM/30 ML UDCUP PO PRN (18:15)
[2018-01-27] MEDS: morphINE SR 15 MG TAB PO SCH (20:56)
[2018-01-27] MEDS: LORazepam 1 MG TAB PO SCH (20:56)
[2018-01-27] MEDS: MEGESTROL ACETATE 400 MG/10 ML UDL PO SCH (20:56)
[2018-01-28] MEDS: hydrOXYzine HCL 25 MG TAB PO PRN ×3 (00:49→23:10)
[2018-01-28] MEDS: ACETAMINOPHEN 500 MG TAB PO PRN ×3 (00:49→23:10)
[2018-01-28] MEDS ORDERED: OXYMETAZOLINE 30 ML NASAL SPRAY EACHNARE PRN (01:06)
[2018-01-28] MEDS ORDERED: SODIUM CL NASAL 45 ML BTL EACHNARE PRN (01:06)
[2018-01-28] MEDS: LEVOTHYROXINE 50 MCG TAB PO SCH (05:40)
[2018-01-28] MEDS: DEXAMETHASONE 4 MG TAB PO SCH ×4 (05:40→23:10)
[2018-01-28] MEDS: LACTULOSE 20 GM/30 ML UDCUP PO PRN (05:54)
[2018-01-28] MEDS: PREGABALIN 150 MG CAP PO SCH ×2 (08:42→20:38)
[2018-01-28] MEDS: morphINE SR 30 MG TAB PO SCH (08:42)
[2018-01-28] MEDS: DULoxetine 60 MG CAP PO SCH (08:42)
[2018-01-28] MEDS: FUROSEMIDE 40 MG TAB PO SCH (08:43)
[2018-01-28] MEDS: PROCHLORPERAZINE MALEATE 10 MG TAB PO SCH (08:45)
[2018-01-28] MEDS: SENNOSIDES/DOCUSATE SODIUM TAB PO SCH ×2 (08:45→20:38)
[2018-01-28] MEDS: MEGESTROL ACETATE 400 MG/10 ML UDL PO SCH ×3 (08:46→14:03)
[2018-01-28] MEDS: PANTOPRAZOLE SODIUM 40 MG TAB PO SCH (08:46)
[2018-01-28] MEDS: LETROZOLE 2.5 MG TAB PO SCH (08:46)
[2018-01-28] MEDS: ENOXAPARIN 60 MG/0.6 ML SYR SC SCH ×2 (08:46→20:37)
[2018-01-28] MEDS: PATCH REMOVAL 1 EA PATCH TD SCH (08:47)
--- NOTE | 2018-01-28 15:22 | HOSPPROG ---
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 - cont lovenox # bilat hydronephrosis R>L - she has a R ureteral stent in place; likely d/t worsening metastatic disease; normal renal function - with normal renal function and no pain would not workup further at this time # LE edema - cont lasix # depr - cymbalta # hypothyroid - synthroid # chronic pain on continuous narcotics - cont morphine # code status - DNR # dispo - likely home tomorrow with home palliative care Subjective: walking with PT in the [place]; still limited movement of her R leg Objective: Vital Signs Temp Pulse Resp BP Pulse Ox 36.9 C 84 16 148/68 H 94 01/28/18 11:56 01/28/18 11:56 01/28/18 11:56 01/28/18 11:56 01/28/18 11:56 Laboratory Results 01/24/18 04:22 01/26/18 04:55 01/27/18 01/28/18 01/29/18 05:59 05:59 05:59 Intake Total 1500 1050 Output Total 600 Balance 1500 450 PT 13.3 SEC (12.0-15.0) 01/23/18 16:11 INR 0.99 (0.83-1.16) 01/23/18 16:11 - Physical Exam Constitutional: no apparent distress, appears nourished Eyes: anicteric sclera Ears, Nose, Mouth, Throat: hearing normal Cardiovascular: edema (mild bilat) Respiratory: no respiratory distress Gastrointestinal: No distension Genitourinary: No forbes in urethra Skin: warm Neurologic: AAOx3, other (R leg very weak) Psychiatric: not anxious ICD10 Worksheet Patient Problems: Problems Problem Status Onset Pneumonia Acute Granulosa cell carcinoma Acute Small bowel obstruction Acute Chest pain Acute 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
--- NOTE | 2018-01-28 15:52 | ASMTCMCOM ---
CM Note CM Note Notes: Met with patient and son to inform them that [facility] does not have a bed. Kaila from [facility] came to speak with them; they were not interested. They have decided that patient will go home with palliative care ([facility]) and continue palliative radiation. [facility] will provide home care. Likely discharge tomorrow after radiation. CM will follow. Date Signed: 01/28/2018 03:51 PM Electronically Signed By:Lexus Clemons RN
--- NOTE | 2018-01-28 19:20 | SOAPPROG ---
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 cord compression - not a surgical candidate started XRT 01/25/2018 cont dexamethasone will need rehab on discharge palliative care on board; family had long discussion w Dr Wood - no further aggressive treatment recommended per patient and family request, started megace, hence...discontinued letrozole. some clot risk with megace, but now therapeutically anticoagulated for ? IVC thrombus 2. bilateral hydronephrosis (R>L) - s/p ureteral stent on right no e/o infection monitor 3. pain - 4. hypothyroidism 5. anemia - Hct 26. discussed with patient. I don't think transfusion would benefit her right now. she agrees. EPO (chronic dz) vs iron (iron deficiency) as outpt 7. Cor status - DNR Plan: 01/28/18 19:17 Subjective: no new symptoms Objective: Vital Signs Temp Pulse Resp BP Pulse Ox 36.7 C 88 16 120/55 L 93 01/28/18 16:00 01/28/18 16:00 01/28/18 16:00 01/28/18 16:00 01/28/18 16:00 Laboratory Results 01/24/18 04:22 01/26/18 04:55 01/27/18 01/28/18 01/29/18 05:59 05:59 05:59 Intake Total 1500 1050 Output Total 600 Balance 1500 450 PT 13.3 SEC (12.0-15.0) 01/23/18 16:11 INR 0.99 (0.83-1.16) 01/23/18 16:11 Physical Exam - Physical Exam General Appearance: no apparent distress Respiratory: lungs clear Abdomen: non-tender, soft ICD10 Worksheet Patient Problems: Problems Problem Status Onset 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
[2018-01-28] MEDS: LORazepam 1 MG TAB PO SCH (20:38)
[2018-01-28] MEDS: morphINE SR 15 MG TAB PO SCH (20:38)
[2018-01-28] MEDS ORDERED: CALCIUM CARBONATE 500 MG CHEWABLE TAB PO PRN (21:00)
[2018-01-28] MEDS: LIDOCAINE 4%/MENTHOL 1% PATCH TD PRN (21:44)
[2018-01-29 05:26] LABS: PLATELET COUNT 330 10^3/uL (150-400)
[2018-01-29] MEDS: ACETAMINOPHEN 500 MG TAB PO PRN ×2 (05:34→14:54)
[2018-01-29] MEDS: DEXAMETHASONE 4 MG TAB PO SCH ×2 (05:34→13:22)
[2018-01-29] MEDS: hydrOXYzine HCL 25 MG TAB PO PRN ×2 (05:34→14:54)
[2018-01-29] MEDS: LEVOTHYROXINE 50 MCG TAB PO SCH (05:34)
[2018-01-29] MEDS: PREGABALIN 150 MG CAP PO SCH (09:23)
[2018-01-29] MEDS: SENNOSIDES/DOCUSATE SODIUM TAB PO SCH (09:23)
[2018-01-29] MEDS: DULoxetine 60 MG CAP PO SCH (09:23)
[2018-01-29] MEDS: PANTOPRAZOLE SODIUM 40 MG TAB PO SCH (09:23)
[2018-01-29] MEDS: PROCHLORPERAZINE MALEATE 10 MG TAB PO SCH (09:23)
[2018-01-29] MEDS: morphINE SR 30 MG TAB PO SCH (09:24)
[2018-01-29] MEDS: MEGESTROL ACETATE 400 MG/10 ML UDL PO SCH (09:28)
[2018-01-29] MEDS: ENOXAPARIN 60 MG/0.6 ML SYR SC SCH (09:33)
[2018-01-29] MEDS: PATCH REMOVAL 1 EA PATCH TD SCH (09:56)
[2018-01-29] MEDS: FUROSEMIDE 40 MG TAB PO SCH (13:21)
--- NOTE | 2018-01-29 14:51 | PDDCSUM ---
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 Transportation will be arranged from Rehab facility by family no further aggressive treatment recommended per patient and family request, started megace, hence...discontinued letrozole. 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 Will continue Was volume overload, and diuretics were increased. 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
--- NOTE | 2018-01-29 15:01 | PDIAF ---
- Diagnosis Diagnosis: LOWER EXTREMITY WEAKNESS Code Status: Do Not Resuscitate - Medication Management Discharge Medications: Medications to Continue on Transfer DULoxetine [Cymbalta 60 MG (*)] 60 mg PO DAILY 08/29/17 [Last Taken 01/23/18] LORazepam [Ativan (*)] 1 mg PO HS 08/29/17 [Last Taken 01/22/18] Pregabalin [LYRICA] 150 mg PO BID 08/29/17 [Last Taken 01/23/18 08:00] Promethazine HCl [Phenergan 25mg (*)] 12.5 - 25 mg PO BID PRN 08/29/17 [Last Taken 10/21/17 21:00] Sennosides/Docusate Sodium [Senokot-S] 2 each PO BID #120 tab 09/03/17 [Last Taken 01/23/18 08:00] Acetaminophen [Tylenol ES 500 mg (*)] 1,000 mg PO Q8H PRN 10/22/17 [Last Taken 01/22/18] Lactulose 15 ml PO BID PRN 10/22/17 [Last Taken 10/21/17 21:00] Levothyroxine [Synthroid 50 mcg (*)] 50 mcg PO DAILY06 10/22/17 [Last Taken 12/08] Lidocaine 5% [Lidoderm 5% Patch] 1 ea TD HS PRN 10/22/17 [Last Taken 01/22/18] morphINE SR [Ms Contin/Oramorph 15 mg (*)] 30 mg PO DAILY 10/22/17 [Last Taken 01/23/18 08:00] hydrOXYzine HCL [hydrOXYzine HCL (RX)] 25 mg PO TID PRN 12/20/17 [Last Taken 11/10] Ascorbic Acid [Vitamin C 500 mg (*)] 500 mg PO DAILY 01/23/18 [Last Taken Unknown] Cholecalciferol Vit D3 [Vitamin D3 (*)] 1,000 units PO DAILY 01/23/18 [Last Taken Unknown] Furosemide [Lasix 20 MG (*)] 20 mg PO DAILY 01/23/18 [Last Taken 01/23/18 08:00] Hydrocortisone 1% [Hydrocortisone 1% cream (*)] 1 manolo TP QID PRN 01/23/18 [Last Taken Unknown] Multivitamins [Multivitamin (*)] 1 each PO DAILY 01/23/18 [Last Taken Unknown] Omeprazole 20 mg PO DAILY 01/23/18 [Last Taken 01/23/18] morphINE SR [Ms Contin/Oramorph 15 mg (*)] 15 mg PO HS 01/23/18 [Last Taken 11/10] Megestrol Acetate [Megace 40 mg (*)] 80 mg PO BID 01/28/18 [Last Taken Unknown] Dexamethasone [Decadron 4 MG (*)] 4 mg PO Q6HRS #30 tab 01/29/18 [Last Taken Unknown] Enoxaparin [Lovenox 60 MG (*)] 60 mg SC BID #60 syr 01/29/18 [Last Taken Unknown ] oxyCODONE IR [Oxycodone Ir (*)] 5 mg PO Q4HRS PRN #30 tab 01/29/18 [Last Taken Unknown] Discharge Medications: Refer to the Discharge Home Medication list for PRN reason. - Orders Services needed: Physical Therapy, Occupational Therapy Isolation Type: None Diet Recommendation: no restrictions on diet Diet Texture: Regular Texture Diet Additional Instructions: Activity: as tolerated F/U: -RADIATION THERAPY SCHEDULED -ONCOLOGY 1-3 WEEKS - Follow Up Care Current Providers and Referrals: Latha Payne MD [Primary Care Provider] - As per Instructions
[2018-01-29 15:40] VITALS: BP 139/65
--- NOTE | 2018-01-29 17:10 | ASMTLACE ---
LACE Length of stay for Answers: 4-6 days current admission Acuity / Level of Answers: Yes Care: Did the patient have an inpatient admission? Comorbidities - select Answers: Other Notes: Ovarian cancer all that apply # of Emergency department Answers: 3-4 visits in the last 6 months Social determinants Answers: Mental health diagnosis (anxiety, depression, pers onality disorders, etc.) Score: 14 Date Signed: 01/29/2018 05:10 PM Electronically Signed By:Wanda Casey RN
--- NOTE | 2018-01-31 09:42 | ASDISCHSUM ---
Discharge Information Plan Status:Home with Home Health Medically Cleared to Leave: Discharge Date:01/29/2018 05:47 PM D/C Disposition:Home Health Service [facility] D/C Disposition:Home, Routine, Self-Care Projected Discharge Date:01/29/2018 11:00 AM Transportation at D/C:Family Discharge Delay Reason: Follow-Up Date:01/29/2018 11:00 AM Discharge Slot: Final Diagnosis: Placement Information Referral Type:*[facility]/SNF Referral ID:[id number] Provider Name: Address 1: Phone Number: Address 2: Fax Number: City: Selection Factors: State: Referral Type:Palliative Care Referral ID:[id number] Provider Name:[facility] Address 1:[address] Phone Number: Address 2: Fax Number: [facility]:[place] Selection Factors: State:[place] Patient Contact Information Contact Name:ASPEN Relationship: Address:[address] City:[place] [facility] Phone: State/Zip Code:[place] [address] Email: Financial Information Financial Class:Medicare Primary Plan Desc:MEDICARE INPATIENT Primary Plan Number:[id number] Secondary Plan Desc:[employer]/MDR SUPPLEMENT Secondary Plan Number:[id number] Assessment Information LACE LACE Length of stay for Answers: 4-6 days current admission Acuity / Level of Answers: Yes Care: Did the patient have an inpatient admission? Comorbidities - select Answers: Other Notes: Ovarian cancer all that apply # of Emergency department Answers: 3-4 visits in the last 6 months Social determinants Answers: Mental health diagnosis (anxiety, depression, pers onality disorders, etc.) Score: 14 Date Signed: 01/29/2018 05:10 PM Electronically Signed By:Wanda Casey RN [facility] Progress Note CM Note CM Note Notes: Palliative consult with pt's dtr today, palliative chaplain Richards and this CM. Consult cut short by pt's need to go to [facility] for radiation simulation. [place] need SNF at [place] until she regains her strength. First choice is [facility]. [facility] had already reached out to [facility]. They may have a bed next week but able to review until Saturday. [facility] and clinicals faxed. 2nd choice is [facility]. Both will need to arrange for radiation appts. Pt also agreed to palliative in the home with [facility]. they were alerted and referral faxed. CM to follow. Date Signed: 01/24/2018 05:02 PM Electronically Signed By:Krystin Pollock LCSW [facility] CM Progress Note CM Note CM Note Notes: Referral sent to [facility] today. [facility] was sent a referral on the . [facility] will take patients needing limited radiation. Beena will need radiation 5 days/wk through the 05 of February. Hospice could take someone on home Hospice with limited radiation for pain control not tx. Family lives [place] the street from [facility] and it would make it a lot easier if she was at [facility] for to visit. Transport from [facility] by [employer] van cost RT $8. Date Signed: 01/26/2018 03:04 PM Electronically Signed By:Bela Frye LCSW [facility] CM Progress Note CM Note CM Note Notes: Chart reviewed. Patient discussed with MD. The patient and her family were hoping for [facility] but unfortunately they have no beds available. Patient has been accepted to [facility]. I invited the daughter to go visit facility. The ultimate goal is to get patient home with hospice Her radiation is palliative to help control her symptoms and will receive radiation treatments 5x a week until the 05 of February. CM to follow. Plan: To [facility] Date Signed: 01/27/2018 03:01 PM Electronically Signed By:Iona Mari RN [facility] CM Progress Note CM Note CM Note Notes: Met with patient and son to inform them that [facility] not have a bed. Kaila from [facility] came to speak with them; they were not interested. They have decided that patient will go home with palliative care ([facility]) and continue palliative radiation. [facility] will provide home care. Likely discharge tomorrow after radiation. CM will follow. Date Signed: 01/28/2018 03:51 PM Electronically Signed By:Lexus Clemons RN Case Management Discharge Plan Note Case Management Discharge Discharge Order Complete? Answers: Yes Patient to Obtain Answers: via Family Medications Transportation Arranged Answers: Family/Friends Faxed Final Orders Answers: Yes Family Notified Answers: Yes Discharge Comments Notes: Pt will dc home today w/family. She will be followed by [facility] and also by [facility]. Orders/info sent to [facility] and spoke w/Pat from [facility]; they will see pt at home this Saturday. Orders/info available to [facility] via [employer] and notified Jesi that she will dc. Met w/pt and son and they are in agreement w/dc plan. Discussed w/RN who will call report to [facility]. Date Signed: 01/29/2018 05:05 PM Electronically Signed By:Wanda Casey RN Intervention Information Intervention Type:*IM-Signed Date of Service:01/29/2018 03:32 PM Patient Type:Inpatient Staff Member:Tete Gandara Hours: Discipline: Severity: Comment:
== END 2018-01-29 17:47 | disposition home health service (06) | DRG 542 ==
LOC: OBSVTOIN 19:02 → F1N 21:25
PROVIDERS: ADMIT Internal Medicine; ATTEND Internal Medicine
DX: C79.51 Secondary malignant neoplasm of bone (principal); C79.49 Secondary malignant neoplasm of other parts of nervous system; G95.29 Other cord compression; I82.220 Acute embolism and thrombosis of inferior vena cava; N13.1 Hydronephrosis with ureteral stricture, not elsewhere classified; G89.29 Other chronic pain; C78.00 Secondary malignant neoplasm of unspecified lung; C78.7 Secondary malignant neoplasm of liver and intrahepatic bile duct; G62.9 Polyneuropathy, unspecified; D64.9 Anemia, unspecified; I89.0 Lymphedema, not elsewhere classified; K21.9 Gastro-esophageal reflux disease without esophagitis; F32.9 Major depressive disorder, single episode, unspecified; E03.9 Hypothyroidism, unspecified; Z87.440 Personal history of urinary (tract) infections; Z87.01 Personal history of pneumonia (recurrent); Z92.3 Personal history of irradiation; Z87.891 Personal history of nicotine dependence; Z85.43 Personal history of malignant neoplasm of ovary; Z51.5 Encounter for palliative care; Z66 Do not resuscitate
CPT/HCPCS: 82947-QW; 96374; 97110-GP; 97116-GP; 97161-GP; 97166-GO; 97530-GP; 97535-GO; A9585; G8978-GP-CJ; G8979-GP-CI; G8987-GO-CK; G8988-GO-CI; J1100; J1200; J1650; J2930; Q9967

== ENCOUNTER → 2018-02-26 | Outpatient (CLI) | payer OTHER, MEDICARE ==
[~2018-02-26] MED LIST changes: +FUROSEMIDE 20 MG/2 ML VIAL IVP ONE; -IOPAMIDOL (ISOVUE-M 300) 15 ML VIAL IV ONE; -TRIAMCINOLONE ACETONIDE 200 MG/5 ML MDV IM ONE
== END ==
LOC: F1NOP 12:43
PROVIDERS: ATTEND Internal Medicine Hematology & Oncology
PROC: 30233N1 Transfusion of Nonautologous Red Blood Cells into Peripheral Vein, Percutaneous Approach (ICD-10-PCS; principal; 2018-02-26)
DX: C56.9 Malignant neoplasm of unspecified ovary (principal)
CPT/HCPCS: 36430; J1940; P9016

== ENCOUNTER 2018-03-05 22:02 | Emergency (ER) | payer OTHER, MEDICARE ==
--- NOTE | 2018-03-05 22:27 | EDPHY ---
H & P Stated Complaint: L LEG SWELLING FROM THIGH TO ANKLE/POS LYMPHEDEMA Time Seen by Provider: 03/05/18 22:26 HPI/ROS: HPI: This is an 82-year-old female who presents with Chief Complaint: Left leg swelling Location: Left leg Quality: Swelling Duration: Since this morning Signs and Symptoms: No bleeding, no radiation, no numbness, no weakness, no tingling, no incontinence, no decreased range of motion, + swelling, no pain, no fever Timing: Rapid onset Severity: Moderate Context: Patient has a history of ovarian cancer diagnosed 38 years ago with multiple surgeries chemo and radiation as well as lymphedema in her left lower leg presents with complaints of waking up this morning with her left leg being swollen and twice the size of her right. She normally takes Lasix for lymphedema but her family decided to come to the emergency room to make sure that she did not have a blood clot in that leg. She denies any actual leg pain , calf pain, shortness of breath, chest pain. Patient has not had any recent long distance travel, trauma, injury. Denies any skin color changes including no erythema, no redness, no warmth. She has been wearing compression stockings today with minimal relief. No history of congestive heart failure. Modifying Factors: Compression stockings, minimal relief Comment: ROS: see HPI Constitutional: No fever, no chills, no weight loss Eyes: No blurred vision Respiratory: No shortness of breath, no cough Cardiovascular: No chest pain Gastrointestinal: No nausea, no vomiting no diarrhea Genitourinary: No dysuria Extremities: No myalgias Neurologic: No weakness, no numbness Skin: No rashes Hematologic: No bruising, no bleeding MEDICAL/SURGICAL/SOCIAL HISTORY: Medical/surgical history: ovarian CA diag 38 yr ago with 7surg & 1 round of chemo, radiation, depression, back surgery, PNA, recurrent bowel obstruction, cancer currently, lymphedema, BALKING, INTRAOPERATIVE RADIATION, GERD Social history: Retired. Strong family support. CONSTITUTIONAL: Extremely pleasant elderly female, awake and alert, no obvious distress HEENT: Atraumatic and normocephalic. NECK: supple, no midline tenderness, flexion 45 degrees, extension 45 degrees, right and left lateral flexion 45 degrees. No meningismus. Cardiovascular: Normal S1/S2, tachycardia, regular rhythm, without murmur rub or gallop. PULMONARY/CHEST: Symmetrical and nontender. no crepitus. Clear to auscultation bilaterally. Good air movement. No accessory muscle usage. ABDOMEN: Soft, nondistended, nontender, no ecchymosis. PELVIC: no pain with rocking; bilateral hips flexion 125 degrees, extension 30 degrees, with no pain internal rotation and no pain external rotation. BACK: No midline tenderness, no paraspinous spasm, deep tendon reflexes 2/2, no pain with straight leg raise, No foot drop. Achilles reflexes are equal bilaterally. Able to walk on heels and toes without difficulty. EXTREMITIES: 2/2 pulses, strength 5/5, left leg is twice the size of her right leg; negative Homans sign; 1+ pitting edema to mid tibia. DIP/PIP/MCP flexion/ extension intact with good light touch sensation. no deformities, no clubbing, no cyanosis or edema. NEUROLOGICAL: no focal neuro deficits. GCS 15. Light touch sensation intact. SKIN: Warm and dry, no erythema. no rash. Good capillary refill. Source: Patient Exam Limitations: No limitations - Personal History Current Tetanus Diphtheria and Acellular Pertussis (TDAP): Yes Tetanus Vaccine Date: unsure - Medical/Surgical History Hx Asthma: No Hx Chronic Respiratory Disease: No Hx Diabetes: No Hx Cardiac Disease: No Hx Renal Disease: No Hx Cirrhosis: No Hx Alcoholism: No Hx HIV/AIDS: No Hx Splenectomy or Spleen Trauma: No Other PMH: ovarian CA diag 38 yr ago with 7surg & 1 round of chemo, radiation, depression, back surgery, PNA, recurrent bowel obstruction, cancer currently, lymphedema, BALKING, INTEROPERATIVE RADIATION. GERD - Social History Smoking Status: Former smoker Constitutional: Initial Vital Signs Temperature (C) 36.7 C 03/05/18 22:14 Heart Rate 104 H 03/05/18 22:14 Respiratory Rate 16 03/05/18 22:14 Blood Pressure 135/73 H 03/05/18 22:14 O2 Sat (%) 93 03/05/18 22:14 O2 Delivery Mode Room Air Allergies/Adverse Reactions: hydromorphone Allergy (Mild, Verified 01/23/18 14:59) Rash Iodinated Contrast- Oral and IV Dye Allergy (Unknown, Verified 01/23/18 14:59) Dyspnea IODINE Allergy (Severe, Uncoded 12/10/16 16:49) Dyspnea DAISIES Allergy (Uncoded 12/10/16 16:49) Other-Enter Comments tape Allergy (Uncoded 12/10/16 16:49) Home Medications: Medication Instructions Recorded DULoxetine [Cymbalta 60 MG (*)] 60 mg PO DAILY 08/29/17 LORazepam [Ativan (*)] 1 mg PO HS 08/29/17 Pregabalin [LYRICA] 150 mg PO BID 08/29/17 Promethazine HCl [Phenergan 25mg 12.5 - 25 mg PO BID PRN 08/29/17 (*)] Sennosides/Docusate Sodium 2 each PO BID #120 tab 09/03/17 [Senokot-S] Acetaminophen [Tylenol ES 500 mg 1,000 mg PO Q8H PRN 10/22/17 (*)] Lactulose 15 ml PO BID PRN 10/22/17 Levothyroxine [Synthroid 50 mcg 50 mcg PO DAILY06 10/22/17 (*)] Lidocaine 5% [Lidoderm 5% Patch] 1 ea TD HS PRN 10/22/17 morphINE SR [Ms Contin/Oramorph 15 30 mg PO DAILY 10/22/17 mg (*)] hydrOXYzine HCL [hydrOXYzine HCL 25 mg PO TID PRN 12/20/17 (RX)] Ascorbic Acid [Vitamin C 500 mg 500 mg PO DAILY 01/23/18 (*)] Cholecalciferol Vit D3 [Vitamin D3 1,000 units PO DAILY 01/23/18 (*)] Furosemide [Lasix 20 MG (*)] 20 mg PO DAILY 01/23/18 Hydrocortisone 1% [Hydrocortisone 1 manolo TP QID PRN 01/23/18 1% cream (*)] Multivitamins [Multivitamin (*)] 1 each PO DAILY 01/23/18 Omeprazole 20 mg PO DAILY 01/23/18 morphINE SR [Ms Contin/Oramorph 15 15 mg PO HS 01/23/18 mg (*)] Megestrol Acetate [Megace 40 mg 80 mg PO BID 01/28/18 (*)] Dexamethasone [Decadron 4 MG (*)] 4 mg PO Q6HRS #30 tab 01/29/18 Enoxaparin [Lovenox 60 MG (*)] 60 mg SC BID #60 syr 01/29/18 oxyCODONE IR [Oxycodone Ir (*)] 5 mg PO Q4HRS PRN #30 tab 01/29/18 Medical Decision Making - Diagnostics Imaging Results: Imaging Impressions Extremity Venous Study 03/05/18 22:30 Impression: No deep venous thrombosis left leg. ED Course/Re-evaluation: Left lower extremity ultrasound ordered No signs of neurovascular compromise/tenting of skin/compartment syndrome/ extremities and joints examined above and below area of concern and are neurovascularly intact/cellulitis/septic arthritis. Called by radiologist who advised that there is no signs of deep venous thrombosis Patient will be continue with you wearing compression stockings and take Lasix as needed per usual lymphedema protocol by her primary care provider This patient was seen under the supervision of my secondary supervising physician. I evaluated care for this patient independently. Discussed this patient with Dr. Jacobson who did not see the patient. Differential Diagnosis: Leg swelling including but not limited to hypoalbuminemia, congestive heart failure, cor pulmonale, chronic venous stasis and DVT. Departure - Departure Disposition: Home, Routine, Self-Care Clinical Impression: Lymphedema of left lower extremity Condition: Good Instructions: Lymphedema (ED) Additional Instructions: Wear compression stockings daily and elevate extremity as much as possible to reduce swelling. Use Lasix as as needed and limit salt intake. Referrals: Latha Payne MD [Primary Care Provider] - 5-7 days, if not improved
[2018-03-05 23:43] VITALS: BP 120/61
== END 2018-03-05 23:42 | disposition home or self-care (01) ==
DX: I89.0 Lymphedema, not elsewhere classified (principal); Z85.43 Personal history of malignant neoplasm of ovary; Z87.891 Personal history of nicotine dependence